=== PATIENT | female | born 1955 | race Caucasian/White ===

== ENCOUNTER → 2017-04-06 | Outpatient (CLI) | payer MEDICARE ==
--- NOTE | 2017-04-06 09:39 | CT ---
EXAMINATION TYPE: CT abdomen w con DATE OF EXAM: 04/06/2017 COMPARISON: Outside CT 10/23/2016 HISTORY: 62 year-old female liver abscess TECHNIQUE: Contiguous axial scanning of the abdomen following administration of 100 ml Omnipaque 300 IV contrast. Delayed images through the kidneys and coronal/sagittal reconstructions performed. CT DLP: 757.60 mGycm Automated exposure control for dose reduction was used. FINDINGS: The heart is normal size without pericardial effusion. Lung bases clear without pleural effusion. The previously seen inflammatory hypodense lesion anterior segment 2/3 of the left hepatic lobe has l argely resolved. There is minimal residual parenchymal hypodensity anteriorly measuring 1 cm. The adj acent inflammatory changes in the omentum and abnormal wall thickening of the adjacent mid transverse colon have also resolved. No other focal liver lesion seen. Portal venous system is patent. No bilia ry ductal dilatation. Gallbladder, adrenal glands, kidneys, spleen, and pancreas appear within normal limits. Small diverticulum of the second portion of the duodenum projecting into the pancreatic head region. No dilated small bowel, free fluid, or free air. Scattered nonenlarged mesenteric lymph nodes are see n. Scattered mild stool. Mild diverticulosis of the visualized descending colon. Bones: Degenerative changes lower lumbar spine. No osseous destructive process. IMPRESSION: 1. THE PREVIOUS INFLAMMATORY LESION/ABSCESS IN THE LEFT LIVER LOBE HAS LARGELY RESOLVED. THERE IS MIN IMAL RESIDUAL 1 CM HYPODENSITY IN THIS AREA THAT COULD REPRESENT TRACE RESIDUAL INFLAMMATION OR SCARR ING. 2. THE PREVIOUSLY SEEN PERIHEPATIC INFLAMMATION AND ABNORMAL WALL THICKENING OF THE ADJACENT MID LITTLE SVERSE COLON HAVE ALSO RESOLVED. 3. LEFT HEMICOLONIC DIVERTICULOSIS.
== END | disposition home or self-care (01) ==
LOC: RADCTMAIN 08:12
PROVIDERS: ATTEND Family Medicine
DX: K57.30 Diverticulosis of large intestine without perforation or abscess without bleeding (principal)
CPT/HCPCS: 74160; Q9967

== ENCOUNTER 2018-03-01 09:56 | Inpatient (IN) | payer MEDICARE ==
[2018-03-01] MEDS ORDERED: KETOROLAC 30 MG/ML 1 ML VIAL IVP STA (10:19)
[2018-03-01] MEDS ORDERED: SODIUM CHLORIDE 0.9% 1,000 ML IV STA (10:19)
--- NOTE | 2018-03-01 10:33 | ED ---
Abdominal Pain HPI - General Chief Complaint: Abdominal Pain Stated Complaint: POSS DIVERTICULITIS Time Seen by Provider: 03/01/18 10:12 Source: patient, RN notes reviewed Mode of arrival: ambulatory Limitations: no limitations - History of Present Illness Initial Comments: This is a 62-year-old female presents emergency Department chief complaint of left lower abdominal pain. Patient has a history of diverticulitis with abscess in her liver. She states she had a CAT scan last March which showed everything cleared. Patient had no surgery regarding this. Patient states that over the last couple days she's noticed increased pain and change in bowel habits. She does admit that she has IBS but she feels this is not her IBS this time. Patient reports no fever no chills no night sweats. Patient states pain is nonradiating at this time. She has no dysuria no hematuria denies any nausea vomiting. Patient also complains of gout of her right foot. - Related Data Home Medications Medication Instructions Recorded Confirmed Colchicine [Colcrys] 0.6 mg PO DAILY PRN 03/01/18 03/01/18 Escitalopram [Lexapro] 20 mg PO DAILY 03/01/18 03/01/18 Ibuprofen [Advil] 200 mg PO Q6HR PRN 03/01/18 03/01/18 Levothyroxine Sodium [Synthroid] 137 mcg PO DAILY 03/01/18 03/01/18 Omeprazole 40 mg PO DAILY 03/01/18 03/01/18 amLODIPine BESYLATE/BENAZEPRIL 1 cap PO DAILY 03/01/18 03/01/18 [Lotrel 5-10 mg Capsule] buPROPion HCL [Wellbutrin XL] 300 mg PO DAILY 03/01/18 03/01/18 Allergies Allergy/AdvReac Type Severity Reaction Status Date / Time apple Allergy Unknown Verified 03/01/18 10:33 peach Allergy Unknown Verified 03/01/18 10:33 pear Allergy Unknown Verified 03/01/18 10:33 TREE FRUIT (NON-CITRUS) Allergy Unknown Uncoded 03/01/18 10:33 Review of Systems ROS Statement: Those systems with pertinent positive or pertinent negative responses have been documented in the HPI. ROS Other: All systems not noted in ROS Statement are negative. Past Medical History Past Medical History: Hypertension, Thyroid Disorder Additional Past Medical History / Comment(s): diverticulitis, liver abcess History of Any Multi-Drug Resistant Organisms: None Reported Past Surgical History: Joint Replacement Additional Past Surgical History / Comment(s): partial thyroidectomy Past Psychological History: Depression Smoking Status: Former smoker Past Alcohol Use History: Occasional Past Drug Use History: None Reported General Exam Limitations: no limitations General appearance: alert, in no apparent distress Head exam: Present: atraumatic, normocephalic, normal inspection Respiratory exam: Present: normal lung sounds bilaterally. Absent: respiratory distress, wheezes, rales, rhonchi, stridor Cardiovascular Exam: Present: regular rate, normal rhythm, normal heart sounds. Absent: systolic murmur, diastolic murmur, rubs, gallop, clicks GI/Abdominal exam: Present: soft, tenderness (Moderate tenderness left side, left lower quadrant), normal bowel sounds. Absent: distended, guarding, rebound , rigid Extremities exam: Present: other (Right foot first MTP there is moderate swelling and mild erythema and tenderness) Back exam: Absent: CVA tenderness (R), CVA tenderness (L) Skin exam: Present: warm, dry Course Vital Signs 03/01/18 10:09 Temperature 98.3 F Pulse Rate 91 Respiratory 18 Rate Blood Pressure 151/85 O2 Sat by Pulse 97 Oximetry Medical Decision Making - Medical Decision Making 62-year-old female presents from for abdominal pain. Patient's found to have diverticulitis with probable abscess. Patient was started on Levaquin and Flagyl and admitted with consult to surgery. - Lab Data Result diagrams: 03/01/18 10:29 03/01/18 10:29 Lab Results 03/01/18 03/01/18 03/01/18 Range/Units 10:29 10:29 10:29 WBC 8.7 (3.8-10.6) k/uL RBC 4.91 (3.80-5.40) m/uL Hgb 14.0 (11.4-16.0) gm/dL Hct 43.0 (34.0-46.0) % MCV 87.6 (80.0-100.0) fL MCH 28.5 (25.0-35.0) pg MCHC 32.6 (31.0-37.0) g/dL RDW 12.7 (11.5-15.5) % Plt Count 291 (150-450) k/uL Neutrophils % 75 % Lymphocytes % 17 % Monocytes % 5 % Eosinophils % 2 % Basophils % 1 % Neutrophils # 6.5 (1.3-7.7) k/uL Lymphocytes # 1.5 (1.0-4.8) k/uL Monocytes # 0.5 (0-1.0) k/uL Eosinophils # 0.1 (0-0.7) k/uL Basophils # 0.1 (0-0.2) k/uL Sodium 140 (137-145) mmol/L Potassium 3.9 (3.5-5.1) mmol/L Chloride 100 (98-107) mmol/L Carbon Dioxide 26 (22-30) mmol/L Anion Gap 14 mmol/L BUN 12 (7-17) mg/dL Creatinine 0.63 (0.52-1.04) mg/dL Est GFR (CKD-EPI)AfAm >90 (>60 ml/min/1.73 sqM) Est GFR (CKD-EPI)NonAf >90 (>60 ml/min/1.73 sqM) Glucose 94 (74-99) mg/dL Uric Acid 5.6 (3.7-7.4) mg/dL Calcium 9.3 (8.4-10.2) mg/dL Total Bilirubin 0.4 (0.2-1.3) mg/dL AST 19 (14-36) U/L ALT 29 (9-52) U/L Alkaline Phosphatase 71 (38-126) U/L Total Protein 6.9 (6.3-8.2) g/dL Albumin 4.3 (3.5-5.0) g/dL Amylase 74 (30-110) U/L Lipase 166 (23-300) U/L Urine Color Yellow Urine Appearance Clear (Clear) Urine pH 6.0 (5.0-8.0) Ur Specific [place] 1.010 (1.001-1.035) Urine Protein Negative (Negative) Urine Glucose (UA) Negative (Negative) Urine Ketones Trace H (Negative) Urine Blood Negative (Negative) Urine Nitrite Negative (Negative) Urine Bilirubin Negative (Negative) Urine Urobilinogen <2.0 (<2.0) mg/dL Ur Leukocyte Esterase Negative (Negative) Disposition Clinical Impression: Diverticulitis of intestine with abscess Disposition: ADMITTED IP TO THIS HOSP Condition: Stable Referrals: Kelly Nguyễn MD [Primary Care Provider] - 1-2 days
[2018-03-01 10:47] LABS: Appearance,Urine Clear (Clear); Bilirubin,Urine Negative (Negative); Blood,Urine Negative (Negative); Color,Urine Yellow; Glucose,Urine (UA) Negative (Negative); Ketones,Urine Trace (Negative); Leukocyte Esterase,Urine Negative (Negative); Nitrite,Urine Negative (Negative); Protein,Urine Negative (Negative); Urobilinogen,Urine <2.0 mg/dL (<2.0)
[2018-03-01 10:48] LABS: Basophils # (A) 0.1 k/uL (0-0.2); Basophils % (A) 1 %; Eosinophils # (A) 0.1 k/uL (0-0.7); Eosinophils % (A) 2 %; Lymphocytes # (A) 1.5 k/uL (1.0-4.8); Lymphocytes % (A) 17 %; MCH 28.5 pg (25.0-35.0); MCHC 32.6 g/dL (31.0-37.0); MCV 87.6 fL (80.0-100.0); Mean Platelet Volume 7.2; Monocytes # (A) 0.5 k/uL (0-1.0); Monocytes % (A) 5 %; Neutrophils # (A) 6.5 k/uL (1.3-7.7); Neutrophils % (A) 75 %; Platelet Count 291 k/uL (150-450); RBC 4.91 m/uL (3.80-5.40); RDW 12.7 % (11.5-15.5); WBC 8.7 k/uL (3.8-10.6)
[2018-03-01 10:56] LABS: ALT 29 U/L (9-52); AST 19 U/L (14-36); Albumin 4.3 g/dL (3.5-5.0); Alkaline Phosphatase 71 U/L (38-126); Amylase 74 U/L (30-110); Anion Gap 14 mmol/L; Blood Urea Nitrogen 12 mg/dL (7-17); Calcium 9.3 mg/dL (8.4-10.2); Carbon Dioxide 26 mmol/L (22-30); Chloride 100 mmol/L (98-107); Glucose 94 mg/dL (74-99); Lipase 166 U/L (23-300); Potassium 3.9 mmol/L (3.5-5.1); Sodium 140 mmol/L (137-145); Total Bilirubin 0.4 mg/dL (0.2-1.3); Total Protein 6.9 g/dL (6.3-8.2); Uric Acid 5.6 mg/dL (3.7-7.4)
--- NOTE | 2018-03-01 11:32 | CT ---
EXAMINATION TYPE: CT abdomen pelvis w con DATE OF EXAM: 03/01/2018 COMPARISON: 04/06/2017 HISTORY: Patient complains of LLQ pain, nausea, and diarrhea. CT DLP: 1564 mGycm Automated exposure control for dose reduction was used. CONTRAST: CT scan of the abdomen pelvis is performed with IV Contrast, patient injected with 100 mL of Isovue 3 00. FINDINGS- LUNG BASES- No significant abnormality is appreciated. LIVER/GB- No gross abnormality is appreciated. PANCREAS- No gross abnormality is seen. SPLEEN- No gross abnormality is seen. ADRENALS-stable 1 cm left adrenal nodule. KIDNEYS/BLADDER- no hydronephrosis nephrolithiasis or renal mass. BOWEL-there are numerous diverticula within the sigmoid colon with marked wall thickening and surroun ding pericolonic inflammatory change. Small amount of free fluid seen. Findings are most typical of d iverticulitis. A colitis would also be in the differential diagnosis. Follow to resolution to exclude underlying mucosal lesion. The appendix is normal. There is some fatty replacement of the wall of the right:. This is a nonspeci fic finding. There is a small hiatal hernia. LYMPH NODES- No greater than 1cm abdominal or pelvic lymph nodes are appreciated. OSSEOUS STRUCTURES-hypertrophic and degenerative changes of the spine are noted. OTHER- tiny periumbilical hernia noted. Atherosclerotic changes aorta but no evidence of aneurysm. IMPRESSION- 1. Marked wall thickening sigmoid colon and rectosigmoid junction with pericolonic inflammatory hilliard e and small amount of free fluid. Diverticulitis and colitis in the differential diagnosis. Would inc lude colitis given the inflammation appears more centered around the rectosigmoid junction rather ne[place] n the diverticulum. However, given the significant presence of diverticulum in the region diverticuli tis should be considered. Tiny 7 mm fluid density adjacent to the rectum most likely is related to an incidental tiny ovarian follicle. Tiny abscess not entirely excluded and could be followed on a shor t-term basis. Recommend follow up to resolution of the colonic findings to exclude underlying mucosal lesion.
[2018-03-01] MEDS ORDERED: LEVOFLOXACIN 750MG-D5W PMX 750 MG in DEXTROSE/WATER 1 150ML.BAG IVPB STA (11:47)
[2018-03-01] MEDS ORDERED: metroNIDAZOLE-NS PMX 500 MG in SALINE 1 100ML.BAG IVPB STA (11:50)
[2018-03-01] MEDS ORDERED: NALOXONE 0.4 MG/ML 1 ML VIAL IV PRN (11:50)
[2018-03-01] MEDS ORDERED: ONDANSETRON 4 MG/2 ML VIAL IVP PRN (11:50)
[2018-03-01] MEDS ORDERED: ACETAMINOPHEN TAB 325 MG TAB PO PRN (11:50)
[2018-03-01] MEDS: SODIUM CHLORIDE 0.9% 1,000 ML IV SCH (12:13)
[2018-03-01] MEDS ORDERED: COLCHICINE 0.6 MG EACH PO PRN (13:16)
[2018-03-01] MEDS ORDERED: IBUPROFEN 200 MG TAB PO PRN (13:16)
--- NOTE | 2018-03-01 13:33 | P.HPIM ---
History of Present Illness H&P Date: 03/01/18 Chief Complaint: Abdominal pain Desi Wiseman is a 62 year old female patient of Dr Nguyễn, who presented to [facility] ER with a chief complaint of abdominal pain, patient stated that her pain started 3 weeks ago, she tried to stay on clear liquid diet and treat her symptoms on her own, however she started having worsening severe pain in the left lower quadrant she try to contact Dr. Nguyễn' s office, and then she decided to come to emergency room. She has known history of acute diverticulitis in the past with multiple exacerbations requiring prolonged courses of antibiotics, she denies ever having any abdominal surgery. She was evaluated in the emergency room computed tomography scan revealed evidence of acute diverticulitis with possible abscess formation she was started on IV antibiotics and admitted to medical floor surgical consultation was requested. Past medical history: Patient has known history of episodes of acute diverticulitis in the past, she had a history of thyroid adenoma requiring partial thyroidectomy, she has known history of gout, otherwise she denies any significant past medical history, there is no history of coronary artery disease no history of congestive heart failure she denies any history of lung disease or kidney disease. Social history: Patient used to smoke she quit 20 years ago, she drinks alcohol rarely, she denies any kind of illicit drug use, she lives independently and able to take care of her daily needs. Family history: Sister and aunt were diagnosed with breast cancer otherwise no significant history could be obtained Past surgical history significant for partial thyroidectomy otherwise patient denies any symptoms Past Medical History Past Medical History: GERD/Reflux, Hyperlipidemia, Hypertension, Thyroid Disorder Additional Past Medical History / Comment(s): IBS, diverticulitis, past liver abscess, R foot gout, hypothyroid History of Any Multi-Drug Resistant Organisms: None Reported Past Surgical History: Joint Replacement Additional Past Surgical History / Comment(s): Partial thyroidectomy for adenoma , EGD/colonoscopy with benign polypectomy, diagnostic laparoscopy-fallopian tubes "blocked", Past Anesthesia/Blood Transfusion Reactions: Postoperative Nausea & Vomiting ( PONV) Smoking Status: Former smoker - Past Family History Father Family Medical History: Congestive Heart Failure (CHF), Coronary Artery Disease (CAD), Diabetes Mellitus Additional Family Medical History / Comment(s): Father at the age of 72 yrs. Mother Family Medical History: No Reported History Additional Family Medical History / Comment(s): Mother was healthy and lived to be 96 yrs old. Medications and Allergies Home Medications Medication Instructions Recorded Confirmed Type Colchicine [Colcrys] 0.6 mg PO DAILY PRN 03/01/18 03/01/18 History Escitalopram [Lexapro] 20 mg PO DAILY 03/01/18 03/01/18 History Ibuprofen [Advil] 200 mg PO Q6HR PRN 03/01/18 03/01/18 History Levothyroxine Sodium [Synthroid] 137 mcg PO DAILY 03/01/18 03/01/18 History Omeprazole 40 mg PO DAILY 03/01/18 03/01/18 History amLODIPine BESYLATE/BENAZEPRIL 1 cap PO DAILY 03/01/18 03/01/18 History [Lotrel 5-10 mg Capsule] buPROPion HCL [Wellbutrin XL] 300 mg PO DAILY 03/01/18 03/01/18 History Allergies Allergy/AdvReac Type Severity Reaction Status Date / Time apple Allergy Unknown Verified 03/01/18 10:33 peach Allergy Unknown Verified 03/01/18 10:33 pear Allergy Unknown Verified 03/01/18 10:33 TREE FRUIT (NON-CITRUS) Allergy Unknown Uncoded 03/01/18 10:33 Physical Exam Vitals: Vital Signs Temp Pulse Pulse Resp BP BP Pulse Ox 03/01/18 12:40 98 F 75 18 133/80 97 03/01/18 12:13 99.1 F 83 18 149/68 99 03/01/18 10:09 98.3 F 91 18 151/85 97 Intake and Output 02/28/18 03/01/18 03/01/18 22:59 06:59 14:59 Other: Weight 80.739 kg In general patient is alert and oriented 3 in no apparent distress HEENT head normocephalic and atraumatic Neck is supple no JVD no goiter no lymphadenopathy Chest exam reveals a few scattered crackles bilaterally no wheezing Cardiac exam reveals regular heart sounds S1 and S2 no gallops no murmurs Abdomen is soft with severe tenderness in the left lower quadrant no rigidity there is some rebound normal bowel sounds in all 4 quadrants Extremity exam reveals no edema there is erythema and tenderness at the base of the right big toe Results CBC & Chem 7: 03/01/18 10:29 03/01/18 10:29 Labs: Abnormal Lab Results - Last 24 Hours (Table) 03/01/18 Range/Units 10:29 Urine Ketones Trace H (Negative) Thrombosis Risk Factor Assmnt - Choose All That Apply Any of the Below Risk Factors Present?: Yes Each Factor Represents 1 point: Hx of IBD, Obesity (BMI >25) Other Risk Factors: Yes Each Risk Factor Represents 2 Points: Age 61-74 years Other congenital or acquired thrombophilia - If yes, enter type in comment: No Thrombosis Risk Factor Assessment Total Risk Factor Score: 4 Thrombosis Risk Factor Assessment Level: Moderate Risk Assessment and Plan Plan: #1 acute diverticulitis, with possible small abscess patient is admitted to medical floor, she was started on IV antibiotic Levaquin and Flagyl, surgical consultation was requested. #2 acute gout exacerbation, patient is maintained on colchicine will continue, will check uric acid level #3 underlying history of hypothyroidism, status post partial thyroidectomy for adenoma, continue with Synthroid 137 g daily #4 underlying history of hypertension continue current medications #5 underlying history of depression maintained on Lexapro and bupropion will continue Medication and labs were reviewed, computed tomography scan reviewed Will recheck labs in a.m. Add Lovenox 40 mg subcu daily for DVT prophylaxis continue with omeprazole 40 mg by mouth daily for GI prophylaxis
--- NOTE | 2018-03-01 14:28 | P.GSCN ---
History of Present Illness Consult date: 03/01/18 Reason for Consult: Abdominal pain History of present illness: 62-year-old female who presented to the emergency room with a chief complaint of developing left lower quadrant abdominal pain. Patient stated it started approximately 3 weeks ago. Patient states that she did start a clear liquid diet on her own trying to control the discomfort did not work. Patient states she does have a history of diverticulosis has been treated in the past for diverticulitis. Additionally reports has been treated several years ago for a liver abscess had to be on prolonged IV antibiotics Given the above clinical presentation surgical consultation has been requested. Patient states that she has a history of irritable bowel syndrome and diverticulosis. Has been following closely a diverticulosis diet. Patient states her last colonoscopy was approximately 2 years ago a polyp was removed. The colonoscopy was done in [place]. Patient states that she's had multiple exacerbations requiring long IV antibiotic use. In the emergency room patient did have a CAT scan of the abdomen pelvis with contrast to evaluate the left lower quadrant pain. Reviewing the report pancreas no gross abnormality liver no gross abnormality. The bowel numerous diverticuli within the sigmoid colon marked wall thickening small amount of free fluid seen findings are typical of diverticulitis. Appendix appears normal a small hiatal hernia. Review of Systems Essentially unremarkable except as mentioned in the present illness Past Medical History Past Medical History: GERD/Reflux, Hyperlipidemia, Hypertension, Thyroid Disorder Additional Past Medical History / Comment(s): IBS, diverticulitis, past liver abscess, R foot gout, hypothyroid History of Any Multi-Drug Resistant Organisms: None Reported Past Surgical History: Joint Replacement Additional Past Surgical History / Comment(s): Partial thyroidectomy for adenoma , EGD/colonoscopy with benign polypectomy, diagnostic laparoscopy-fallopian tubes "blocked", Past Anesthesia/Blood Transfusion Reactions: Postoperative Nausea & Vomiting ( PONV) Smoking Status: Former smoker - Past Family History Father Family Medical History: Congestive Heart Failure (CHF), Coronary Artery Disease (CAD), Diabetes Mellitus Additional Family Medical History / Comment(s): Father at the age of 72 yrs. Mother Family Medical History: No Reported History Additional Family Medical History / Comment(s): Mother was healthy and lived to be 96 yrs old. Medications and Allergies Home Medications Medication Instructions Recorded Confirmed Type Colchicine [Colcrys] 0.6 mg PO DAILY PRN 03/01/18 03/01/18 History Escitalopram [Lexapro] 20 mg PO DAILY 03/01/18 03/01/18 History Ibuprofen [Advil] 200 mg PO Q6HR PRN 03/01/18 03/01/18 History Levothyroxine Sodium [Synthroid] 137 mcg PO DAILY 03/01/18 03/01/18 History Omeprazole 40 mg PO DAILY 03/01/18 03/01/18 History amLODIPine BESYLATE/BENAZEPRIL 1 cap PO DAILY 03/01/18 03/01/18 History [Lotrel 5-10 mg Capsule] buPROPion HCL [Wellbutrin XL] 300 mg PO DAILY 03/01/18 03/01/18 History Allergies Allergy/AdvReac Type Severity Reaction Status Date / Time apple Allergy Unknown Verified 03/01/18 10:33 peach Allergy Unknown Verified 03/01/18 10:33 pear Allergy Unknown Verified 03/01/18 10:33 TREE FRUIT (NON-CITRUS) Allergy Unknown Uncoded 03/01/18 10:33 Surgical - Exam Vital Signs Temp Pulse Resp BP Pulse Ox 98.3 F 91 18 151/85 97 03/01/18 10:09 03/01/18 10:09 03/01/18 10:09 03/01/18 10:09 03/01/18 10:09 GENERAL APPEARANCE: 62-year-old female sitting up in bed is alert, oriented, in no acute distress. VITAL SIGNS: Reviewed HEENT: Head is normocephalic and atraumatic. Pupils are equal and reactive. The nares are patent. Oropharynx is clear without lesions. NECK: Supple without lymphadenopathy. Traches midline. HEART: S1, S2. Regular rate and rhythm. Denying chest pain LUNGS: No crackles or wheezes are heard. Adequate air movement bilaterally on room air no shortness of breath ABDOMEN: Soft, tenderness to the left lower quadrant nondistended with good bowel sounds. No peritoneal signs. No palpable organomegaly or masses. Reports a nausea sensation no emesis states had a bowel movement passing gas EXTREMITIES: Normal skin color and turgor. No cyanosis, rash, ulceration, clubbing or edema. Radial pedal pulses are 2/4 bilaterally. NEUROLOGICAL: No focal deficits. Strength and sensation are grossly intact. Results - Labs 03/01/18 10:29 03/01/18 10:29 Abnormal Lab Results - Last 24 Hours (Table) 03/01/18 Range/Units 10:29 Urine Ketones Trace H (Negative) Diabetes panel 03/01/18 Range/Units 10:29 Sodium 140 (137-145) mmol/L Potassium 3.9 (3.5-5.1) mmol/L Chloride 100 (98-107) mmol/L Carbon Dioxide 26 (22-30) mmol/L BUN 12 (7-17) mg/dL Creatinine 0.63 (0.52-1.04) mg/dL Glucose 94 (74-99) mg/dL Calcium 9.3 (8.4-10.2) mg/dL AST 19 (14-36) U/L ALT 29 (9-52) U/L Alkaline Phosphatase 71 (38-126) U/L Total Protein 6.9 (6.3-8.2) g/dL Albumin 4.3 (3.5-5.0) g/dL Calcium panel 03/01/18 Range/Units 10:29 Calcium 9.3 (8.4-10.2) mg/dL Albumin 4.3 (3.5-5.0) g/dL Pituitary panel 03/01/18 Range/Units 10:29 Sodium 140 (137-145) mmol/L Potassium 3.9 (3.5-5.1) mmol/L Chloride 100 (98-107) mmol/L Carbon Dioxide 26 (22-30) mmol/L BUN 12 (7-17) mg/dL Creatinine 0.63 (0.52-1.04) mg/dL Glucose 94 (74-99) mg/dL Calcium 9.3 (8.4-10.2) mg/dL Adrenal panel 03/01/18 Range/Units 10:29 Sodium 140 (137-145) mmol/L Potassium 3.9 (3.5-5.1) mmol/L Chloride 100 (98-107) mmol/L Carbon Dioxide 26 (22-30) mmol/L BUN 12 (7-17) mg/dL Creatinine 0.63 (0.52-1.04) mg/dL Glucose 94 (74-99) mg/dL Calcium 9.3 (8.4-10.2) mg/dL Total Bilirubin 0.4 (0.2-1.3) mg/dL AST 19 (14-36) U/L ALT 29 (9-52) U/L Alkaline Phosphatase 71 (38-126) U/L Total Protein 6.9 (6.3-8.2) g/dL Albumin 4.3 (3.5-5.0) g/dL Assessment and Plan Assessment: Impression Present on admission left lower quadrant abdominal pain suspect due to acute diverticulitis Computed tomography scan of abdomen and pelvis show evidence of an acute diverticulitis possible small abscess History of a liver abscess treated with IV antibiotics 2 years prior Depressive disorder History of irritable bowel syndrome History of prior acute diverticulitis exacerbations requiring admission with IV antibiotic Plan Continue IV antibiotic Levaquin and Flagyl as ordered IV fluid for hydration pain control DVT and GI prophylaxis Maintain clear liquid diet Home meds as appropriate Will follow with you with further surgical recommendations pending clinical course Surgical consultation note dictated for The above impression and plan of care have been discussed and directed by signing physician. Kamla Gregory nurse practitioner acting as scribe for signing physician.
[2018-03-01] MEDS: metroNIDAZOLE-NS PMX 500 MG in SALINE 1 100ML.BAG IVPB SCH ×2 (15:40→21:51)
[2018-03-01] MEDS: KETOROLAC 30 MG/ML 1 ML VIAL IVP PRN (18:22)
[2018-03-02] MEDS: HYDROcodone/APAP 5-325MG 1 EACH TAB PO PRN ×4 (00:29→21:12)
[2018-03-02] MEDS: metroNIDAZOLE-NS PMX 500 MG in SALINE 1 100ML.BAG IVPB SCH ×4 (05:02→21:12)
[2018-03-02] MEDS: SODIUM CHLORIDE 0.9% 1,000 ML IV SCH ×2 (05:03→12:49)
[2018-03-02] MEDS: LEVOTHYROXINE 137 MCG TAB PO SCH (05:38)
[2018-03-02] MEDS: amLODIPine 10 MG TAB PO SCH (09:25)
[2018-03-02] MEDS: PANTOPRAZOLE 40 MG TABLET PO SCH (09:25)
[2018-03-02] MEDS: buPROPion XL 300 MG TAB.ER.24H PO SCH (09:26)
[2018-03-02] MEDS: LEVOFLOXACIN 500MG-D5W PMX 500 MG in DEXTROSE/WATER 1 100ML.BAG IVPB SCH (09:27)
[2018-03-02] MEDS: ENOXAPARIN 40 MG/0.4 ML SYRINGE SQ SCH (09:27)
[2018-03-02] MEDS: KETOROLAC 30 MG/ML 1 ML VIAL IVP PRN (09:27)
[2018-03-02] MEDS: LISINOPRIL 10 MG TAB PO SCH (09:27)
[2018-03-02] MEDS: ESCITALOPRAM 20 MG TAB PO SCH (09:27)
--- NOTE | 2018-03-02 10:04 | P.PN ---
Progress Note - Text Progress Note Date: 03/02/18 The patient feels better. She has less abdominal pain. On exam her vital signs are still. Her abdomen soft. Resolving diverticulitis. Patient will have her diet advanced. She'll most likely be discharged home tomorrow.
[2018-03-02 11:37] VITALS: BMI 29.6
--- NOTE | 2018-03-02 11:58 | P.PN ---
Subjective Progress Note Date: 03/02/18 Desi Wiseman is a 62 year old female patient of Dr Nguyễn, who presented to [facility] ER with a chief complaint of abdominal pain, patient stated that her pain started 3 weeks ago, she tried to stay on clear liquid diet and treat her symptoms on her own, however she started having worsening severe pain in the left lower quadrant she try to contact Dr. Nguyễn' s office, and then she decided to come to emergency room. She has known history of acute diverticulitis in the past with multiple exacerbations requiring prolonged courses of antibiotics, she denies ever having any abdominal surgery. She was evaluated in the emergency room computed tomography scan revealed evidence of acute diverticulitis with possible abscess formation she was started on IV antibiotics and admitted to medical floor surgical consultation was requested. On 03/02/2018 patient is alert and oriented 3 in no apparent distress she is still complaining of pain in the left lower quadrant but less severe than yesterday otherwise she denies any complaints there is no fever or chills no headache or dizziness no chest pain no shortness of breath no cough no nausea or vomiting no diarrhea and no urinary symptoms. Objective - Vital Signs Vital signs: Vital Signs Temp 98.4 F 03/02/18 05:00 Pulse 66 03/02/18 05:00 Resp 16 03/02/18 05:00 BP 149/72 03/02/18 05:00 Pulse Ox 93 L 03/02/18 05:00 Intake & Output 03/01/18 03/02/18 03/02/18 18:59 06:59 18:59 Intake Total 3100 Balance 3100 Weight 80.739 kg 80.739 kg Intake: Intake, IV Titration 2100 Amount Sodium Chloride 0.9% 1, 2000 000 ml @ 125 mls/hr IV . Q8H [facility] Rx#:[id number] metroNIDAZOLE-NS PMX 500 100 mg In Saline 1 100ml.bag @ 100 mls/hr IVPB Q6H [facility] Rx#:[id number] Oral 1000 Other: # Voids 2 - Exam In general patient is alert and oriented 3 in no apparent distress HEENT head normocephalic and atraumatic Neck is supple no JVD no goiter no lymphadenopathy Chest exam reveals a few scattered crackles bilaterally no wheezing Cardiac exam reveals regular heart sounds S1 and S2 no gallops no murmurs Abdomen is soft with tenderness in the left lower quadrant, improved since yesterday no rigidity no rebound normal bowel sounds in all 4 quadrants Extremity exam reveals no edema there is erythema and tenderness at the base of the right big toe - Labs CBC & Chem 7: 03/01/18 10:29 03/01/18 10:29 Assessment and Plan Plan: #1 acute diverticulitis, with possible small abscess patient is admitted to medical floor, she was started on IV antibiotic Levaquin and Flagyl, surgical consultation was requested. Will advance diet to full liquid diet #2 acute gout exacerbation, patient is maintained on colchicine will continue, will check uric acid level #3 underlying history of hypothyroidism, status post partial thyroidectomy for adenoma, continue with Synthroid 137 g daily #4 underlying history of hypertension continue current medications #5 underlying history of depression maintained on Lexapro and bupropion will continue Medication and labs were reviewed, computed tomography scan reviewed Lovenox 40 mg subcu daily for DVT prophylaxis continue with omeprazole 40 mg by mouth daily for GI prophylaxis
[2018-03-02] MEDS: ZOLPIDEM 5 MG TAB PO PRN (22:58)
[2018-03-03] MEDS: metroNIDAZOLE-NS PMX 500 MG in SALINE 1 100ML.BAG IVPB SCH ×4 (03:04→21:44)
[2018-03-03] MEDS: LEVOTHYROXINE 137 MCG TAB PO SCH (05:37)
[2018-03-03] MEDS: HYDROcodone/APAP 5-325MG 1 EACH TAB PO PRN ×3 (06:21→21:43)
[2018-03-03] MEDS: SODIUM CHLORIDE 0.9% 1,000 ML IV SCH ×2 (07:22→14:55)
[2018-03-03] MEDS: ENOXAPARIN 40 MG/0.4 ML SYRINGE SQ SCH (07:24)
[2018-03-03] MEDS: amLODIPine 10 MG TAB PO SCH (07:26)
[2018-03-03] MEDS: PANTOPRAZOLE 40 MG TABLET PO SCH (07:26)
[2018-03-03] MEDS: LISINOPRIL 10 MG TAB PO SCH (07:27)
[2018-03-03] MEDS: buPROPion XL 300 MG TAB.ER.24H PO SCH (07:27)
[2018-03-03] MEDS: ESCITALOPRAM 20 MG TAB PO SCH (07:27)
[2018-03-03] MEDS: LEVOFLOXACIN 500MG-D5W PMX 500 MG in DEXTROSE/WATER 1 100ML.BAG IVPB SCH (07:27)
[2018-03-03 07:43] LABS: Basophils % (A) 1 %; Eosinophils # (A) 0.1 k/uL (0-0.7); Eosinophils % (A) 3 %; HCT 38.2 % (34.0-46.0); HGB 12.3 gm/dL (11.4-16.0); Lymphocytes # (A) 1.2 k/uL (1.0-4.8); Lymphocytes % (A) 30 %; MCH 28.5 pg (25.0-35.0); MCHC 32.3 g/dL (31.0-37.0); MCV 88.5 fL (80.0-100.0); Mean Platelet Volume 7.2; Monocytes # (A) 0.3 k/uL (0-1.0); Monocytes % (A) 7 %; Neutrophils # (A) 2.2 k/uL (1.3-7.7); Neutrophils % (A) 57 %; Platelet Count 249 k/uL (150-450); RBC 4.32 m/uL (3.80-5.40); RDW 12.7 % (11.5-15.5); WBC 3.9 k/uL (3.8-10.6)
[2018-03-03 08:04] LABS: ALT 27 U/L (9-52); AST 16 U/L (14-36); Albumin 3.5 g/dL (3.5-5.0); Alkaline Phosphatase 55 U/L (38-126); Anion Gap 10 mmol/L; Blood Urea Nitrogen 3 mg/dL (7-17); Calcium 9.4 mg/dL (8.4-10.2); Carbon Dioxide 28 mmol/L (22-30); Chloride 102 mmol/L (98-107); Glucose 88 mg/dL (74-99); Potassium 4.1 mmol/L (3.5-5.1); Sodium 140 mmol/L (137-145); Total Bilirubin 0.2 mg/dL (0.2-1.3)
--- NOTE | 2018-03-03 09:18 | P.PN ---
Progress Note - Text Progress Note Date: 03/03/18 The patient feels better. She has minimal complaints of pain. On exam her vital signs are stable. Her abdomen soft. Resolving diverticulitis. Patient is stable for discharge. She may follow-up next week in the office.
--- NOTE | 2018-03-03 15:31 | P.PN ---
Subjective Progress Note Date: 03/03/18 Desi Wiseman is a 62 year old female patient of Dr Nguyễn, who presented to [facility] ER with a chief complaint of abdominal pain, patient stated that her pain started 3 weeks ago, she tried to stay on clear liquid diet and treat her symptoms on her own, however she started having worsening severe pain in the left lower quadrant she try to contact Dr. Nguyễn' s office, and then she decided to come to emergency room. She has known history of acute diverticulitis in the past with multiple exacerbations requiring prolonged courses of antibiotics, she denies ever having any abdominal surgery. She was evaluated in the emergency room computed tomography scan revealed evidence of acute diverticulitis with possible abscess formation she was started on IV antibiotics and admitted to medical floor surgical consultation was requested. On 03/02/2018 patient is alert and oriented 3 in no apparent distress she is still complaining of pain in the left lower quadrant but less severe than yesterday otherwise she denies any complaints there is no fever or chills no headache or dizziness no chest pain no shortness of breath no cough no nausea or vomiting no diarrhea and no urinary symptoms. 03/13/2018 patient is alert and oriented still complaining of pain and tenderness in the left lower quadrant otherwise she denies any complaints she is tolerating full liquid diet well there is no fever or chills no headache or dizziness no chest pain or shortness of breath no cough no vomiting no diarrhea and no urinary symptoms Objective - Vital Signs Vital signs: Vital Signs Temp 98.8 F 03/03/18 14:08 Pulse 82 03/03/18 14:08 Resp 18 03/03/18 14:08 BP 123/73 03/03/18 14:08 Pulse Ox 96 03/03/18 14:08 Intake & Output 03/02/18 03/03/18 03/03/18 18:59 06:59 18:59 Intake Total 500 Balance 500 Weight 80.739 kg Intake: Intake, IV Titration 500 Amount Sodium Chloride 0.9% 1, 500 000 ml @ 125 mls/hr IV . Q8H [facility] Rx#:[id number] Other: # Voids 5 1 # Bowel Movements 1 1 - Exam In general patient is alert and oriented 3 in no apparent distress HEENT head normocephalic and atraumatic Neck is supple no JVD no goiter no lymphadenopathy Chest exam reveals a few scattered crackles bilaterally no wheezing Cardiac exam reveals regular heart sounds S1 and S2 no gallops no murmurs Abdomen is soft with tenderness in the left lower quadrant, improved since yesterday no rigidity no rebound normal bowel sounds in all 4 quadrants Extremity exam reveals no edema there is erythema and tenderness at the base of the right big toe - Labs CBC & Chem 7: 03/03/18 06:52 03/03/18 06:52 Labs: Abnormal Lab Results - Last 24 Hours (Table) 03/03/18 Range/Units 06:52 BUN 3 L (7-17) mg/dL Creatinine 0.50 L (0.52-1.04) mg/dL Total Protein 6.0 L (6.3-8.2) g/dL Assessment and Plan Plan: #1 acute diverticulitis, with possible small abscess patient is admitted to medical floor, she was started on IV antibiotic Levaquin and Flagyl, surgical consultation was requested. Will advance diet to full liquid diet #2 acute gout exacerbation, patient is maintained on colchicine will continue, will check uric acid level #3 underlying history of hypothyroidism, status post partial thyroidectomy for adenoma, continue with Synthroid 137 g daily #4 underlying history of hypertension continue current medications #5 underlying history of depression maintained on Lexapro and bupropion will continue Medication and labs were reviewed, computed tomography scan reviewed Lovenox 40 mg subcu daily for DVT prophylaxis continue with omeprazole 40 mg by mouth daily for GI prophylaxis Will advance diet to regular diet will recheck labs in a.m.
[2018-03-03] MEDS: ZOLPIDEM 5 MG TAB PO PRN (23:37)
[2018-03-04] MEDS: metroNIDAZOLE-NS PMX 500 MG in SALINE 1 100ML.BAG IVPB SCH ×2 (03:51→11:35)
[2018-03-04 05:56] VITALS: BP 128/72; PULSE 75; RESP 16
[2018-03-04] MEDS: amLODIPine 10 MG TAB PO SCH (08:08)
[2018-03-04] MEDS: buPROPion XL 300 MG TAB.ER.24H PO SCH (08:08)
[2018-03-04] MEDS: PANTOPRAZOLE 40 MG TABLET PO SCH (08:08)
[2018-03-04] MEDS: ESCITALOPRAM 20 MG TAB PO SCH (08:08)
[2018-03-04] MEDS: LISINOPRIL 10 MG TAB PO SCH (08:08)
[2018-03-04] MEDS: ENOXAPARIN 40 MG/0.4 ML SYRINGE SQ SCH ×2 (08:08→08:10)
[2018-03-04] MEDS: LEVOTHYROXINE 137 MCG TAB PO SCH (08:08)
[2018-03-04] MEDS: KETOROLAC 30 MG/ML 1 ML VIAL IVP PRN (08:22)
[2018-03-04 08:37] VITALS: TEMP 98
[2018-03-04] MEDS: LEVOFLOXACIN 500MG-D5W PMX 500 MG in DEXTROSE/WATER 1 100ML.BAG IVPB SCH (08:45)
[2018-03-04 09:09] LABS: Basophils % (A) 1 %; Eosinophils # (A) 0.1 k/uL (0-0.7); Eosinophils % (A) 4 %; HCT 38.6 % (34.0-46.0); HGB 12.4 gm/dL (11.4-16.0); Lymphocytes # (A) 1.1 k/uL (1.0-4.8); Lymphocytes % (A) 34 %; MCH 28.2 pg (25.0-35.0); MCHC 32.2 g/dL (31.0-37.0); MCV 87.6 fL (80.0-100.0); Mean Platelet Volume 7.4; Monocytes # (A) 0.2 k/uL (0-1.0); Monocytes % (A) 6 %; Neutrophils # (A) 1.7 k/uL (1.3-7.7); Neutrophils % (A) 53 %; Platelet Count 263 k/uL (150-450); RDW 12.8 % (11.5-15.5); WBC 3.1 k/uL (3.8-10.6)
[2018-03-04 09:23] LABS: Anion Gap 11 mmol/L; Blood Urea Nitrogen 6 mg/dL (7-17); Carbon Dioxide 29 mmol/L (22-30); Chloride 103 mmol/L (98-107); Glucose 120 mg/dL (74-99); Potassium 4.7 mmol/L (3.5-5.1); Sodium 143 mmol/L (137-145)
[2018-03-04 09:24] LABS: Calcium 9.3 mg/dL (8.4-10.2)
--- NOTE | 2018-03-04 11:03 | P.PN ---
Subjective Progress Note Date: 03/04/18 62-year-old female seen and examined at bedside reports that she ate this morning after eating developed tenderness left lower quadrant palpitation left anterior abdominal wall patient states feels tender. Reports of nausea vomiting. Patient states she's anxious to be discharged home. The white count this morning 3.1 electrolytes within normal limits Objective - Vital Signs Vital signs: Vital Signs Temp 98 F 03/04/18 05:30 Pulse 75 03/04/18 05:30 Resp 16 03/04/18 05:30 BP 128/72 03/04/18 05:30 Pulse Ox 95 03/04/18 05:30 Intake & Output 03/03/18 03/04/18 03/04/18 18:59 06:59 18:59 Intake Total 500 780 Balance 500 780 Weight 80.739 kg Intake: Intake, IV Titration 500 Amount Sodium Chloride 0.9% 1, 500 000 ml @ 125 mls/hr IV . Q8H [facility] Rx#:[id number] Oral 780 Other: # Voids 2 # Bowel Movements 1 - Exam Physical exam 61-year-old female sitting up in bed appears in no acute distress Lungs adequate air movement bilaterally no shortness of breath Heart S1-S2 audible regular Abdomen mild tenderness to the left lower quadrant not distended bowel tones present no nausea no vomiting tolerating a diet Extremities no edema noted - Labs CBC & Chem 7: 03/04/18 08:47 03/04/18 08:47 Labs: Abnormal Lab Results - Last 24 Hours (Table) 03/04/18 03/04/18 Range/Units 08:47 08:47 WBC 3.1 L (3.8-10.6) k/uL BUN 6 L (7-17) mg/dL Glucose 120 H (74-99) mg/dL Assessment and Plan Assessment: Impression Present on admission left lower quadrant abdominal pain suspect due to acute diverticulitis Computed tomography scan of abdomen and pelvis show evidence of an acute diverticulitis possible small abscess History of a liver abscess treated with IV antibiotics 2 years prior Depressive disorder History of irritable bowel syndrome History of prior acute diverticulitis exacerbations requiring admission with IV antibiotic Plan Continue antibiotic Levaquin and Flagyl as ordered pain control DVT and GI prophylaxis Okay to be discharged home with follow-up outpatient setting with Home meds as appropriate note dictated for The above impression and plan of care have been discussed and directed by signing physician. Kamla Gregory nurse practitioner acting as scribe for signing physician.
--- NOTE | 2018-03-04 12:05 | P.DS ---
Providers Date of admission: 03/01/18 12:17 Expected date of discharge: 03/04/18 Attending physician: Sudeep Campos Consults: 03/01/18 12:55 Consult Physician Routine Consulting Provider: Saul Haney Consult Reason/Comments: Diverticulitis Do you want consulting provider notified?: Yes Primary care physician: Kelly Nguyễn Hospital Course: Discharge diagnosis #1 acute diverticulitis, with possible small abscess patient is admitted to medical floor, she was started on IV antibiotic Levaquin and Flagyl, surgical consultation was requested. Discharge clearance from surgical services patient follow-up outpatient with Dr. Haney in 1 week. Patient will be discharged home on Levaquin and Flagyl by mouth for 10 days #2 acute gout exacerbation, patient is maintained on colchicine will continue. Uric acid level 5.6 #3 underlying history of hypothyroidism, status post partial thyroidectomy for adenoma, continue with Synthroid 137 g daily #4 underlying history of hypertension continue current medications #5 underlying history of depression maintained on Lexapro and bupropion will continue #6 leukocytosis. White blood cell count 3.1 this morning. Will order repeat labs in one week and be managed by primary care provider. Hospital Course Desi Wiseman is a 62 year old female patient of Dr Nguyễn, who presented to [facility] ER with a chief complaint of abdominal pain, patient stated that her pain started 3 weeks ago, she tried to stay on clear liquid diet and treat her symptoms on her own, however she started having worsening severe pain in the left lower quadrant she try to contact Dr. Nguyễn' s office, and then she decided to come to emergency room. She has known history of acute diverticulitis in the past with multiple exacerbations requiring prolonged courses of antibiotics, she denies ever having any abdominal surgery. She was evaluated in the emergency room computed tomography scan revealed evidence of acute diverticulitis with possible abscess formation she was started on IV antibiotics and admitted to medical floor surgical consultation was requested. On 03/02/2018 patient is alert and oriented 3 in no apparent distress she is still complaining of pain in the left lower quadrant but less severe than yesterday otherwise she denies any complaints there is no fever or chills no headache or dizziness no chest pain no shortness of breath no cough no nausea or vomiting no diarrhea and no urinary symptoms. 03/03/2018 patient is alert and oriented still complaining of pain and tenderness in the left lower quadrant otherwise she denies any complaints she is tolerating full liquid diet well there is no fever or chills no headache or dizziness no chest pain or shortness of breath no cough no vomiting no diarrhea and no urinary symptoms On 03/04/2018 patient is alert and oriented times x 3. Patient's anxious to go home. Patient did complain of some abdominal pain after eating this morning but states that it was mild and subsided quickly . Patient states that she is able to better manage her diet at home. Discussed case with surgical services. Patient has been cleared for discharge per surgical services. Be discharged home on antibiotics Levaquin and Flagyl for 10 days. Patient Condition at Discharge: Stable Plan - Discharge Summary Discharge Rx Participant: No New Discharge Prescriptions: New Levofloxacin [Levaquin] 500 mg PO DAILY 10 Days #10 tab metroNIDAZOLE [Flagyl] 500 mg PO TID 10 Days #30 tab Continue buPROPion HCL [Wellbutrin XL] 300 mg PO DAILY Levothyroxine Sodium [Synthroid] 137 mcg PO DAILY Ibuprofen [Advil] 200 mg PO Q6HR PRN PRN Reason: Pain Escitalopram [Lexapro] 20 mg PO DAILY Colchicine [Colcrys] 0.6 mg PO DAILY PRN PRN Reason: GOUT amLODIPine BESYLATE/BENAZEPRIL [Lotrel 5-10 mg Capsule] 1 cap PO DAILY Omeprazole 40 mg PO DAILY Discharge Medication List Colchicine [Colcrys] 0.6 mg PO DAILY PRN 03/01/18 [History] Escitalopram [Lexapro] 20 mg PO DAILY 03/01/18 [History] Ibuprofen [Advil] 200 mg PO Q6HR PRN 03/01/18 [History] Levothyroxine Sodium [Synthroid] 137 mcg PO DAILY 03/01/18 [History] Omeprazole 40 mg PO DAILY 03/01/18 [History] amLODIPine BESYLATE/BENAZEPRIL [Lotrel 5-10 mg Capsule] 1 cap PO DAILY 03/01/18 [History] buPROPion HCL [Wellbutrin XL] 300 mg PO DAILY 03/01/18 [History] Levofloxacin [Levaquin] 500 mg PO DAILY 10 Days #10 tab 03/04/18 [Rx] metroNIDAZOLE [Flagyl] 500 mg PO TID 10 Days #30 tab 03/04/18 [Rx] Follow up Appointment(s)/Referral(s): Kelly Nguyễn MD [Primary Care Provider] - 1-2 days Saul Haney MD [STAFF PHYSICIAN] - 1 Week
== END 2018-03-04 13:20 | disposition home or self-care (01) | DRG 392 ==
LOC: EC 09:56 → 5MS5E 12:17
PROVIDERS: ADMIT Internal Medicine; ATTEND Internal Medicine
DX: K57.20 Diverticulitis of large intestine with perforation and abscess without bleeding (principal); I10 Essential (primary) hypertension; M10.9 Gout, unspecified; E89.0 Postprocedural hypothyroidism; F32.9 Major depressive disorder, single episode, unspecified; E78.5 Hyperlipidemia, unspecified; K21.9 Gastro-esophageal reflux disease without esophagitis; K58.9 Irritable bowel syndrome, unspecified; Z79.899 Other long term (current) drug therapy; Z79.890 Hormone replacement therapy; Z91.018 Allergy to other foods; Z87.891 Personal history of nicotine dependence; Z82.49 Family history of ischemic heart disease and other diseases of the circulatory system; Z83.3 Family history of diabetes mellitus; Z98.890 Other specified postprocedural states; Z86.010 Personal history of colon polyps
CPT/HCPCS: 36415; 74177; 80048; 80053; 81003; 82150; 83690; 84550; 85025; 96361; 96374; 99285

== ENCOUNTER 2018-03-19 14:50 | Emergency (ER) | payer MEDICARE ==
[2018-03-19 14:54] VITALS: RESP 18
[2018-03-19] MEDS ORDERED: PROPARACAINE 0.5% OPHTH DROPS 15 ML BTL BOTH EYES STA (15:11)
--- NOTE | 2018-03-19 15:24 | ED ---
General Adult HPI - General Chief complaint: Eye Problems Stated complaint: Eye problem Time Seen by Provider: 03/19/18 14:58 Source: patient, RN notes reviewed, old records reviewed Mode of arrival: ambulatory Limitations: no limitations - History of Present Illness Initial comments: This is a 63-year-old female the ER for evaluation. Patient presents for evaluation regarding visual changes. Patient has history of contact lens wearing but no other medical history. Patient has of high blood pressure low blood pressures currently normal. Taking all medications as prescribed. No trauma. Patient states she was driving today and noticed floaters and flashes in her right eye. Symptoms prior to arrival. Patient states that the light and she tried to break and await his symptoms do not go away she comes ER now for evaluation - Related Data Home Medications Medication Instructions Recorded Confirmed Colchicine [Colcrys] 0.6 mg PO DAILY PRN 03/01/18 03/01/18 Escitalopram [Lexapro] 20 mg PO DAILY 03/01/18 03/01/18 Ibuprofen [Advil] 200 mg PO Q6HR PRN 03/01/18 03/01/18 Levothyroxine Sodium [Synthroid] 137 mcg PO DAILY 03/01/18 03/01/18 Omeprazole 40 mg PO DAILY 03/01/18 03/01/18 amLODIPine BESYLATE/BENAZEPRIL 1 cap PO DAILY 03/01/18 03/01/18 [Lotrel 5-10 mg Capsule] buPROPion HCL [Wellbutrin XL] 300 mg PO DAILY 03/01/18 03/01/18 Previous Rx's Medication Instructions Recorded Levofloxacin [Levaquin] 500 mg PO DAILY 10 Days #10 tab 03/04/18 metroNIDAZOLE [Flagyl] 500 mg PO TID 10 Days #30 tab 03/04/18 Allergies Allergy/AdvReac Type Severity Reaction Status Date / Time apple Allergy Unknown Verified 03/19/18 14:54 peach Allergy Unknown Verified 03/19/18 14:54 pear Allergy Unknown Verified 03/19/18 14:54 TREE FRUIT (NON-CITRUS) Allergy Unknown Uncoded 03/19/18 14:54 Review of Systems ROS Statement: Those systems with pertinent positive or pertinent negative responses have been documented in the HPI. ROS Other: All systems not noted in ROS Statement are negative. Past Medical History Past Medical History: GERD/Reflux, Hyperlipidemia, Hypertension, Thyroid Disorder Additional Past Medical History / Comment(s): IBS, diverticulitis, past liver abscess, R foot gout, hypothyroid History of Any Multi-Drug Resistant Organisms: None Reported Past Surgical History: Joint Replacement Additional Past Surgical History / Comment(s): Partial thyroidectomy for adenoma , EGD/colonoscopy with benign polypectomy, diagnostic laparoscopy-fallopian tubes "blocked", Past Anesthesia/Blood Transfusion Reactions: Postoperative Nausea & Vomiting ( PONV) Past Psychological History: Anxiety, Depression Smoking Status: Former smoker Past Alcohol Use History: Occasional Past Drug Use History: None Reported - Past Family History Father Family Medical History: Congestive Heart Failure (CHF), Coronary Artery Disease (CAD), Diabetes Mellitus Additional Family Medical History / Comment(s): Father at the age of 72 yrs. Mother Family Medical History: No Reported History Additional Family Medical History / Comment(s): Mother was healthy and lived to be 96 yrs old. General Exam - General Exam Comments Initial Comments: Bilateral pressures 16 and 14 respectively Limitations: no limitations General appearance: alert, in no apparent distress Head exam: Present: atraumatic, normocephalic, normal inspection Eye exam: Present: normal appearance, PERRL, EOMI. Absent: scleral icterus, conjunctival injection, periorbital swelling ENT exam: Present: normal exam, mucous membranes moist Neck exam: Present: normal inspection. Absent: tenderness, meningismus, lymphadenopathy Respiratory exam: Present: normal lung sounds bilaterally. Absent: respiratory distress, wheezes, rales, rhonchi, stridor Cardiovascular Exam: Present: regular rate, normal rhythm, normal heart sounds. Absent: systolic murmur, diastolic murmur, rubs, gallop, clicks GI/Abdominal exam: Present: soft, normal bowel sounds. Absent: distended, tenderness, guarding, rebound, rigid Extremities exam: Present: normal inspection, full ROM, normal capillary refill. Absent: tenderness, pedal edema, joint swelling, calf tenderness Back exam: Present: normal inspection Neurological exam: Present: alert, oriented X3, CN II-XII intact Psychiatric exam: Present: normal affect, normal mood Skin exam: Present: warm, dry, intact, normal color. Absent: rash Course Vital Signs 03/19/18 03/19/18 14:51 15:39 Temperature 99.3 F 99.1 F Pulse Rate 95 84 Respiratory 18 18 Rate Blood Pressure 127/64 110/59 O2 Sat by Pulse 97 95 Oximetry - Reevaluation(s) Reevaluation #1: Spoke with on-call ophthalmology will see patient in the office as soon as possible Medical Decision Making - Medical Decision Making 63 female the ER for evaluation, positive likely vitreous versus medical testing , patient will be sent to ophthalmology for evaluation Disposition Clinical Impression: Vitreous hemorrhage Disposition: HOME SELF-CARE Condition: Good Instructions: Visual Floaters (ED) Is patient prescribed a controlled substance at d/c from ED?: No Referrals: Kenia Shelton MD [STAFF PHYSICIAN] - 1-2 days
[2018-03-19 15:40] VITALS: BP 110/59; PULSE 84; TEMP 99.1
== END 2018-03-19 15:39 | disposition home or self-care (01) ==
LOC: EC 14:50
DX: H43.11 Vitreous hemorrhage, right eye (principal); K21.9 Gastro-esophageal reflux disease without esophagitis; I10 Essential (primary) hypertension; M10.9 Gout, unspecified; E03.9 Hypothyroidism, unspecified; F41.9 Anxiety disorder, unspecified; F32.9 Major depressive disorder, single episode, unspecified; Z87.891 Personal history of nicotine dependence; Z90.89 Acquired absence of other organs; Z79.899 Other long term (current) drug therapy; Z91.018 Allergy to other foods
CPT/HCPCS: 99283

== ENCOUNTER → 2018-04-10 | Outpatient (CLI) | payer MEDICARE ==
--- NOTE | 2018-04-17 11:23 | MM ---
Reason for exam: screening (asymptomatic). History: Patient is postmenopausal. Family history of breast cancer in sister at age 46. Physical Findings: A clinical breast exam by your physician is recommended on an annual basis and results should be correlated with mammographic findings. MG 3D Screening Mammo W/Cad Bilateral CC and MLO view(s) were taken. The breast tissue is heterogeneously dense. This may lower the sensitivity of mammography. There is chronic nodularity in the left breast. No significant changes when compared with prior studies. ASSESSMENT: Benign, BI-RAD 2 RECOMMENDATION: Routine screening mammogram of both breasts in 1 year.
== END | disposition home or self-care (01) ==
LOC: RADMAMWWP 09:39
PROVIDERS: ATTEND Family Medicine
DX: Z12.31 Encounter for screening mammogram for malignant neoplasm of breast (principal)
CPT/HCPCS: 77063; 77067

== ENCOUNTER 2018-04-16 06:17 | Day surgery (SDC) | payer MEDICARE ==
[2018-04-12 12:17] VITALS: BMI 28.3
[~2018-04-16 06:17] MED LIST: LACTATED RINGERS 1,000 ML IV SCH; LIDOCAINE 1% 20 ML VIAL (10MG/ML) FOR IV START INTRADERMA PRN; MIDAZOLAM 2 MG/2 ML VIAL IV PRN
[2018-04-16 06:43] VITALS: TEMP 99
[2018-04-16] MEDS ORDERED: LACTATED RINGERS 1,000 ML IV ONE ×2 (06:52)
--- NOTE | 2018-04-16 07:18 | P.GSHP ---
History of Present Illness H&P Date: 04/16/18 Chief Complaint: Diverticulitis This is a 63-year-old female who presents today for colonoscopy. She's had issues with diverticulitis. Past Medical History Past Medical History: GERD/Reflux, Hyperlipidemia, Hypertension, Thyroid Disorder Additional Past Medical History / Comment(s): IBS, diverticulitis, past liver abscess, R foot gout, hypothyroid History of Any Multi-Drug Resistant Organisms: None Reported Past Surgical History: Joint Replacement Additional Past Surgical History / Comment(s): Partial thyroidectomy for adenoma , EGD/colonoscopy with benign polypectomy, diagnostic laparoscopy-fallopian tubes "blocked",rt rotator cuff repair Past Anesthesia/Blood Transfusion Reactions: Postoperative Nausea & Vomiting ( PONV) Smoking Status: Former smoker - Past Family History Father Family Medical History: Congestive Heart Failure (CHF), Coronary Artery Disease (CAD), Diabetes Mellitus Additional Family Medical History / Comment(s): Father at the age of 72 yrs. Mother Family Medical History: No Reported History Additional Family Medical History / Comment(s): Mother was healthy and lived to be 96 yrs old. Sister(s) Family Medical History: Cancer Additional Family Medical History / Comment(s): 1-sister breast cancer, 1- sister "bleeding disorder" Medications and Allergies Home Medications Medication Instructions Recorded Confirmed Type Colchicine [Colcrys] 0.6 mg PO DAILY PRN 03/01/18 04/12/18 History Escitalopram [Lexapro] 20 mg PO DAILY 03/01/18 04/12/18 History Ibuprofen [Advil] 200 mg PO Q6HR PRN 03/01/18 04/12/18 History Levothyroxine Sodium [Synthroid] 137 mcg PO DAILY 03/01/18 04/12/18 History Omeprazole 40 mg PO DAILY 03/01/18 04/12/18 History buPROPion HCL [Wellbutrin XL] 300 mg PO DAILY 03/01/18 04/12/18 History Temazepam [Restoril] 7.5 mg PO HS 04/12/18 04/12/18 History amLODIPine BESYLATE/BENAZEPRIL 1 cap PO DAILY 04/12/18 04/12/18 History [Lotrel 5-10 mg Capsule] Allergies Allergy/AdvReac Type Severity Reaction Status Date / Time apple Allergy Unknown Verified 04/12/18 11:13 peach Allergy Unknown Verified 04/12/18 11:13 pear Allergy Unknown Verified 04/12/18 11:13 TREE FRUIT (NON-CITRUS) Allergy Unknown Uncoded 04/12/18 11:13 Surgical - Exam Vital Signs Temp Pulse Resp BP Pulse Ox 99.0 F 92 18 147/82 97 04/16/18 06:42 04/16/18 06:42 04/16/18 06:42 04/16/18 06:42 04/16/18 06:42 - General well developed, no distress - Eyes PERRL - ENT normal pinna - Neck no masses - Respiratory normal expansion - Cardiovascular Rhythm: regular - Abdomen Abdomen: soft, non tender Assessment and Plan Assessment: Diverticulitis. We'll perform colonoscopy.
--- NOTE | 2018-04-16 07:27 | P.OP ---
Date of Procedure: 04/16/18 Preoperative Diagnosis: Diverticulitis Postoperative Diagnosis: Diverticulitis Procedure(s) Performed: Colonoscopy Anesthesia: CÉSAR CHANCE Surgeon: Saul Haney Pathology: none sent Condition: stable Disposition: PACU Description of Procedure: The patient's placed on the operating table in the lateral position. She received IV sedation. Digital rectal exam was performed which revealed no abnormalities. Flexible colonoscope was then placed patient anus and passed throughout the colon. The sigmoid colon appeared quite inflamed. The scope was not passed beyond the sigmoid colon secondary to inflammation. The scope was then withdrawn. The rectum appeared normal. Scope was withdrawn for patient.
[2018-04-16] MEDS ORDERED: PROPOFOL 10 MG/ML 20 ML VIAL IV ONE (07:48)
[2018-04-16] MEDS ORDERED: MIDAZOLAM 2 MG/2 ML VIAL ONE (07:48)
[2018-04-16] MEDS ORDERED: LIDOCAINE 1% INJ 10MG/ML (20 ML MDV) ONE (07:48)
[2018-04-16 07:52] VITALS: BP 127/77; PULSE 77; RESP 18
[2018-04-16 09:07] LABS: ALT 28 U/L (9-52); AST 22 U/L (14-36); Alkaline Phosphatase 63 U/L (38-126); Anion Gap 8 mmol/L; Blood Urea Nitrogen 6 mg/dL (7-17); Calcium 9.7 mg/dL (8.4-10.2); Carbon Dioxide 29 mmol/L (22-30); Chloride 104 mmol/L (98-107); Glucose 109 mg/dL (74-99); Potassium 4.2 mmol/L (3.5-5.1); Sodium 141 mmol/L (137-145); Total Bilirubin 0.5 mg/dL (0.2-1.3); Total Protein 6.9 g/dL (6.3-8.2)
[2018-04-16 09:09] LABS: HCT 41.3 % (34.0-46.0); HGB 12.5 gm/dL (11.4-16.0); Hypochromasia Slight; MCH 26.6 pg (25.0-35.0); MCHC 30.4 g/dL (31.0-37.0); MCV 87.7 fL (80.0-100.0); Mean Platelet Volume 7.4; Platelet Count 277 k/uL (150-450); RDW 13.9 % (11.5-15.5); WBC 7.7 k/uL (3.8-10.6)
== END 2018-04-16 08:34 | disposition home or self-care (01) ==
LOC: ORWHC2ENDO 06:17
PROVIDERS: ATTEND Surgery
DX: K57.32 Diverticulitis of large intestine without perforation or abscess without bleeding (principal); K58.9 Irritable bowel syndrome, unspecified; K21.9 Gastro-esophageal reflux disease without esophagitis; E78.5 Hyperlipidemia, unspecified; I10 Essential (primary) hypertension; E07.9 Disorder of thyroid, unspecified; M10.9 Gout, unspecified; E03.9 Hypothyroidism, unspecified; F32.9 Major depressive disorder, single episode, unspecified; Z87.891 Personal history of nicotine dependence; Z79.890 Hormone replacement therapy; Z79.899 Other long term (current) drug therapy; Z91.018 Allergy to other foods
CPT/HCPCS: 80053; 85027; 45330; J2250; J2001; J2704

== ENCOUNTER 2018-04-17 07:30 | Inpatient (IN) | payer MEDICARE ==
[2018-04-12 11:30] VITALS: BMI 28.3
[~2018-04-17 07:30] MED LIST changes: +DEXAMETHASONE SOD PHOSPHATE 10 MG/ML 1 ML VIAL IV ONE; -LACTATED RINGERS 1,000 ML IV SCH; -MIDAZOLAM 2 MG/2 ML VIAL IV PRN; +ceFAZolin IN SWFI 2 GM/20 ML SYRINGE IVP ONE; +metroNIDAZOLE-NS PMX 500 MG in SALINE 1 100ML.BAG IVPB ONE
--- NOTE | 2018-04-17 13:32 | P.GSHP ---
History of Present Illness H&P Date: 04/17/18 Chief Complaint: Diverticulitis This is a 63-year-old female who's had a chronic history of diverticulitis. Patient resents today for low anterior resection. Patient with risks of surgery including wound infection, bleeding and possible colostomy. Past Medical History Past Medical History: GERD/Reflux, Hyperlipidemia, Hypertension, Thyroid Disorder Additional Past Medical History / Comment(s): IBS, diverticulitis, past liver abscess, R foot gout, hypothyroid History of Any Multi-Drug Resistant Organisms: None Reported Past Surgical History: Joint Replacement Additional Past Surgical History / Comment(s): Partial thyroidectomy for adenoma , EGD/colonoscopy with benign polypectomy, diagnostic laparoscopy-fallopian tubes "blocked",rt rotator cuff repair Past Anesthesia/Blood Transfusion Reactions: Postoperative Nausea & Vomiting ( PONV) Smoking Status: Former smoker - Past Family History Father Family Medical History: Congestive Heart Failure (CHF), Coronary Artery Disease (CAD), Diabetes Mellitus Additional Family Medical History / Comment(s): Father at the age of 72 yrs. Mother Family Medical History: No Reported History Additional Family Medical History / Comment(s): Mother was healthy and lived to be 96 yrs old. Sister(s) Family Medical History: Cancer Additional Family Medical History / Comment(s): 1-sister breast cancer, 1- sister "bleeding disorder" Medications and Allergies Home Medications Medication Instructions Recorded Confirmed Type Colchicine [Colcrys] 0.6 mg PO DAILY PRN 03/01/18 04/12/18 History Escitalopram [Lexapro] 20 mg PO DAILY 03/01/18 04/12/18 History Ibuprofen [Advil] 200 mg PO Q6HR PRN 03/01/18 04/12/18 History Levothyroxine Sodium [Synthroid] 137 mcg PO DAILY 03/01/18 04/12/18 History Omeprazole 40 mg PO DAILY 03/01/18 04/12/18 History buPROPion HCL [Wellbutrin XL] 300 mg PO DAILY 03/01/18 04/12/18 History Temazepam [Restoril] 7.5 mg PO HS 04/12/18 04/12/18 History amLODIPine BESYLATE/BENAZEPRIL 1 cap PO DAILY 04/12/18 04/12/18 History [Lotrel 5-10 mg Capsule] Allergies Allergy/AdvReac Type Severity Reaction Status Date / Time apple Allergy Unknown Verified 04/17/18 13:32 peach Allergy Unknown Verified 04/17/18 13:32 pear Allergy Unknown Verified 04/17/18 13:32 TREE FRUIT (NON-CITRUS) Allergy Unknown Uncoded 04/17/18 13:32 Surgical - Exam - General well developed, well nourished, no distress - Eyes PERRL - ENT normal pinna - Neck no masses - Respiratory normal expansion - Cardiovascular Rhythm: regular - Abdomen Abdomen: soft, non tender Assessment and Plan Assessment: Diverticulitis. We'll perform low anterior resection.
[2018-04-17] MEDS: LACTATED RINGERS 1,000 ML IV SCH ×3 (13:50→17:43)
[2018-04-17] MEDS: fentaNYL (PF) 50 MCG/ML 2 ML AMP IV PRN ×2 (13:54→13:56)
[2018-04-17] MEDS: MIDAZOLAM 2 MG/2 ML VIAL IV PRN ×2 (13:54→13:56)
[2018-04-17] MEDS ORDERED: NALOXONE 0.4 MG/ML 1 ML VIAL IV PRN (14:03)
[2018-04-17] MEDS: ONDANSETRON 4 MG/2 ML VIAL IVP ONE ×2 (14:06→17:43)
[2018-04-17] MEDS: HEPARIN SODIUM,PORCINE 5,000 UNIT/ML 1 ML VIAL SQ ONE ×2 (14:07→17:42)
[2018-04-17] MEDS ORDERED: fentaNYL (PF) 50 MCG/ML 2 ML AMP ONE (14:26)
[2018-04-17] MEDS ORDERED: MIDAZOLAM 2 MG/2 ML VIAL ONE (14:26)
[2018-04-17] MEDS ORDERED: ROCURONIUM BROMIDE 10 MG/ML 10 ML VIAL IV ONE (14:26)
[2018-04-17] MEDS ORDERED: ePHEDrine SULFATE/0.9% NACL/PF 50 MG/5 ML SYRINGE IV ONE (14:26)
[2018-04-17] MEDS ORDERED: GLYCOPYRROLATE 0.2 MG/ML 2 ML VIAL ONE (14:26)
[2018-04-17] MEDS ORDERED: NEOSTIGMINE 1 MG/ML 10 ML VIAL ONE (14:26)
[2018-04-17] MEDS ORDERED: PROPOFOL 10 MG/ML 20 ML VIAL IV ONE (14:26)
[2018-04-17] MEDS ORDERED: SUCCINYLCHOLINE CHLORIDE 100 MG/5 ML SYR IV ONE (14:26)
[2018-04-17] MEDS ORDERED: LIDOCAINE 1% INJ 10MG/ML (20 ML MDV) ONE (14:26)
[2018-04-17] MEDS ORDERED: LACTATED RINGERS 1,000 ML IV ONE (15:54)
[2018-04-17] MEDS ORDERED: METOCLOPRAMIDE 5 MG/ML 2 ML VIAL IVP PRN (15:59)
[2018-04-17] MEDS ORDERED: ONDANSETRON 4 MG/2 ML VIAL IVP PRN (15:59)
--- NOTE | 2018-04-17 16:06 | P.OP ---
Date of Procedure: 04/17/18 Preoperative Diagnosis: Diverticulitis Postoperative Diagnosis: Diverticulitis Sigmoid colon mass Procedure(s) Performed: Low anterior resection Anesthesia: MERON Surgeon: Saul Haney Estimated Blood Loss (ml): 150 Pathology: other (Sigmoid colon) Condition: stable Disposition: PACU Description of Procedure: DESCRIPTION OF PROCEDURE: The patient was placed on the operating table in the supine position. Patient received a general anesthesia. Patient was then placed in the dorsal lithotomy position. The patients abdomen was prepped and draped in the usual sterile fashion. Through a low midline incision, the abdomen was entered. The Candelario retractor was placed in the wound. The stomach appeared normal. The small bowel appeared normal. The liver appeared normal. The right colon and transverse colon appeared normal. On the left colon, there was an extensive diverticulosis noted. The distal sigmoid appeared to have a mass. The sigmoid colon was then mobilized by dividing the white line of Toldt with electrocautery. At this point, the proximal sigmoid colon was transected with a GI stapler after a window had been made in the mesentery. The distal sigmoid colon was then dissected. Mesentery was taken down between Connie clamps and ligated with #0 silk ties and the Enseal device. At a point beyond the lesion, the bowel was then transected with a Proximate stapler. This was then removed. The splenic flexure was then taken down in order to provide adequate lengthening of the sigmoid colon. At this point, the auto purse-string suture device was placed across the proximal colon and fired. The colon was then opened. The 29 mm EEA anvil was then placed into the colon and then the purse-string was secured. The EEA stapler device was then placed in the patients anus and passed into the rectum. The nail for the EEA was then brought out through the distal rectum and then attached to the anvil. The EEA stapler device was then fired. The anastomosis was inspected. There were 2 good donuts of tissue removed from the EEA stapler. The anastomosis was then tested under water and there was no air leak seen. At this point the abdomen was then irrigated. There was no bleeding seen. The fascia was then closed with double stranded #1 PDS. The skin was closed with travon. The patient tolerated the procedure well.
[2018-04-17] MEDS: ROPIVACAINE 250 MG, HYDROMORPHONE (PF) 5 MG in SODIUM CHLORIDE 0.9% 200 ML EPIDURAL PRN ×2 (16:14→16:49)
[2018-04-17 16:58] LABS: Basophils % (A) 0 %; Eosinophils % (A) 0 %; HCT 40.7 % (34.0-46.0); HGB 12.3 gm/dL (11.4-16.0); Hypochromasia Moderate; Lymphocytes # (A) 0.7 k/uL (1.0-4.8); Lymphocytes % (A) 8 %; MCH 26.2 pg (25.0-35.0); MCHC 30.1 g/dL (31.0-37.0); MCV 87.2 fL (80.0-100.0); Mean Platelet Volume 7.1; Monocytes # (A) 0.2 k/uL (0-1.0); Monocytes % (A) 2 %; Neutrophils # (A) 7.5 k/uL (1.3-7.7); Neutrophils % (A) 89 %; Platelet Count 246 k/uL (150-450); RBC 4.67 m/uL (3.80-5.40); RDW 13.6 % (11.5-15.5); WBC 8.5 k/uL (3.8-10.6)
[2018-04-17 17:07] LABS: Anion Gap 7 mmol/L; Blood Urea Nitrogen 8 mg/dL (7-17); Carbon Dioxide 26 mmol/L (22-30); Chloride 105 mmol/L (98-107); Glucose 119 mg/dL (74-99); Potassium 3.9 mmol/L (3.5-5.1); Sodium 138 mmol/L (137-145)
[2018-04-17] MEDS: HEPARIN SODIUM,PORCINE 5,000 UNIT/ML 1 ML VIAL SQ SCH ×2 (17:43→23:24)
[2018-04-17] MEDS: diphenhydrAMINE 50 MG/ML 1 ML VIAL IVP PRN (19:30)
[2018-04-17] MEDS: PANTOPRAZOLE 40 MG/10 ML VIAL IVP SCH (20:18)
[2018-04-17] MEDS: D5-0.45% NACL WITH KCL 20MEQ/L 1,000 ML IV SCH ×2 (20:21→23:22)
[2018-04-17] MEDS ORDERED: TEMAZEPAM 7.5 MG CAP PO SCH (21:00)
[2018-04-17] MEDS: ALVIMOPAN 12 MG CAPSULE PO SCH (21:15)
[2018-04-17] MEDS: TEMAZEPAM 7.5 MG CAP PO SCH (21:16)
[2018-04-17] MEDS: FAMOTIDINE 20 MG/2 ML VIAL IV SCH (21:16)
[2018-04-18] MEDS: diphenhydrAMINE 50 MG/ML 1 ML VIAL IVP PRN ×3 (00:40→19:37)
[2018-04-18 06:06] LABS: Glucose,Whole Blood 129 mg/dL (75-99)
--- NOTE | 2018-04-18 08:16 | P.PN ---
Progress Note - Text Date: 04/18/2018 Time: 07:04 The patient is status post, low anterior resection, postoperative day number 1 The patient has no complaints of nausea vomiting or headache. The patient does not complain of any lower extremity numbness or weakness. The epidural is running at 8 mL per hour. VAS 0-10 The epidural will be maintained and adjusted as needed.
[2018-04-18] MEDS: FAMOTIDINE 20 MG/2 ML VIAL IV SCH ×2 (09:06→20:45)
[2018-04-18] MEDS: HEPARIN SODIUM,PORCINE 5,000 UNIT/ML 1 ML VIAL SQ SCH ×3 (09:06→23:43)
[2018-04-18] MEDS: PANTOPRAZOLE 40 MG/10 ML VIAL IVP SCH (09:06)
[2018-04-18] MEDS: D5-0.45% NACL WITH KCL 20MEQ/L 1,000 ML IV SCH ×3 (09:07→23:34)
[2018-04-18] MEDS: ALVIMOPAN 12 MG CAPSULE PO SCH ×2 (09:07→20:45)
[2018-04-18] MEDS: LACTATED RINGERS 1,000 ML IV SCH (09:09)
[2018-04-18] MEDS ORDERED: COLCHICINE 0.6 MG EACH PO PRN (11:02)
[2018-04-18] MEDS: LEVOTHYROXINE 137 MCG TAB PO SCH (12:06)
[2018-04-18] MEDS: ESCITALOPRAM 20 MG TAB PO SCH (12:10)
[2018-04-18] MEDS: buPROPion XL 300 MG TAB.ER.24H PO SCH (12:10)
--- NOTE | 2018-04-18 12:46 | P.CONS ---
History of Present Illness - Reason for Consult Consult date: 04/18/18 Medical management Requesting physician: Saul Haney - Chief Complaint Status post lower anterior resection - History of Present Illness This is a 63-year-old female, patient of Dr. Nguyễn. She has a known past medical history of recurrent diverticulitis, irritable bowel syndrome, GERD, hyperlipidemia, hypertension and hypothyroidism. She also had a history of a liver abscess that required treatment with antibiotics. Patient resented to the hospital for lower anterior resection. She was admitted to the surgical service. We've been consulted for medical management. Yesterday patient underwent a lower anterior resection for diverticulitis and a sigmoid colon mass. Estimated blood loss 150 mL. Patient has epidural in place and Holland catheter. She denies any abdominal pain. Denies any nausea or vomiting. She denies any chest pain or shortness of breath. Denies any fever chills or sweats. She has not passed gas or had bowel movement yet. She has belched. Patient did have some hypotension earlier yesterday. Blood pressure has shown improvement. We'll restart home blood pressure medications. Review of Systems Please refer to HPI otherwise unremarkable Past Medical History Past Medical History: GERD/Reflux, Hyperlipidemia, Hypertension, Thyroid Disorder Additional Past Medical History / Comment(s): IBS, diverticulitis, past liver abscess, R foot gout, hypothyroid History of Any Multi-Drug Resistant Organisms: None Reported Past Surgical History: Joint Replacement Additional Past Surgical History / Comment(s): Partial thyroidectomy for adenoma , EGD/colonoscopy with benign polypectomy, diagnostic laparoscopy-fallopian tubes "blocked",rt rotator cuff repair Past Anesthesia/Blood Transfusion Reactions: Postoperative Nausea & Vomiting ( PONV) Past Psychological History: Depression Additional Psychological History / Comment(s): Pt resides with her spouse. She states she is on a medication for her depression that works well. She is independent. She does use a cane when her gout is flared up. Smoking Status: Former smoker Past Alcohol Use History: Occasional Additional Past Alcohol Use History / Comment(s): Pt started smoking in 1970 < 1ppd and quit in 2002. Past Drug Use History: None Reported - Past Family History Father Family Medical History: Congestive Heart Failure (CHF), Coronary Artery Disease (CAD), Diabetes Mellitus Additional Family Medical History / Comment(s): Father at the age of 72 yrs. Mother Family Medical History: No Reported History Additional Family Medical History / Comment(s): Mother was healthy and lived to be 96 yrs old. Sister(s) Family Medical History: Cancer Additional Family Medical History / Comment(s): 1-sister breast cancer, 1- sister "bleeding disorder" Medications and Allergies Home Medications Medication Instructions Recorded Confirmed Type Colchicine [Colcrys] 0.6 mg PO DAILY PRN 03/01/18 04/17/18 History Escitalopram [Lexapro] 20 mg PO DAILY 03/01/18 04/17/18 History Ibuprofen [Advil] 200 mg PO Q6HR PRN 03/01/18 04/17/18 History Levothyroxine Sodium [Synthroid] 137 mcg PO DAILY 03/01/18 04/17/18 History Omeprazole 40 mg PO DAILY 03/01/18 04/17/18 History buPROPion HCL [Wellbutrin XL] 300 mg PO DAILY 03/01/18 04/17/18 History Temazepam [Restoril] 7.5 mg PO HS 04/12/18 04/17/18 History amLODIPine BESYLATE/BENAZEPRIL 1 cap PO DAILY 04/12/18 04/17/18 History [Lotrel 5-10 mg Capsule] Allergies Allergy/AdvReac Type Severity Reaction Status Date / Time apple Allergy Unknown Verified 04/17/18 16:32 peach Allergy Unknown Verified 04/17/18 16:32 pear Allergy Unknown Verified 04/17/18 16:32 TREE FRUIT (NON-CITRUS) Allergy Unknown Uncoded 04/17/18 13:32 Physical Exam Vitals: Vital Signs Temp Pulse Pulse Pulse Resp BP BP 04/18/18 08:50 16 04/18/18 08:47 98.1 F 72 16 128/67 04/18/18 00:34 98.3 F 79 16 106/66 04/17/18 19:00 88 101/64 04/17/18 18:45 83 86/58 04/17/18 18:30 81 95/58 04/17/18 18:15 82 99/54 04/17/18 18:00 88 108/54 04/17/18 17:53 90 16 04/17/18 17:45 81 99/64 04/17/18 17:30 87 95/53 04/17/18 17:15 83 103/56 04/17/18 17:00 98.3 F 83 16 106/67 04/17/18 16:38 90 16 113/60 04/17/18 16:23 83 16 117/57 04/17/18 16:08 97 F L 90 16 117/57 04/17/18 14:10 85 24 120/66 04/17/18 13:40 97.6 F 89 18 131/66 Pulse Ox 04/18/18 08:50 04/18/18 08:47 98 04/18/18 00:34 94 L 04/17/18 19:00 04/17/18 18:45 04/17/18 18:30 04/17/18 18:15 04/17/18 18:00 04/17/18 17:53 04/17/18 17:45 04/17/18 17:30 04/17/18 17:15 04/17/18 17:00 93 L 04/17/18 16:38 92 L 04/17/18 16:23 99 04/17/18 16:08 97 04/17/18 14:10 99 04/17/18 13:40 98 Intake and Output 04/17/18 04/18/18 04/18/18 22:59 06:59 14:59 Intake Total 930 1000 240 Output Total 450 600 Balance 480 400 240 Intake: IV 305 Intake, IV Titration 625 1000 Amount D5-0.45% NaCl with KCl 625 1000 20Meq/l 1,000 ml @ 125 mls/hr IV .Q8H [facility] Rx#: [id number] Oral 240 Output: Urine 100 600 Estimated Blood Loss 350 Other: Voiding Method Indwelling Catheter Indwelling Catheter Weight 77.111 kg Head normocephalic Neck supple Lungs clear to auscultation bilaterally no wheezing or crackles Heart regular rate and rhythm S1-S2, no rub or gallop Abdomen is soft nondistended dressing clean dry and intact. Hypoactive bowel sounds. Extremities no edema Neuro alert and orientated to 3 Results CBC & Chem 7: 04/17/18 16:42 04/17/18 16:42 Labs: Abnormal Lab Results - Last 24 Hours (Table) 04/17/18 04/17/18 04/18/18 Range/Units 16:42 16:42 05:47 MCHC 30.1 L (31.0-37.0) g/dL Lymphocytes # 0.7 L (1.0-4.8) k/uL Glucose 119 H (74-99) mg/dL POC Glucose (mg/dL) 129 H (75-99) mg/dL Assessment and Plan Assessment: 1. Status post lower anterior resection for diverticulitis and sigmoid colon mass. Surgery completed April 17 2018. 2. Essential hypertension: Patient did have some hypotension yesterday likely expected due to surgery and anesthesia. Blood pressures are improving. We will resume her Norvasc and lisinopril 3. Hypothyroidism continue her Synthroid 4. Generalized anxiety disorder continue Lexapro GI prophylaxis Pepcid and DVT prophylaxis subcu heparin Thank you for this consultation. We'll continue to follow along during patient' s hospitalization. We'll check routine labs tomorrow morning CBC and CMP Time with Patient: Greater than 30 (Greater than 60% of the total time spent in counseling and coordination of care.I performed an examination of the patient and discussed their management with the physician Rubbish Collection Supervisor. I have reviewed the Physician Rubbish Collection Supervisor's notes and agree with the documented findings and plan of care)
--- NOTE | 2018-04-18 12:48 | P.PN ---
Subjective Progress Note Date: 04/18/18 63-year-old female seen at the bedside this morning states pain medication effective for pain control epidural per anesthesiology service per protocol. Denying any numbness or tingling in the lower extremities Surgical dressing sites dry soft nondistended. Surgical tenderness appropriate indwelling Holland catheter in place tolerating liquid diet postop April 17 low anterior resection for diverticulitis Objective - Vital Signs Vital signs: Vital Signs Temp 98.1 F 04/18/18 08:47 Pulse 72 04/18/18 08:47 Resp 16 04/18/18 08:50 BP 128/67 04/18/18 08:47 Pulse Ox 98 04/18/18 08:47 Intake & Output 04/17/18 04/18/18 04/18/18 18:59 06:59 18:59 Intake Total 1305 1625 240 Output Total 450 600 Balance 855 1025 240 Weight 77.111 kg Intake: IV 1305 Intake, IV Titration 1625 Amount D5-0.45% NaCl with KCl 1625 20Meq/l 1,000 ml @ 125 mls/hr IV .Q8H [facility] Rx#: [id number] Oral 240 Output: Urine 100 600 Estimated Blood Loss 350 Other: Voiding Method Indwelling Catheter Indwelling Catheter Indwelling Catheter - Exam Physical exam 63-year-old female sitting up in bed appears in no acute distress Lungs adequate air movement bilaterally on room air sats 98% Heart S1-S2 audible regular Abdomen soft surgical tenderness appropriate distended. Hypoactive bowel tones surgical dressing dry indwelling Holland catheter in place tolerating liquid diet no nausea no vomiting Extremities Venodyne's on to the bilateral lower extremities - Labs CBC & Chem 7: 04/17/18 16:42 04/17/18 16:42 Labs: Abnormal Lab Results - Last 24 Hours (Table) 04/17/18 04/17/18 04/18/18 Range/Units 16:42 16:42 05:47 MCHC 30.1 L (31.0-37.0) g/dL Lymphocytes # 0.7 L (1.0-4.8) k/uL Glucose 119 H (74-99) mg/dL POC Glucose (mg/dL) 129 H (75-99) mg/dL Assessment and Plan Assessment: Impression Status post low anterior resection for a sigmoid colon mass diverticulitis done April 17 History of chronic diverticulitis Plan Continue postop surgical care Pain control Increase activity Keep indwelling Holland catheter until epidural for pain is removed per protocol Continue clear liquid diet DVT and GI prophylaxis The above impression and plan of care have been discussed and directed by signing physician. Kamla Gregory nurse practitioner acting as scribe for signing physician.
[2018-04-18] MEDS: ROPIVACAINE 250 MG, HYDROMORPHONE (PF) 5 MG in SODIUM CHLORIDE 0.9% 200 ML EPIDURAL PRN (13:50)
[2018-04-18] MEDS: HYDROmorphone 1 MG/ML 1 ML SYRINGE IM PRN (14:53)
[2018-04-18] MEDS: TEMAZEPAM 7.5 MG CAP PO SCH (20:45)
[2018-04-19] MEDS: HYDROmorphone 1 MG/ML 1 ML SYRINGE IM PRN ×2 (00:26→07:27)
[2018-04-19] MEDS: LEVOTHYROXINE 137 MCG TAB PO SCH (06:29)
[2018-04-19 09:00] LABS: Basophils % (A) 0 %; Eosinophils # (A) 0.1 k/uL (0-0.7); Eosinophils % (A) 2 %; HCT 36.6 % (34.0-46.0); Hypochromasia Moderate; Lymphocytes # (A) 1.7 k/uL (1.0-4.8); Lymphocytes % (A) 30 %; MCH 26.3 pg (25.0-35.0); MCV 87.5 fL (80.0-100.0); Mean Platelet Volume 7.3; Monocytes # (A) 0.4 k/uL (0-1.0); Monocytes % (A) 7 %; Neutrophils # (A) 3.5 k/uL (1.3-7.7); Neutrophils % (A) 60 %; Platelet Count 232 k/uL (150-450); RBC 4.18 m/uL (3.80-5.40); RDW 13.6 % (11.5-15.5); WBC 5.7 k/uL (3.8-10.6)
[2018-04-19 09:10] LABS: ALT 23 U/L (9-52); AST 21 U/L (14-36); Albumin 3.4 g/dL (3.5-5.0); Alkaline Phosphatase 48 U/L (38-126); Anion Gap 4 mmol/L; Blood Urea Nitrogen 4 mg/dL (7-17); Calcium 9.4 mg/dL (8.4-10.2); Carbon Dioxide 29 mmol/L (22-30); Chloride 107 mmol/L (98-107); Glucose 84 mg/dL (74-99); Potassium 4.9 mmol/L (3.5-5.1); Sodium 140 mmol/L (137-145); Total Bilirubin 0.3 mg/dL (0.2-1.3)
[2018-04-19] MEDS: PANTOPRAZOLE 40 MG/10 ML VIAL IVP SCH (09:12)
[2018-04-19] MEDS: ESCITALOPRAM 20 MG TAB PO SCH (09:12)
[2018-04-19] MEDS: HEPARIN SODIUM,PORCINE 5,000 UNIT/ML 1 ML VIAL SQ SCH ×3 (09:12→23:33)
[2018-04-19] MEDS: LISINOPRIL 10 MG TAB PO SCH (09:12)
[2018-04-19] MEDS: FAMOTIDINE 20 MG/2 ML VIAL IV SCH ×2 (09:12→21:00)
[2018-04-19] MEDS: ALVIMOPAN 12 MG CAPSULE PO SCH ×2 (09:12→21:00)
[2018-04-19] MEDS: buPROPion XL 300 MG TAB.ER.24H PO SCH (09:12)
[2018-04-19] MEDS: amLODIPine 5 MG TAB PO SCH (09:13)
[2018-04-19] MEDS: LACTATED RINGERS 1,000 ML IV SCH (09:25)
--- NOTE | 2018-04-19 09:28 | P.PN ---
Subjective Progress Note Date: 04/19/18 63-year-old female seen this morning sitting up in bed. Epidural in place per anesthesiologist for pain control. Indwelling Holland catheter in place. States passing gas no nausea vomiting tolerating clear liquid. Surgical dressing dry abdomen not distended. White count 5.7 postop April 17 low anterior resection for diverticulitis Objective - Vital Signs Vital signs: Vital Signs Temp 98.9 F 04/19/18 07:21 Pulse 82 04/19/18 07:21 Resp 16 04/19/18 07:21 BP 134/84 04/19/18 07:21 Pulse Ox 97 04/19/18 07:21 Intake & Output 04/18/18 04/19/18 04/19/18 18:59 06:59 18:59 Intake Total 240 1827 Output Total 650 2600 Balance -410 -773 Weight 77.111 kg Intake: Intake, IV Titration 1375 Amount D5-0.45% NaCl with KCl 1375 20Meq/l 1,000 ml @ 125 mls/hr IV .Q8H [facility] Rx#: [id number] Oral 240 452 Output: Urine 650 2600 Uretheral (Holland) 650 Other: Voiding Method Indwelling Catheter Indwelling Catheter - Exam Physical exam 63-year-old female sitting up in bed appears in no acute distress states has been up ambulating to the bathroom Lungs adequate air movement bilaterally on room air sats 98% Heart S1-S2 audible regular Abdomen soft surgical tenderness appropriate distended. Hypoactive bowel tones surgical dressing dry indwelling Holland catheter in place tolerating liquid diet no nausea no vomiting states passing gas no stool Extremities Venodyne's on to the bilateral lower extremities - Labs CBC & Chem 7: 04/19/18 08:28 04/19/18 08:28 Labs: Abnormal Lab Results - Last 24 Hours (Table) 04/19/18 04/19/18 Range/Units 08:28 08:28 Hgb 11.0 L (11.4-16.0) gm/dL MCHC 30.0 L (31.0-37.0) g/dL BUN 4 L (7-17) mg/dL Total Protein 6.0 L (6.3-8.2) g/dL Albumin 3.4 L (3.5-5.0) g/dL Assessment and Plan Assessment: Impression Status post low anterior resection for a sigmoid colon mass diverticulitis done April 17 History of chronic diverticulitis Plan Continue postop surgical care Pain control Increase activity Keep indwelling Holland catheter until epidural for pain is removed per protocol Continue clear liquid diet DVT and GI prophylaxis The above impression and plan of care have been discussed and directed by signing physician. Kamla Gregory nurse practitioner acting as scribe for signing physician.
[2018-04-19] MEDS: D5-0.45% NACL WITH KCL 20MEQ/L 1,000 ML IV SCH ×3 (10:36→19:27)
[2018-04-19] MEDS: HYDROcodone/APAP 5-325MG 1 EACH TAB PO PRN ×4 (10:36→23:33)
--- NOTE | 2018-04-19 11:43 | P.PN ---
Subjective Progress Note Date: 04/19/18 This is a 63-year-old female, patient of Dr. Nguyễn. She has a known past medical history of recurrent diverticulitis, irritable bowel syndrome, GERD, hyperlipidemia, hypertension and hypothyroidism. She also had a history of a liver abscess that required treatment with antibiotics. Patient resented to the hospital for lower anterior resection. She was admitted to the surgical service. We've been consulted for medical management. Yesterday patient underwent a lower anterior resection for diverticulitis and a sigmoid colon mass. Estimated blood loss 150 mL. Patient has epidural in place and Holland catheter. She denies any abdominal pain. Denies any nausea or vomiting. She denies any chest pain or shortness of breath. Denies any fever chills or sweats. She has not passed gas or had bowel movement yet. She has belched. Patient did have some hypotension earlier yesterday. Blood pressure has shown improvement. We'll restart home blood pressure medications. 04/19/2018 patient standing up in room. Reports pain is controlled. Apparently epidural may have been leaking last night. Epidural scheduled to be removed this morning and patient started on [place]. She is also scheduled to have the Holland catheter discontinued. Patient has not passed gas or had bowel movement yet. Has been started on a clear liquid diet per surgical service. Denies any chest pain or shortness of breath. Objective - Vital Signs Vital signs: Vital Signs Temp 98.9 F 04/19/18 07:21 Pulse 82 04/19/18 07:21 Resp 16 04/19/18 07:21 BP 134/84 04/19/18 07:21 Pulse Ox 97 04/19/18 07:21 Intake & Output 04/18/18 04/19/18 04/19/18 18:59 06:59 18:59 Intake Total 240 1827 Output Total 650 2600 Balance -410 -773 Weight 77.111 kg Intake: Intake, IV Titration 1375 Amount D5-0.45% NaCl with KCl 1375 20Meq/l 1,000 ml @ 125 mls/hr IV .Q8H [facility] Rx#: [id number] Oral 240 452 Output: Urine 650 2600 Uretheral (Holland) 650 Other: Voiding Method Indwelling Catheter Indwelling Catheter Indwelling Catheter - Exam Head normocephalic Neck supple Lungs few crackles at bases Heart regular rate and rhythm S1-S2, no rub or gallop Abdomen is soft nontender nondistended hypoactive positive bowel sounds no hepatosplenomegaly Extremities no edema Neuro alert and orientated to 3 - Labs CBC & Chem 7: 04/19/18 08:28 18 08:28 Labs: Abnormal Lab Results - Last 24 Hours (Table) 04/19/18 04/19/18 Range/Units 08:28 08:28 Hgb 11.0 L (11.4-16.0) gm/dL MCHC 30.0 L (31.0-37.0) g/dL BUN 4 L (7-17) mg/dL Total Protein 6.0 L (6.3-8.2) g/dL Albumin 3.4 L (3.5-5.0) g/dL Assessment and Plan Assessment: 1. Status post lower anterior resection for diverticulitis and sigmoid colon mass. Surgery completed April 17 2018. 2. Essential hypertension: Patient did have some hypotension yesterday likely expected due to surgery and anesthesia. Blood pressures improved. Continue the Norvasc and lisinopril 3. Hypothyroidism continue her Synthroid 4. Generalized anxiety disorder continue Lexapro GI prophylaxis Pepcid and DVT prophylaxis subcu heparin I performed an examination of the patient and discussed their management with the physician Furnace Packer. I have reviewed the Physician Furnace Packer's notes and agree with the documented findings and plan of care
[2018-04-19] MEDS: HYDROmorphone 1 MG/ML 1 ML SYRINGE IVP PRN (11:46)
[2018-04-19] MEDS: TEMAZEPAM 7.5 MG CAP PO SCH (21:00)
[2018-04-20] MEDS: HYDROcodone/APAP 5-325MG 1 EACH TAB PO PRN ×4 (03:26→23:52)
[2018-04-20] MEDS: LEVOTHYROXINE 137 MCG TAB PO SCH (05:28)
[2018-04-20 07:14] LABS: Basophils % (A) 0 %; Eosinophils # (A) 0.2 k/uL (0-0.7); Eosinophils % (A) 4 %; HCT 35.4 % (34.0-46.0); Hypochromasia Slight; Lymphocytes # (A) 1.3 k/uL (1.0-4.8); Lymphocytes % (A) 21 %; MCH 26.7 pg (25.0-35.0); MCV 86.4 fL (80.0-100.0); Monocytes # (A) 0.4 k/uL (0-1.0); Monocytes % (A) 7 %; Neutrophils # (A) 4.2 k/uL (1.3-7.7); Neutrophils % (A) 67 %; Platelet Count 224 k/uL (150-450); RDW 13.8 % (11.5-15.5); WBC 6.2 k/uL (3.8-10.6)
[2018-04-20 07:31] LABS: ALT 36 U/L (9-52); AST 31 U/L (14-36); Albumin 3.2 g/dL (3.5-5.0); Alkaline Phosphatase 61 U/L (38-126); Anion Gap 4 mmol/L; Blood Urea Nitrogen 2 mg/dL (7-17); Calcium 9.5 mg/dL (8.4-10.2); Carbon Dioxide 31 mmol/L (22-30); Chloride 108 mmol/L (98-107); Glucose 96 mg/dL (74-99); Potassium 4.9 mmol/L (3.5-5.1); Sodium 143 mmol/L (137-145); Total Bilirubin 0.3 mg/dL (0.2-1.3); Total Protein 5.8 g/dL (6.3-8.2)
[2018-04-20] MEDS: D5-0.45% NACL WITH KCL 20MEQ/L 1,000 ML IV SCH ×2 (09:06→21:54)
[2018-04-20] MEDS: amLODIPine 5 MG TAB PO SCH (09:11)
[2018-04-20] MEDS: ESCITALOPRAM 20 MG TAB PO SCH (09:11)
[2018-04-20] MEDS: buPROPion XL 300 MG TAB.ER.24H PO SCH (09:11)
[2018-04-20] MEDS: HEPARIN SODIUM,PORCINE 5,000 UNIT/ML 1 ML VIAL SQ SCH ×3 (09:11→23:51)
[2018-04-20] MEDS: ALVIMOPAN 12 MG CAPSULE PO SCH ×2 (09:11→20:56)
[2018-04-20] MEDS: FAMOTIDINE 20 MG/2 ML VIAL IV SCH ×2 (09:11→20:57)
[2018-04-20] MEDS: LISINOPRIL 10 MG TAB PO SCH (09:12)
[2018-04-20] MEDS: HYDROmorphone 1 MG/ML 1 ML SYRINGE IVP PRN ×2 (10:39→20:55)
[2018-04-20] MEDS: PANTOPRAZOLE 40 MG/10 ML VIAL IVP SCH (10:43)
--- NOTE | 2018-04-20 13:20 | P.PN ---
Subjective Progress Note Date: 04/20/18 The patient status post sigmoid colectomy for diverticulitis. Her is at bedside. She's not pass flatus. She reports some small bowel movements from the rectum without flatus. Her pain is controlled. Objective - Vital Signs Vital signs: Vital Signs Temp 98.9 F 04/20/18 07:31 Pulse 74 04/20/18 07:31 Resp 16 04/20/18 07:31 BP 138/79 04/20/18 07:31 Pulse Ox 95 04/20/18 07:31 Intake & Output 04/19/18 04/20/18 04/20/18 18:59 06:59 18:59 Intake Total 240 Balance 240 Weight 77.111 kg Intake: Oral 240 Other: Voiding Method Indwelling Catheter Toilet # Voids 3 3 1 # Bowel Movements 1 - Exam GENERAL: Well developed and in no acute distress. Pleasant. HEENT: No sclera icterus. Extraocular movements grossly intact. Moist buccal mucosa. Head is atraumatic, normocephalic. Hears conversational speech. No nasal drainage. NECK: Supple without lymphadenopathy. CHEST: Non-labored respirations and equal bilateral excursions. CARDIOVASCULAR: Regular rate and rhythm. Palpable 2+ radial pulses. ABDOMEN: Soft, nontender. Nondistended. Dressing clean dry and intact MUSCULOSKELETAL: No clubbing, cyanosis or edema. NEUROLOGIC: No focal or lateralizing signs. PSYCH: Appropriate affect. Alert and oriented to person, place and time. SKIN: Good skin turgor. Well perfused. - Labs CBC & Chem 7: 04/20/18 06:39 04/20/18 06:39 Labs: Abnormal Lab Results - Last 24 Hours (Table) 04/20/18 04/20/18 Range/Units 06:39 06:39 Hgb 11.0 L (11.4-16.0) gm/dL Chloride 108 H (98-107) mmol/L Carbon Dioxide 31 H (22-30) mmol/L BUN 2 L (7-17) mg/dL Total Protein 5.8 L (6.3-8.2) g/dL Albumin 3.2 L (3.5-5.0) g/dL Assessment and Plan (1) Diverticulitis Current Visit: Yes Status: Acute Code(s): K57.92 - DVTRCLI OF INTEST, PART UNSP, W/O PERF OR ABSCESS W/O BLEED SNOMED Code(s): 156664343 (2) S/P colon resection Current Visit: Yes Status: Acute Code(s): Z90.49 - ACQUIRED ABSENCE OF OTHER SPECIFIED PARTS OF DIGESTIVE TRACT SNOMED Code(s): 568593694 Plan: 1. Continue hospitalization. 2. Continue full liquid diet. 3. She was encouraged to use her incentive spirometer.
--- NOTE | 2018-04-20 14:58 | P.PN ---
Subjective Progress Note Date: 04/20/18 This is a 63-year-old female, patient of Dr. Nguyễn. She has a known past medical history of recurrent diverticulitis, irritable bowel syndrome, GERD, hyperlipidemia, hypertension and hypothyroidism. She also had a history of a liver abscess that required treatment with antibiotics. Patient resented to the hospital for lower anterior resection. She was admitted to the surgical service. We've been consulted for medical management. Yesterday patient underwent a lower anterior resection for diverticulitis and a sigmoid colon mass. Estimated blood loss 150 mL. Patient has epidural in place and Holland catheter. She denies any abdominal pain. Denies any nausea or vomiting. She denies any chest pain or shortness of breath. Denies any fever chills or sweats. She has not passed gas or had bowel movement yet. She has belched. Patient did have some hypotension earlier yesterday. Blood pressure has shown improvement. We'll restart home blood pressure medications. 04/19/2018 patient standing up in room. Reports pain is controlled. Apparently epidural may have been leaking last night. Epidural scheduled to be removed this morning and patient started on [place]. She is also scheduled to have the Holland catheter discontinued. Patient has not passed gas or had bowel movement yet. Has been started on a clear liquid diet per surgical service. Denies any chest pain or shortness of breath. On 04/20/2018 patient is alert and oriented 3 she is feeling better tolerating clear liquid diet well no nausea or vomiting, still having some abdominal pain, has been ambulating, has not passed any gas yet, there is no chest pain or shortness of breath and no urinary symptoms. Objective - Vital Signs Vital signs: Vital Signs Temp 98.9 F 04/20/18 07:31 Pulse 74 04/20/18 07:31 Resp 16 04/20/18 07:31 BP 138/79 04/20/18 07:31 Pulse Ox 95 04/20/18 07:31 Intake & Output 04/19/18 04/20/18 04/20/18 18:59 06:59 18:59 Intake Total 240 1000 Balance 240 1000 Weight 77.111 kg Intake: IV 1000 D5-0.45% NaCl with KCl 1000 20Meq/l 1,000 ml @ 125 mls/hr IV .Q8H [facility] Rx#: [id number] Oral 240 Other: Voiding Method Indwelling Catheter Toilet # Voids 3 3 4 # Bowel Movements 1 - Exam Head normocephalic and atraumatic Neck supple no JVD no goiter Lungs few crackles at bases no wheezing Heart regular rate and rhythm S1-S2, no rub or gallop Abdomen is soft nontender nondistended hypoactive positive bowel sounds no hepatosplenomegaly Extremities no edema no cyanosis or clubbing Neuro alert and orientated to 3 - Labs CBC & Chem 7: 04/20/18 06:39 04/20/18 06:39 Labs: Abnormal Lab Results - Last 24 Hours (Table) 04/20/18 04/20/18 Range/Units 06:39 06:39 Hgb 11.0 L (11.4-16.0) gm/dL Chloride 108 H (98-107) mmol/L Carbon Dioxide 31 H (22-30) mmol/L BUN 2 L (7-17) mg/dL Total Protein 5.8 L (6.3-8.2) g/dL Albumin 3.2 L (3.5-5.0) g/dL Assessment and Plan Plan: 1. Status post lower anterior resection for diverticulitis and sigmoid colon mass. Surgery completed April 17 2018. 2. Essential hypertension: Patient did have some hypotension yesterday likely expected due to surgery and anesthesia. Blood pressures improved. Continue the Norvasc and lisinopril 3. Hypothyroidism continue her Synthroid 4. Generalized anxiety disorder continue Lexapro GI prophylaxis Pepcid and DVT prophylaxis subcu heparin Continue current management recheck labs in
[2018-04-20] MEDS: LACTATED RINGERS 1,000 ML IV SCH (17:40)
[2018-04-20] MEDS: TEMAZEPAM 7.5 MG CAP PO SCH (20:57)
[2018-04-21] MEDS: D5-0.45% NACL WITH KCL 20MEQ/L 1,000 ML IV SCH ×4 (01:17→21:49)
[2018-04-21] MEDS: HYDROmorphone 1 MG/ML 1 ML SYRINGE IVP PRN ×2 (02:40→09:42)
[2018-04-21] MEDS: LEVOTHYROXINE 137 MCG TAB PO SCH (06:20)
[2018-04-21 06:42] LABS: Basophils % (A) 1 %; Eosinophils # (A) 0.3 k/uL (0-0.7); Eosinophils % (A) 4 %; HCT 39.7 % (34.0-46.0); HGB 12.4 gm/dL (11.4-16.0); Hypochromasia Slight; Lymphocytes # (A) 1.6 k/uL (1.0-4.8); Lymphocytes % (A) 22 %; MCH 26.8 pg (25.0-35.0); MCHC 31.3 g/dL (31.0-37.0); MCV 85.6 fL (80.0-100.0); Mean Platelet Volume 7.6; Monocytes # (A) 0.4 k/uL (0-1.0); Monocytes % (A) 5 %; Neutrophils % (A) 67 %; Platelet Count 270 k/uL (150-450); RBC 4.63 m/uL (3.80-5.40); RDW 13.8 % (11.5-15.5); WBC 7.4 k/uL (3.8-10.6)
[2018-04-21 06:55] LABS: ALT 42 U/L (9-52); AST 38 U/L (14-36); Albumin 3.8 g/dL (3.5-5.0); Alkaline Phosphatase 76 U/L (38-126); Anion Gap 9 mmol/L; Blood Urea Nitrogen 3 mg/dL (7-17); Carbon Dioxide 30 mmol/L (22-30); Chloride 100 mmol/L (98-107); Glucose 99 mg/dL (74-99); Potassium 5.3 mmol/L (3.5-5.1); Sodium 139 mmol/L (137-145); Total Bilirubin 0.4 mg/dL (0.2-1.3); Total Protein 6.6 g/dL (6.3-8.2)
[2018-04-21] MEDS: LISINOPRIL 10 MG TAB PO SCH (08:20)
[2018-04-21] MEDS: PANTOPRAZOLE 40 MG/10 ML VIAL IVP SCH (08:20)
[2018-04-21] MEDS: amLODIPine 5 MG TAB PO SCH (08:20)
[2018-04-21] MEDS: buPROPion XL 300 MG TAB.ER.24H PO SCH (08:20)
[2018-04-21] MEDS: ALVIMOPAN 12 MG CAPSULE PO SCH ×2 (08:20→21:47)
[2018-04-21] MEDS: ESCITALOPRAM 20 MG TAB PO SCH (08:20)
[2018-04-21] MEDS: HEPARIN SODIUM,PORCINE 5,000 UNIT/ML 1 ML VIAL SQ SCH ×2 (08:21→15:13)
[2018-04-21] MEDS: FAMOTIDINE 20 MG/2 ML VIAL IV SCH ×2 (08:21→21:48)
--- NOTE | 2018-04-21 11:44 | P.PN ---
Subjective Progress Note Date: 04/21/18 This is a 63-year-old female, patient of Dr. Nguyễn. She has a known past medical history of recurrent diverticulitis, irritable bowel syndrome, GERD, hyperlipidemia, hypertension and hypothyroidism. She also had a history of a liver abscess that required treatment with antibiotics. Patient resented to the hospital for lower anterior resection. She was admitted to the surgical service. We've been consulted for medical management. Yesterday patient underwent a lower anterior resection for diverticulitis and a sigmoid colon mass. Estimated blood loss 150 mL. Patient has epidural in place and Holland catheter. She denies any abdominal pain. Denies any nausea or vomiting. She denies any chest pain or shortness of breath. Denies any fever chills or sweats. She has not passed gas or had bowel movement yet. She has belched. Patient did have some hypotension earlier yesterday. Blood pressure has shown improvement. We'll restart home blood pressure medications. 04/19/2018 patient standing up in room. Reports pain is controlled. Apparently epidural may have been leaking last night. Epidural scheduled to be removed this morning and patient started on [place]. She is also scheduled to have the Holland catheter discontinued. Patient has not passed gas or had bowel movement yet. Has been started on a clear liquid diet per surgical service. Denies any chest pain or shortness of breath. On 04/20/2018 patient is alert and oriented 3 she is feeling better tolerating clear liquid diet well no nausea or vomiting, still having some abdominal pain, has been ambulating, passed some gas and had a small bowel movement today, there is no chest pain or shortness of breath and no urinary symptoms. She will be reevaluated by surgery for possible discharge today or tomorrow. Objective - Vital Signs Vital signs: Vital Signs Temp 98.9 F 04/21/18 07:00 Pulse 78 04/21/18 07:00 Resp 16 04/21/18 07:00 BP 112/70 04/21/18 07:00 Pulse Ox 98 04/21/18 07:00 Intake & Output 04/20/18 04/21/18 04/21/18 18:59 06:59 18:59 Intake Total 1000 1830 Balance 1000 1830 Intake: IV 1000 D5-0.45% NaCl with KCl 1000 20Meq/l 1,000 ml @ 125 mls/hr IV .Q8H [facility] Rx#: [id number] Intake, IV Titration 750 Amount D5-0.45% NaCl with KCl 750 20Meq/l 1,000 ml @ 125 mls/hr IV .Q8H [facility] Rx#: [id number] Oral 1080 Other: Voiding Method Toilet # Voids 4 1 # Bowel Movements 1 # [place] 0 - Exam Head normocephalic and atraumatic Neck supple no JVD no goiter Lungs few crackles at bases no wheezing Heart regular rate and rhythm S1-S2, no rub or gallop Abdomen is soft nontender nondistended hypoactive positive bowel sounds no hepatosplenomegaly Extremities no edema no cyanosis or clubbing Neuro alert and orientated to 3 - Labs CBC & Chem 7: 04/21/18 06:15 04/21/18 06:15 Labs: Abnormal Lab Results - Last 24 Hours (Table) 04/21/18 Range/Units 06:15 Potassium 5.3 H (3.5-5.1) mmol/L BUN 3 L (7-17) mg/dL AST 38 H (14-36) U/L Assessment and Plan Plan: 1. Status post lower anterior resection for diverticulitis and sigmoid colon mass. Surgery completed April 17 2018. 2. Essential hypertension: Patient did have some hypotension yesterday likely expected due to surgery and anesthesia. Blood pressures improved. Continue the Norvasc and lisinopril 3. Hypothyroidism continue her Synthroid 4. Generalized anxiety disorder continue Lexapro GI prophylaxis Pepcid and DVT prophylaxis subcu heparin Continue current management, surgery will decide on discharge
[2018-04-21] MEDS: LACTATED RINGERS 1,000 ML IV SCH (12:42)
--- NOTE | 2018-04-21 13:27 | P.PN ---
Subjective Progress Note Date: 04/21/18 The patient is status post sigmoid colectomy for diverticulitis. Her is at bedside. She is now passing flatus. She is eager to go home. Per discussion with her nurse, she still requires IV Dilaudid including oral pain meds. Objective - Vital Signs Vital signs: Vital Signs Temp 98.9 F 04/21/18 07:00 Pulse 78 04/21/18 07:00 Resp 16 04/21/18 07:00 BP 112/70 04/21/18 07:00 Pulse Ox 98 04/21/18 07:00 Intake & Output 04/20/18 04/21/18 04/21/18 18:59 06:59 18:59 Intake Total 1000 1830 Balance 1000 1830 Intake: IV 1000 D5-0.45% NaCl with KCl 1000 20Meq/l 1,000 ml @ 125 mls/hr IV .Q8H [facility] Rx#: [id number] Intake, IV Titration 750 Amount D5-0.45% NaCl with KCl 750 20Meq/l 1,000 ml @ 125 mls/hr IV .Q8H [facility] Rx#: [id number] Oral 1080 Other: Voiding Method Toilet # Voids 4 1 # Bowel Movements 1 # [place] 0 - Exam GENERAL: Well developed and in no acute distress. Pleasant. HEENT: No sclera icterus. Extraocular movements grossly intact. Moist buccal mucosa. Head is atraumatic, normocephalic. Hears conversational speech. No nasal drainage. NECK: Supple without lymphadenopathy. CHEST: Non-labored respirations and equal bilateral excursions. CARDIOVASCULAR: Regular rate and rhythm. Palpable 2+ radial pulses. ABDOMEN: Soft, dressing intact. Mild serosanguineous drainage. No peritonitis. MUSCULOSKELETAL: No clubbing, cyanosis or edema. NEUROLOGIC: No focal or lateralizing signs. PSYCH: Appropriate affect. Alert and oriented to person, place and time. SKIN: Good skin turgor. Well perfused. - Labs CBC & Chem 7: 04/21/18 06:15 04/21/18 06:15 Labs: Abnormal Lab Results - Last 24 Hours (Table) 04/21/18 Range/Units 06:15 Potassium 5.3 H (3.5-5.1) mmol/L BUN 3 L (7-17) mg/dL AST 38 H (14-36) U/L Assessment and Plan (1) Diverticulitis Current Visit: Yes Status: Acute Code(s): K57.92 - DVTRCLI OF INTEST, PART UNSP, W/O PERF OR ABSCESS W/O BLEED SNOMED Code(s): 021747796 (2) S/P colon resection Current Visit: Yes Status: Acute Code(s): Z90.49 - ACQUIRED ABSENCE OF OTHER SPECIFIED PARTS OF DIGESTIVE TRACT SNOMED Code(s): 730606372 Plan: 1. Soft diet. 2. Continue hospitalization.
[2018-04-21] MEDS: HYDROcodone/APAP 5-325MG 1 EACH TAB PO PRN ×2 (15:13→21:48)
[2018-04-21] MEDS: TEMAZEPAM 7.5 MG CAP PO SCH (21:48)
[2018-04-22] MEDS: HEPARIN SODIUM,PORCINE 5,000 UNIT/ML 1 ML VIAL SQ SCH ×2 (00:08→08:36)
[2018-04-22] MEDS: HYDROcodone/APAP 5-325MG 1 EACH TAB PO PRN ×3 (05:20→13:57)
[2018-04-22] MEDS: LEVOTHYROXINE 137 MCG TAB PO SCH (05:20)
[2018-04-22 07:05] LABS: Basophils % (A) 1 %; Eosinophils # (A) 0.3 k/uL (0-0.7); Eosinophils % (A) 4 %; HCT 39.3 % (34.0-46.0); HGB 11.8 gm/dL (11.4-16.0); Hypochromasia Slight; Lymphocytes # (A) 1.2 k/uL (1.0-4.8); Lymphocytes % (A) 20 %; MCHC 30.1 g/dL (31.0-37.0); MCV 86.3 fL (80.0-100.0); Mean Platelet Volume 7.2; Monocytes # (A) 0.5 k/uL (0-1.0); Monocytes % (A) 8 %; Neutrophils # (A) 4.2 k/uL (1.3-7.7); Neutrophils % (A) 66 %; Platelet Count 274 k/uL (150-450); RBC 4.55 m/uL (3.80-5.40); RDW 13.5 % (11.5-15.5); WBC 6.4 k/uL (3.8-10.6)
[2018-04-22 07:24] LABS: ALT 45 U/L (9-52); AST 35 U/L (14-36); Albumin 3.4 g/dL (3.5-5.0); Alkaline Phosphatase 74 U/L (38-126); Anion Gap 9 mmol/L; Blood Urea Nitrogen 5 mg/dL (7-17); Calcium 9.5 mg/dL (8.4-10.2); Carbon Dioxide 29 mmol/L (22-30); Chloride 101 mmol/L (98-107); Glucose 95 mg/dL (74-99); Potassium 4.6 mmol/L (3.5-5.1); Sodium 139 mmol/L (137-145); Total Bilirubin 0.3 mg/dL (0.2-1.3); Total Protein 6.1 g/dL (6.3-8.2)
[2018-04-22 08:04] VITALS: PULSE 80; RESP 16
[2018-04-22] MEDS: PANTOPRAZOLE 40 MG/10 ML VIAL IVP SCH (08:35)
[2018-04-22] MEDS: amLODIPine 5 MG TAB PO SCH (08:36)
[2018-04-22] MEDS: LISINOPRIL 10 MG TAB PO SCH (08:36)
[2018-04-22] MEDS: ALVIMOPAN 12 MG CAPSULE PO SCH (08:36)
[2018-04-22] MEDS: FAMOTIDINE 20 MG/2 ML VIAL IV SCH (08:36)
[2018-04-22] MEDS: buPROPion XL 300 MG TAB.ER.24H PO SCH (08:36)
[2018-04-22] MEDS: ESCITALOPRAM 20 MG TAB PO SCH (08:36)
[2018-04-22] MEDS: D5-0.45% NACL WITH KCL 20MEQ/L 1,000 ML IV SCH (08:43)
[2018-04-22] MEDS: LACTATED RINGERS 1,000 ML IV SCH (08:43)
[2018-04-22 10:51] VITALS: BP 125/64; TEMP 98.7
--- NOTE | 2018-04-22 11:04 | P.DS ---
Providers Date of admission: 04/17/18 13:22 Expected date of discharge: 04/22/18 Attending physician: Saul Haney Consults: 04/17/18 15:59 Consult Physician Routine Consulting Provider: Beth Parmar Consult Reason/Comments: Medical management Do you want consulting provider notified?: Yes Primary care physician: Stated None Hospital Course: 63-year-old presented to undergo a low anterior resection with has a history of chronic diverticulitis failed outpatient treatment On April 17 underwent a low anterior resection for sigmoid colon mass / diverticulitis There were no postop events patient was tolerating pain medication and diet was felt to be hemodynamically stable and appropriate to proceed with a discharge Impression Status post low anterior resection for a sigmoid colon mass diverticulitis done April 17 History of chronic diverticulitis Hypothyroid on supplements essential hypertension Anxiety disorder nonspecified Sigmoid colon path report diverticulosis The above impression and plan of care have been discussed and directed by signing physician. Kamla Gregory nurse practitioner acting as scribe for signing physician. Plan - Discharge Summary Discharge Rx Participant: Yes New Discharge Prescriptions: New HYDROcodone/APAP 5-325MG [[place] 5-325] 1 each PO Q4HR PRN #20 tab PRN Reason: Pain Continue buPROPion HCL [Wellbutrin XL] 300 mg PO DAILY Levothyroxine Sodium [Synthroid] 137 mcg PO DAILY Ibuprofen [Advil] 200 mg PO Q6HR PRN PRN Reason: Pain Escitalopram [Lexapro] 20 mg PO DAILY Colchicine [Colcrys] 0.6 mg PO DAILY PRN PRN Reason: GOUT Omeprazole 40 mg PO DAILY Temazepam [Restoril] 7.5 mg PO HS amLODIPine BESYLATE/BENAZEPRIL [Lotrel 5-10 mg Capsule] 1 cap PO DAILY Discharge Medication List Colchicine [Colcrys] 0.6 mg PO DAILY PRN 03/01/18 [History] Escitalopram [Lexapro] 20 mg PO DAILY 03/01/18 [History] Ibuprofen [Advil] 200 mg PO Q6HR PRN 03/01/18 [History] Levothyroxine Sodium [Synthroid] 137 mcg PO DAILY 03/01/18 [History] Omeprazole 40 mg PO DAILY 03/01/18 [History] buPROPion HCL [Wellbutrin XL] 300 mg PO DAILY 03/01/18 [History] Temazepam [Restoril] 7.5 mg PO HS 04/12/18 [History] amLODIPine BESYLATE/BENAZEPRIL [Lotrel 5-10 mg Capsule] 1 cap PO DAILY 04/12/18 [History] HYDROcodone/APAP 5-325MG [[place] 5-325] 1 each PO Q4HR PRN #20 tab 04/22/18 [Rx] Follow up Appointment(s)/Referral(s): Saul Haney MD [STAFF PHYSICIAN] - 1 Week Activity/Diet/Wound Care/Special Instructions: No tub bath for six weeks. Shower daily. No lifting over 10 pounds for the next 6 weeks. May use ice packs to surgical site. No driving while taking narcotic for pain. Discharge Disposition: HOME SELF-CARE
--- NOTE | 2018-04-22 11:48 | P.PN ---
Subjective Progress Note Date: 04/22/18 This is a 63-year-old female, patient of Dr. Nguyễn. She has a known past medical history of recurrent diverticulitis, irritable bowel syndrome, GERD, hyperlipidemia, hypertension and hypothyroidism. She also had a history of a liver abscess that required treatment with antibiotics. Patient resented to the hospital for lower anterior resection. She was admitted to the surgical service. We've been consulted for medical management. Yesterday patient underwent a lower anterior resection for diverticulitis and a sigmoid colon mass. Estimated blood loss 150 mL. Patient has epidural in place and Holland catheter. She denies any abdominal pain. Denies any nausea or vomiting. She denies any chest pain or shortness of breath. Denies any fever chills or sweats. She has not passed gas or had bowel movement yet. She has belched. Patient did have some hypotension earlier yesterday. Blood pressure has shown improvement. We'll restart home blood pressure medications. 04/19/2018 patient standing up in room. Reports pain is controlled. Apparently epidural may have been leaking last night. Epidural scheduled to be removed this morning and patient started on [place]. She is also scheduled to have the Holland catheter discontinued. Patient has not passed gas or had bowel movement yet. Has been started on a clear liquid diet per surgical service. Denies any chest pain or shortness of breath. On 04/20/2018 patient is alert and oriented 3 she is feeling better tolerating clear liquid diet well no nausea or vomiting, still having some abdominal pain, has been ambulating, passed some gas and had a small bowel movement today, there is no chest pain or shortness of breath and no urinary symptoms. She will be reevaluated by surgery for possible discharge today or tomorrow. On 04/22/2018 patient is alert and oriented 3. Patient has been tolerating a low fiber diet. Patient denies nausea or vomiting. Does state she has minimal abdominal pain that is adequately controlled with the [place]. Patient does state she had a bowel movement. Patient has been up walking the halls. Patient is eager to go home. Patient denies chest pain or shortness of breath. Denies any urinary burning or frequency. Patient has been cleared for discharge from surgical standpoint. Objective - Vital Signs Vital signs: Vital Signs Temp 98.7 F 04/22/18 10:50 Pulse 80 04/22/18 08:04 Resp 16 04/22/18 08:04 BP 125/64 04/22/18 10:50 Pulse Ox 95 04/22/18 08:04 Intake & Output 04/21/18 04/22/18 04/22/18 18:59 06:59 18:59 Intake Total 3345 Balance 3345 Intake: IV 1175 D5-0.45% NaCl with KCl 1175 20Meq/l 1,000 ml @ 125 mls/hr IV .Q8H [facility] Rx#: [id number] Oral 2170 Other: Voiding Method Toilet # Voids 3 3 # Bowel Movements 3 # [place] 0 - Exam Head normocephalic Neck supple Lungs clear to auscultation bilaterally no wheezing or crackles Heart regular rate and rhythm S1-S2, no rub or gallop Abdomen is soft nontender nondistended positive bowel sounds no hepatosplenomegaly Extremities no edema Neuro alert and orientated to 3 - Labs CBC & Chem 7: 04/22/18 06:24 04/22/18 06:24 Labs: Abnormal Lab Results - Last 24 Hours (Table) 04/22/18 04/22/18 Range/Units 06:24 06:24 MCHC 30.1 L (31.0-37.0) g/dL BUN 5 L (7-17) mg/dL Total Protein 6.1 L (6.3-8.2) g/dL Albumin 3.4 L (3.5-5.0) g/dL Assessment and Plan Assessment: 1. Status post lower anterior resection for diverticulitis and sigmoid colon mass. Surgery completed April 17 2018. Patient has been tolerating a low-fat diet per surgical services. Patient has been having a bowel movement and walking the halls. Patient has been cleared for discharge from surgical standpoint. 2. Essential hypertension: Patient did have some hypotension yesterday likely expected due to surgery and anesthesia. Blood pressures improved. Continue the Norvasc and lisinopril. Patient states she has a blood pressure cuff at home. Advised patient to take pressure every a.m. prior to medication administration. Patient follow-up with primary care provider. Current blood pressure 125/64 3. Hypothyroidism continue her Synthroid 4. Generalized anxiety disorder continue Lexapro GI prophylaxis Pepcid and DVT prophylaxis subcu heparin I performed an examination of the patient and discussed their management with the Nurse Practitioner. I have reviewed the Nurse Practitioner's notes and agree with the documented findings and plan of care
== END 2018-04-22 14:15 | disposition home or self-care (01) | DRG 331 ==
LOC: 2ORMAIN 13:22 → 3SUR 16:24
PROVIDERS: ADMIT Surgery; ATTEND Surgery
PROC: 0DBN0ZZ Excision of Sigmoid Colon, Open Approach (ICD-10-PCS; principal; 2018-04-17 15:00)
DX: K57.32 Diverticulitis of large intestine without perforation or abscess without bleeding (principal); E78.5 Hyperlipidemia, unspecified; F41.1 Generalized anxiety disorder; I10 Essential (primary) hypertension; K21.9 Gastro-esophageal reflux disease without esophagitis; K58.9 Irritable bowel syndrome, unspecified; Z80.3 Family history of malignant neoplasm of breast; Z82.49 Family history of ischemic heart disease and other diseases of the circulatory system; Z83.2 Family history of diseases of the blood and blood-forming organs and certain disorders involving the immune mechanism; Z83.3 Family history of diabetes mellitus; Z87.891 Personal history of nicotine dependence; Z79.899 Other long term (current) drug therapy; M10.9 Gout, unspecified; Z79.1 Long term (current) use of non-steroidal anti-inflammatories (NSAID); Z79.890 Hormone replacement therapy; Z91.018 Allergy to other foods; E89.0 Postprocedural hypothyroidism; I95.9 Hypotension, unspecified
CPT/HCPCS: 80048; 80053; 85025; 86850; 86900; 86901; 88307

== ENCOUNTER → 2019-08-26 | Outpatient (CLI) | payer MEDICARE ==
[2019-08-26 12:27] LABS: Basophils % (A) 1 %; Eosinophils # (A) 0.2 k/uL (0-0.7); Eosinophils % (A) 4 %; HCT 43.8 % (34.0-46.0); HGB 14.4 gm/dL (11.4-16.0); Lymphocytes # (A) 1.8 k/uL (1.0-4.8); Lymphocytes % (A) 27 %; MCH 30.3 pg (25.0-35.0); MCHC 32.9 g/dL (31.0-37.0); Mean Platelet Volume 8.3; Monocytes # (A) 0.3 k/uL (0-1.0); Monocytes % (A) 5 %; Neutrophils % (A) 62 %; Platelet Count 199 k/uL (150-450); RBC 4.76 m/uL (3.80-5.40); RDW 12.5 % (11.5-15.5); WBC 6.5 k/uL (3.8-10.6)
== END | disposition home or self-care (01) ==
LOC: LABPAT 11:31
PROVIDERS: ATTEND Surgery
DX: Z01.812 Encounter for preprocedural laboratory examination (principal); Z01.818 Encounter for other preprocedural examination; K43.0 Incisional hernia with obstruction, without gangrene
CPT/HCPCS: 36415; 85025; 93005

== ENCOUNTER 2019-09-02 08:51 | Day surgery (SDC) | payer MEDICARE ==
[2019-08-25 14:11] VITALS: BMI 28.2
[~2019-09-02 08:51] MED LIST changes: +HEPARIN SODIUM,PORCINE 5,000 UNIT/ML 1 ML VIAL SQ ONE; +HYDROmorphone 0.5 MG/0.5 ML SYRINGE IVP PRN; +MIDAZOLAM 2 MG/2 ML VIAL IV PRN; +ONDANSETRON 4 MG/2 ML VIAL IVP ONE; +SCOPOLAMINE 1.5MG/72HR PATCH TRANSDERM ONE; -ceFAZolin IN SWFI 2 GM/20 ML SYRINGE IVP ONE; -metroNIDAZOLE-NS PMX 500 MG in SALINE 1 100ML.BAG IVPB ONE
[2019-09-02] MEDS: LACTATED RINGERS 1,000 ML IV SCH ×2 (09:38→12:30)
--- NOTE | 2019-09-02 09:53 | P.GSHP ---
History of Present Illness H&P Date: 09/02/19 Chief Complaint: Incisional hernia This a 64-year-old female who presents today for laparoscopic robotic-assisted repair of incisional hernia. Patient developed a hernia at the superior portion of her low midline scar. The hernia measured prostate 5 cm in diameter. Past Medical History Past Medical History: GERD/Reflux, Hyperlipidemia, Hypertension, Osteoarthritis (OA), Pneumonia, Thyroid Disorder Additional Past Medical History / Comment(s): IBS, diarrhea, diverticulitis, past liver abscess, hx gout, varicose veins, hiatal hernia, hx ulcers, History of Any Multi-Drug Resistant Organisms: None Reported Past Surgical History: Bowel Resection, Joint Replacement, Orthopedic Surgery, Tonsillectomy Additional Past Surgical History / Comment(s): Partial thyroidectomy, diagnostic laparoscopy, rt rotator cuff repair, Past Anesthesia/Blood Transfusion Reactions: Motion Sickness Smoking Status: Former smoker - Past Family History Father Family Medical History: Congestive Heart Failure (CHF), Coronary Artery Disease (CAD), Diabetes Mellitus Additional Family Medical History / Comment(s): Father at the age of 72 yrs. Mother Family Medical History: No Reported History Additional Family Medical History / Comment(s): Mother was healthy and lived to be 96 yrs old. Sister(s) Family Medical History: Cancer Additional Family Medical History / Comment(s): 1-sister breast cancer, 1-sister "bleeding disorder" Medications and Allergies Home Medications Medication Instructions Recorded Confirmed Type Escitalopram [Lexapro] 20 mg PO DAILY 03/01/18 09/02/19 History Ibuprofen [Advil] 200 mg PO Q6HR PRN 03/01/18 09/02/19 History Omeprazole 40 mg PO DAILY 03/01/18 09/02/19 History buPROPion HCL [Wellbutrin XL] 300 mg PO DAILY 03/01/18 09/02/19 History amLODIPine BESYLATE/BENAZEPRIL 1 cap PO DAILY 04/12/18 09/02/19 History [Lotrel 5-10 MG] Cholecalciferol (Vitamin D3) 5,000 unit PO DAILY 08/25/19 09/02/19 History [Vitamin D3] Levothyroxine Sodium 150 mcg PO QAM 08/25/19 09/02/19 History Montelukast [Singulair] 10 mg PO DAILY PRN 08/25/19 09/02/19 History Allergies Allergy/AdvReac Type Severity Reaction Status Date / Time apple Allergy throat Verified 09/02/19 09:18 swelling peach Allergy throat Verified 09/02/19 09:18 swelling pear Allergy throat Verified 09/02/19 09:18 sweliing pet dander Allergy watery Uncoded 09/02/19 09:18 eyes, sneezing TREE FRUIT (NON-CITRUS) Allergy throat Uncoded 09/02/19 09:18 swelling Surgical - Exam Vital Signs Temp Pulse Resp BP Pulse Ox 99.7 F H 96 18 161/80 96 09/02/19 09:27 09/02/19 09:27 09/02/19 09:27 09/02/19 09:27 09/02/19 09:27 - General well developed, well nourished, no distress - Eyes PERRL - ENT normal pinna - Neck no masses - Respiratory normal expansion - Cardiovascular Rhythm: regular - Abdomen Abdomen: soft, non tender Hernia: incisional (5 cm incisional hernia located above the umbilicus) Assessment and Plan Assessment: Incisional hernia. We'll perform laparoscopic robotic-assisted repair.
[2019-09-02] MEDS ORDERED: fentaNYL (PF) 50 MCG/ML 2 ML AMP IV ONE (09:56)
[2019-09-02] MEDS ORDERED: NEOSTIGMINE 1 MG/ML 10 ML VIAL ONE (10:13)
[2019-09-02] MEDS ORDERED: ROCURONIUM BROMIDE 10 MG/ML 10 ML VIAL IV ONE (10:13)
[2019-09-02] MEDS ORDERED: HYDROmorphone (PF) 1 MG/ML ONE (10:13)
[2019-09-02] MEDS ORDERED: ROPIVACAINE 5 MG/ML 30 ML VIAL ONE (10:13)
[2019-09-02] MEDS ORDERED: SUCCINYLCHOLINE CHLORIDE 100 MG/5 ML SYR IV ONE (10:13)
[2019-09-02] MEDS ORDERED: MIDAZOLAM 2 MG/2 ML VIAL ONE (10:13)
[2019-09-02] MEDS ORDERED: KETOROLAC 30 MG/ML 1 ML VIAL ONE (10:13)
[2019-09-02] MEDS ORDERED: fentaNYL (PF) 50 MCG/ML 2 ML AMP ONE (10:13)
[2019-09-02] MEDS ORDERED: LIDOCAINE 1% INJ 10MG/ML (20 ML MDV) ONE (10:13)
[2019-09-02] MEDS ORDERED: PROPOFOL 10 MG/ML 20 ML VIAL IV ONE (10:13)
[2019-09-02] MEDS ORDERED: GLYCOPYRROLATE 0.2 MG/ML 2 ML VIAL ONE (10:13)
[2019-09-02] MEDS ORDERED: DEXAMETHASONE SOD PHOSPHATE 4 MG/ML 1 ML VIAL ONE (10:13)
--- NOTE | 2019-09-02 10:31 | P.ANPRN ---
Procedure Note - Anesthesia - Nerve Block Performed Bilateral Transversus Abdominis Single Date of Procedure: 09/02/19 Procedure Start Time: 09:56 Procedure Stop Time: 10:06 Location of Patient: PreOp Indication: Acute Post-Operative Pain, Requested by Surgeon Sedation Type: Sedate with meaningful contact maintained Preparation: Sterile Prep Position: Supine Catheter: None Needle Types: Pajunk Needle Gauge: 21 Ultrasound used to visualize needle placement: Yes Ultrasound used to observe medication spread: Yes Injectate: 0.5% Ropivacaine (see comment for volume) (ROPIVACAINE 0.5% 20 CC + DECADRON 4MG --- PER SIDE) Blood Aspirated: No Pain Paresthesia on Injection Noted: No Resistance on Injection: Normal Image Stored and Saved: Yes Events: Uneventful and Well Tolerated
[2019-09-02] MEDS ORDERED: BUPIVACAIN-EPI 0.25%-1:200,000 30 ML VIAL SQ ONE (10:51)
[2019-09-02] MEDS ORDERED: LACTATED RINGERS 1,000 ML IV ONE (11:28)
--- NOTE | 2019-09-02 11:29 | P.OP ---
Date of Procedure: 09/02/19 Preoperative Diagnosis: Incarcerated incisional hernia Postoperative Diagnosis: Incarcerated incisional hernia Procedure(s) Performed: Laparoscopic robotic system repair of incarcerated incisional hernia Anesthesia: GETA Estimated Blood Loss (ml): 20 Pathology: none sent Condition: stable Description of Procedure: The patient was placed on the operating table in the supine position. He received general anesthesia. His abdomen was prepped and draped usual fashion. Using a 5 mm optical trocar under direct visualization the peritoneal cavity was entered in the left upper quadrant. The abdomen was then insufflated. The laparoscope was placed back into the perineal cavity. Next a 8 mm robotic trocar was placed in the left lower quadrant and a 12 mm robotic trocar was placed in the left lateral position. The original 5 mm trocar was exchanged for a 8 mm robotic trocar. The patient's placed in the left side up position. And the patient was undocked the robot. The incisional hernia was visualized. The omentum was reduced Using hook cautery the peritoneum over the umbilical hernia was excised. The fascial opening was repaired using 0V LOC suture. Next a piece of 11 cm round ventral light ST mesh was placed into the. Cavity and secured with 2 OV lock suture. The patient was undocked the robot. The needles were retrieved. The fascia of the 12 mm trocar site was closed with 0 Ethibond suture. Skin was closed interrupted 3-0 Monocryl suture. Dermabond dressings was applied. Patient top procedure well and was sent to recovery room stable condition.
[2019-09-02 11:45] VITALS: TEMP 99.2
[2019-09-02] MEDS ORDERED: HYDROcodone/APAP 5-325MG 1 EACH TAB PO ONE (12:48)
[2019-09-02 13:04] VITALS: BP 120/70; PULSE 94; RESP 17
== END 2019-09-02 13:41 | disposition home or self-care (01) ==
LOC: OR 08:51
PROVIDERS: ATTEND Surgery
DX: K43.0 Incisional hernia with obstruction, without gangrene (principal); I10 Essential (primary) hypertension; E78.5 Hyperlipidemia, unspecified; K21.9 Gastro-esophageal reflux disease without esophagitis; K44.9 Diaphragmatic hernia without obstruction or gangrene; M19.90 Unspecified osteoarthritis, unspecified site; F41.9 Anxiety disorder, unspecified; F32.9 Major depressive disorder, single episode, unspecified; D64.9 Anemia, unspecified; K58.0 Irritable bowel syndrome with diarrhea; I83.90 Asymptomatic varicose veins of unspecified lower extremity; E89.0 Postprocedural hypothyroidism; Z91.018 Allergy to other foods; Z91.09 Other allergy status, other than to drugs and biological substances; Z87.891 Personal history of nicotine dependence; Z87.19 Personal history of other diseases of the digestive system; Z79.890 Hormone replacement therapy; Z79.899 Other long term (current) drug therapy; Z98.890 Other specified postprocedural states; Z87.01 Personal history of pneumonia (recurrent); Z90.89 Acquired absence of other organs; Z90.49 Acquired absence of other specified parts of digestive tract; Z82.49 Family history of ischemic heart disease and other diseases of the circulatory system; Z83.3 Family history of diabetes mellitus; Z80.3 Family history of malignant neoplasm of breast
CPT/HCPCS: 64488; 86900; 86901; 86850; 49655; C1781; J2250; J1644; J1100 ×2; J2710; J0690; J2405; J2001; J3010; J1885; J1170 ×2; J2795; J0330; J2704

== ENCOUNTER 2020-04-28 07:03 | Emergency (ER) | payer MEDICARE ==
[2020-04-28 07:14] VITALS: BP 146/90; PULSE 88; RESP 18; TEMP 98.6
[2020-04-28] MEDS ORDERED: KETOROLAC 15 MG/ML 1 ML VIAL IM STA (07:26)
--- NOTE | 2020-04-28 07:30 | ED ---
General Adult HPI - General Chief complaint: Fall Stated complaint: Fall, right wrist injury Time Seen by Provider: 04/28/20 07:05 Source: patient, RN notes reviewed, old records reviewed Mode of arrival: ambulatory Limitations: no limitations - History of Present Illness Initial comments: This is a 65-year-old female who comes to the emergency department stating that she felt a bit hurt her right wrist. Patient states she also bumped her head but she denies being days she denies having any loss of consciousness. Patient denies being on any blood thinners. Patient denies headache per patient denies any neck pain. Patient denies any numbness or weakness. Patient's main complaint is right wrist and it is swollen and very tender to touch and it hurts with any movement. Patient denies any hand pain. Patient denies any elbow pain or shoulder pain. Patient denies any other injury at this time. Patient has good capillary refill and good sensation in her fingertips. - Related Data Home Medications Medication Instructions Recorded Confirmed Escitalopram [Lexapro] 20 mg PO DAILY 03/01/18 09/02/19 Ibuprofen [Advil] 200 mg PO Q6HR PRN 03/01/18 09/02/19 Omeprazole 40 mg PO DAILY 03/01/18 09/02/19 buPROPion HCL [Wellbutrin XL] 300 mg PO DAILY 03/01/18 09/02/19 amLODIPine BESYLATE/BENAZEPRIL 1 cap PO DAILY 04/12/18 09/02/19 [Lotrel 5-10 MG] Cholecalciferol (Vitamin D3) 5,000 unit PO DAILY 08/25/19 09/02/19 [Vitamin D3] Levothyroxine Sodium 150 mcg PO QAM 08/25/19 09/02/19 Montelukast [Singulair] 10 mg PO DAILY PRN 08/25/19 09/02/19 Previous Rx's Medication Instructions Recorded Docusate [Colace] 100 mg PO BID #20 capsule 09/02/19 HYDROcodone/APAP 5-325MG [[place] 1 tab PO Q6HR PRN #10 tab 09/02/19 5-325] Allergies Allergy/AdvReac Type Severity Reaction Status Date / Time apple Allergy throat Verified 04/28/20 07:08 swelling peach Allergy throat Verified 04/28/20 07:08 swelling pear Allergy throat Verified 04/28/20 07:08 sweliing pet dander Allergy watery Uncoded 04/28/20 07:08 eyes, sneezing TREE FRUIT (NON-CITRUS) Allergy throat Uncoded 04/28/20 07:08 swelling Review of Systems ROS Statement: Those systems with pertinent positive or pertinent negative responses have been documented in the HPI. ROS Other: All systems not noted in ROS Statement are negative. Past Medical History Past Medical History: GERD/Reflux, Hyperlipidemia, Hypertension, Osteoarthritis (OA), Pneumonia, Thyroid Disorder Additional Past Medical History / Comment(s): IBS, diarrhea, diverticulitis, past liver abscess, hx gout, varicose veins, hiatal hernia, hx ulcers, History of Any Multi-Drug Resistant Organisms: None Reported Past Surgical History: Bowel Resection, Joint Replacement, Orthopedic Surgery, Tonsillectomy Additional Past Surgical History / Comment(s): Partial thyroidectomy, diagnostic laparoscopy, rt rotator cuff repair, Past Anesthesia/Blood Transfusion Reactions: Motion Sickness Past Psychological History: Anxiety, Depression Smoking Status: Never smoker Past Alcohol Use History: Daily, Heavy Past Drug Use History: None Reported - Past Family History Father Family Medical History: Congestive Heart Failure (CHF), Coronary Artery Disease (CAD), Diabetes Mellitus Additional Family Medical History / Comment(s): Father at the age of 72 yrs. Mother Family Medical History: No Reported History Additional Family Medical History / Comment(s): Mother was healthy and lived to be 96 yrs old. Sister(s) Family Medical History: Cancer Additional Family Medical History / Comment(s): 1-sister breast cancer, 1-sister "bleeding disorder" General Exam - General Exam Comments Initial Comments: GENERAL Patient is well-developed and well-nourished. Patient is in mild distress. Patient has a hematoma the right side of forehead. Patient's cervical spine is nontender and has full range of motion without eliciting any pain EYES Patient's pupils are equal and round. Extraocular motion is intact SKIN Unremarkable NEURO The patient is alert and oriented 3 PYSCH Patient has normal interpersonal interactions. MUSCULOSKELETAL Patient's right wrist is swollen on the posterior aspect and is tender to palpation. Limitations: no limitations Course Vital Signs 04/28/20 07:09 Temperature 98.6 F Pulse Rate 88 Respiratory 18 Rate Blood Pressure 146/90 O2 Sat by Pulse 97 Oximetry Medical Decision Making - Medical Decision Making Patient received Toradol emergency department. X-ray shows a distal hairline nondisplaced fracture of the radius. I placed a splint on the patient and she will follow-up with orthopedic. Disposition Clinical Impression: Radius fracture, Traumatic hematoma of forehead Disposition: HOME SELF-CARE Instructions (If sedation given, give patient instructions): Fall Prevention (ED) Additional Instructions: Patient's take Motrin and Tylenol for pain. Is patient prescribed a controlled substance at d/c from ED?: No Referrals: Luis Delaney MD [STAFF PHYSICIAN] - 1-2 days
--- NOTE | 2020-04-28 07:49 | XR ---
EXAMINATION TYPE: XR wrist complete RT DATE OF EXAM: 04/28/2020 CLINICAL HISTORY: pain TECHNIQUE: Frontal, lateral and oblique images of the right wrist are obtained. COMPARISON: None. FINDINGS: Vague cortical lucency noted on one image out of 4 which likely reflects normal bony undulation howev er nondisplaced hairline fracture is difficult to exclude. Correlate clinically with point tenderness . IMPRESSION: As above
--- NOTE | 2020-04-29 04:14 | CDI ---
Dear Alpesh Pagan MD Please provide the type of splint apllied , required Thank you, Janie Emerson, Trimming Cutter Machine If you have any questions, please contact Wildlife Biology Technician at [phone] [facility]
== END 2020-04-28 08:14 | disposition home or self-care (01) ==
LOC: EC 07:03
DX: S52.501A Unspecified fracture of the lower end of right radius, initial encounter for closed fracture (principal); S00.83XA Contusion of other part of head, initial encounter; I10 Essential (primary) hypertension; M19.90 Unspecified osteoarthritis, unspecified site; F41.9 Anxiety disorder, unspecified; F32.9 Major depressive disorder, single episode, unspecified; K21.9 Gastro-esophageal reflux disease without esophagitis; K44.9 Diaphragmatic hernia without obstruction or gangrene; E07.9 Disorder of thyroid, unspecified; Z79.890 Hormone replacement therapy; Z79.899 Other long term (current) drug therapy; Z91.018 Allergy to other foods; Z91.09 Other allergy status, other than to drugs and biological substances; Z96.60 Presence of unspecified orthopedic joint implant; W18.2XXA Fall in (into) shower or empty bathtub, initial encounter
CPT/HCPCS: 73110; 99284; 29125; 96372; J1885

== ENCOUNTER → 2020-04-30 | Outpatient (CLI) | payer MEDICARE ==
--- NOTE | 2020-04-30 14:02 | CT ---
EXAMINATION TYPE: CT wrist RT wo con DATE OF EXAM: 04/30/2020 COMPARISON: Right wrist radiograph 04/28/2020 HISTORY: Fracture Rt Wrist CT DLP: 90.3 mGycm Automated exposure control for dose reduction was used. Contiguous axial images of the right wrist were obtained without intravenous contrast. Coronal and sa gittal reformatted images were obtained. Three-dimensional images were generated and utilized on a [employer] workstation. FINDINGS: Overlying casting material. There is comminuted fracture of the distal radius metaphysis and epiphysi s extending to the radiocarpal articular surface. No significant displacement or angulation. No evide nce of dislocation. The distal radioulnar joint space and joint spaces of the carpal bones are mainta ined. No significant soft tissue spine. IMPRESSION: Comminuted nondisplaced fracture of the distal radius extending to the radiocarpal articular surface.
== END | disposition home or self-care (01) ==
LOC: RADCTMAIN 13:12
PROVIDERS: ATTEND Orthopaedic Surgery
DX: S52.571A Other intraarticular fracture of lower end of right radius, initial encounter for closed fracture (principal)

== ENCOUNTER 2021-02-13 08:04 | Observation (INO) | payer MEDICARE ==
[2021-02-13] MEDS ORDERED: IBUPROFEN 400 MG TAB PO STA (08:19)
[2021-02-13] MEDS ORDERED: ACETAMINOPHEN TAB 325 MG TAB PO STA (08:19)
[2021-02-13] MEDS ORDERED: AMPICILLIN-SULBACTAM 3 GM in SODIUM CHLORIDE 0.9% 100 ML IVPB STA (08:20)
--- NOTE | 2021-02-13 08:25 | ED ---
General Adult HPI - General Chief complaint: Skin/Abscess/Foreign Body Stated complaint: dental infection Time Seen by Provider: 02/13/21 08:08 Source: patient, RN notes reviewed Mode of arrival: ambulatory Limitations: no limitations - History of Present Illness Initial comments: 65-year-old female with a past medical history of hyperlipidemia, hypertension, GERD, IBS presents to the emergency room for a chief complaint of dental infection. Patient reports that she had a cap removed moved on her right lower molar on January 27 because she had a cavity under this. They did drill the cavity out and replaced the cap This was done by her dentist in [place]. Patient reports that about one week ago she started to have pain in this area. She went back to the dentist on Sunday and a hole was drilled into the tooth for drainage apparently. She started on oral antibiotics and has been taking amoxicillin. Patient reports that since that time she has had worsening swelling under her chin and it does not seem to be going away. She reports she has had fevers on and off. She did take 400 of Motrin and 325 of Tylenol about an hour or 2 prior to arrival. Patient denies any difficulty breathing or swallowing.Patient has no other complaints at this time including shortness of breath, chest pain, abdominal pain, nausea or vomiting, headache, or visual changes. - Related Data Home Medications Medication Instructions Recorded Confirmed Escitalopram [Lexapro] 20 mg PO DAILY 03/01/18 09/02/19 Ibuprofen [Advil] 200 mg PO Q6HR PRN 03/01/18 09/02/19 Omeprazole 40 mg PO DAILY 03/01/18 09/02/19 buPROPion HCL [Wellbutrin XL] 300 mg PO DAILY 03/01/18 09/02/19 amLODIPine BESYLATE/BENAZEPRIL 1 cap PO DAILY 04/12/18 09/02/19 [Lotrel 5-10 MG] Cholecalciferol (Vitamin D3) 5,000 unit PO DAILY 08/25/19 09/02/19 [Vitamin D3] Levothyroxine Sodium 150 mcg PO QAM 08/25/19 09/02/19 Montelukast [Singulair] 10 mg PO DAILY PRN 08/25/19 09/02/19 Previous Rx's Medication Instructions Recorded Docusate [Colace] 100 mg PO BID #20 capsule 09/02/19 HYDROcodone/APAP 5-325MG [[place] 1 tab PO Q6HR PRN #10 tab 09/02/19 5-325] Allergies Allergy/AdvReac Type Severity Reaction Status Date / Time apple Allergy throat Verified 02/13/21 08:08 swelling peach Allergy throat Verified 02/13/21 08:08 swelling pear Allergy throat Verified 02/13/21 08:08 sweliing pet dander Allergy watery Uncoded 02/13/21 08:08 eyes, sneezing TREE FRUIT (NON-CITRUS) Allergy throat Uncoded 02/13/21 08:08 swelling Review of Systems ROS Statement: Those systems with pertinent positive or pertinent negative responses have been documented in the HPI. ROS Other: All systems not noted in ROS Statement are negative. Past Medical History Past Medical History: GERD/Reflux, Hyperlipidemia, Hypertension, Osteoarthritis (OA), Pneumonia, Thyroid Disorder Additional Past Medical History / Comment(s): IBS, diarrhea, diverticulitis, past liver abscess, hx gout, varicose veins, hiatal hernia, hx ulcers, History of Any Multi-Drug Resistant Organisms: None Reported Past Surgical History: Bowel Resection, Joint Replacement, Orthopedic Surgery, Tonsillectomy Additional Past Surgical History / Comment(s): Partial thyroidectomy, diagnostic laparoscopy, rt rotator cuff repair, Past Anesthesia/Blood Transfusion Reactions: Motion Sickness Past Psychological History: Anxiety, Depression Smoking Status: Never smoker Past Alcohol Use History: Daily Past Drug Use History: None Reported - Past Family History Father Family Medical History: Congestive Heart Failure (CHF), Coronary Artery Disease (CAD), Diabetes Mellitus Additional Family Medical History / Comment(s): Father at the age of 72 yrs. Mother Family Medical History: No Reported History Additional Family Medical History / Comment(s): Mother was healthy and lived to be 96 yrs old. Sister(s) Family Medical History: Cancer Additional Family Medical History / Comment(s): 1-sister breast cancer, 1-sister "bleeding disorder" General Exam Limitations: no limitations General appearance: alert, in no apparent distress Head exam: Present: atraumatic, normocephalic, normal inspection Eye exam: Present: normal appearance, PERRL, EOMI. Absent: scleral icterus, conjunctival injection, periorbital swelling ENT exam: Present: mucous membranes moist, other (Patient has induration with erythema in the submandibular area. no trismus). Absent: normal oropharynx (patient has cavity noted of tooth 30, no abscess. ) Neck exam: Present: normal inspection, full ROM. Absent: tenderness, meningismus, lymphadenopathy Respiratory exam: Present: normal lung sounds bilaterally. Absent: respiratory distress, wheezes, rales, rhonchi, stridor Cardiovascular Exam: Present: regular rate, normal rhythm, normal heart sounds. Absent: systolic murmur, diastolic murmur, rubs, gallop, clicks GI/Abdominal exam: Present: soft, normal bowel sounds. Absent: distended, tenderness, guarding, rebound, rigid Course Vital Signs 02/13/21 08:05 Temperature 99.6 F Pulse Rate 113 H Respiratory 18 Rate Blood Pressure 150/87 O2 Sat by Pulse 99 Oximetry Medical Decision Making - Medical Decision Making Vitals are stabl however patient is febrile with a temperature 100.5. She has previously taken 400 mg of Motrin and 325 mg of Tylenol 2 hours prior to arrival. Patient is well-appearing. No respiratory distress. No drooling. Patient does have erythema and edema and induration in the submandibular area. No sublingual edema. CBC CMP unremarkable. Lactic acid 0.9. CT soft tissue neck with contrast does show moderate inflammatory pack changer the mandible extending inferiorly. No abscess noted. Given cellulitis infection in the submandibular area and patient being on outpatient antibiotics for 4 days now we will admit for IV antibiotics. We will consult ENT. No airway compromise at this time. Dr Shankar also saw patient and agrees with treatment plan. - Lab Data Result diagrams: 02/13/21 08:39 02/13/21 08:39 Lab Results 02/13/21 02/13/21 02/13/21 Range/Units 08:39 08:39 08:39 WBC 7.7 (3.8-10.6) k/uL RBC 4.37 (3.80-5.40) m/uL Hgb 14.2 (11.4-16.0) gm/dL Hct 40.7 (34.0-46.0) % MCV 93.1 (80.0-100.0) fL MCH 32.4 (25.0-35.0) pg MCHC 34.8 (31.0-37.0) g/dL RDW 12.1 (11.5-15.5) % Plt Count 204 (150-450) k/uL MPV 8.3 Neutrophils % 80 % Lymphocytes % 12 % Monocytes % 6 % Eosinophils % 1 % Basophils % 0 % Neutrophils # 6.1 (1.3-7.7) k/uL Lymphocytes # 0.9 L (1.0-4.8) k/uL Monocytes # 0.5 (0-1.0) k/uL Eosinophils # 0.1 (0-0.7) k/uL Basophils # 0.0 (0-0.2) k/uL Sodium 137 (137-145) mmol/L Potassium 4.0 (3.5-5.1) mmol/L Chloride 101 (98-107) mmol/L Carbon Dioxide 25 (22-30) mmol/L Anion Gap 11 mmol/L BUN 8 (7-17) mg/dL Creatinine 0.55 (0.52-1.04) mg/dL Est GFR (CKD-EPI)AfAm >90 (>60 ml/min/1.73 sqM) Est GFR (CKD-EPI)NonAf >90 (>60 ml/min/1.73 sqM) Glucose 109 H (74-99) mg/dL Plasma Lactic Acid Dennis 0.9 (0.7-2.0) mmol/L Calcium 9.5 (8.4-10.2) mg/dL Total Bilirubin 0.6 (0.2-1.3) mg/dL AST 22 (14-36) U/L ALT 13 (4-34) U/L Alkaline Phosphatase 73 (38-126) U/L Total Protein 6.8 (6.3-8.2) g/dL Albumin 4.3 (3.5-5.0) g/dL Disposition Clinical Impression: Dental infection, Cellulitis of submandibular region, Failure of outpatient treatment Disposition: ADMITTED IP TO THIS HOSP Is patient prescribed a controlled substance at d/c from ED?: No Referrals: Kelly Nguyễn MD [Primary Care Provider] - 1-2 days Time of Disposition: 10:08
[2021-02-13] MEDS: SODIUM CHLORIDE 0.9% 500 ML 500 ML IV SCH ×2 (08:36→09:04)
[2021-02-13 08:53] LABS: Basophils % (A) 0 %; Eosinophils # (A) 0.1 k/uL (0-0.7); Eosinophils % (A) 1 %; HCT 40.7 % (34.0-46.0); HGB 14.2 gm/dL (11.4-16.0); Lymphocytes # (A) 0.9 k/uL (1.0-4.8); Lymphocytes % (A) 12 %; MCH 32.4 pg (25.0-35.0); MCHC 34.8 g/dL (31.0-37.0); MCV 93.1 fL (80.0-100.0); Mean Platelet Volume 8.3; Monocytes # (A) 0.5 k/uL (0-1.0); Monocytes % (A) 6 %; Neutrophils # (A) 6.1 k/uL (1.3-7.7); Neutrophils % (A) 80 %; Platelet Count 204 k/uL (150-450); RBC 4.37 m/uL (3.80-5.40); RDW 12.1 % (11.5-15.5); WBC 7.7 k/uL (3.8-10.6)
[2021-02-13 09:14] LABS: ALT 13 U/L (4-34); AST 22 U/L (14-36); African American GFR (CKD) >90 (>60 ml/min/1.73 sqM); Albumin 4.3 g/dL (3.5-5.0); Alkaline Phosphatase 73 U/L (38-126); Anion Gap 11 mmol/L; Blood Urea Nitrogen 8 mg/dL (7-17); Calcium 9.5 mg/dL (8.4-10.2); Carbon Dioxide 25 mmol/L (22-30); Chloride 101 mmol/L (98-107); Glucose 109 mg/dL (74-99); Non-African American GFR(CKD) >90 (>60 ml/min/1.73 sqM); Sodium 137 mmol/L (137-145); Total Bilirubin 0.6 mg/dL (0.2-1.3); Total Protein 6.8 g/dL (6.3-8.2)
--- NOTE | 2021-02-13 09:53 | CT ---
EXAMINATION TYPE: CT soft tissue neck w con DATE OF EXAM: 02/13/2021 HISTORY: right side facial pain and swelling, unresponsive to oral antibiotics; dental infection. COMPARISON: NONE CT DLP: 257.6 mGycm. Automated Exposure Control for Dose Reduction was Utilized. TECHNIQUE: CT scan of the neck is performed with IV Contrast, patient injected with 100 mL of Isovue 300, axial images are obtained, coronal and sagittal reformatted images are reviewed. FINDINGS: Airway: Hypoplastic or absent right thyroid lobe and isthmus. Parotid/submandibular glands: No gross abnormality seen. Carotid/Vascular Structures: Mild to moderate mixed plaque bilateral carotid bulbs extending into pro ximal internal carotid arteries without significant stenosis. Dominant left vertebral artery filling the basilar artery. Hypoplastic left P1 segment with filling of the P2 segment due to patent posterio r communicating artery. Osseous Structures: Mild to moderate disc space narrowing C3-C4, C5-C6, and C6-C7 levels with posteri or spur disc complexes efface the anterior thecal sac at these levels. Mild to moderate spurring C3-C 4 and C5-C6 levels. Other: Moderate ill-defined fluid and fat stranding over the mandible extending inferiorly. Cavitary fillings and crowns cause streak artifact from the lateral maxillary and mandibular teeth making eval uation at this level slightly suboptimal. No suspicious lucency in the bone identified. No well-forme d fluid collection or abscess clearly seen. Some prominent but subcentimeter lymph nodes throughout t he submandibular region bilaterally with some extension to the carotid space and posterior cervical t riangle. No abnormal greater than 1 cm adenopathy. Parapharyngeal fat space is maintained bilaterally . IMPRESSION: Moderate inflammatory warp changer the mandible extending inferiorly. No well-formed fluid collection or drainable abscess.
[2021-02-13] MEDS ORDERED: CLINDAMYCIN 600 MG in DEXTROSE 5% IN WATER 50 ML IVPB STA ×2 (10:03)
[2021-02-13] MEDS ORDERED: ACETAMINOPHEN TAB 325 MG TAB PO PRN (10:09)
[2021-02-13] MEDS ORDERED: NALOXONE 0.4 MG/ML 1 ML VIAL IV PRN (10:09)
[2021-02-13] MEDS ORDERED: DEXAMETHASONE SOD PHOSPHATE 10 MG/ML 1 ML VIAL IV STA (10:10)
[2021-02-13] MEDS: SODIUM CHLORIDE 0.9% 1,000 ML IV SCH ×2 (10:13→17:15)
--- NOTE | 2021-02-13 11:18 | P.HPIM ---
History of Present Illness H&P Date: 02/13/21 Chief Complaint: Submandibular cellulitis This is a 65-year-old female patient of Dr. Nguyễn. Patient presented to ER with concerns of infection to tooth. Patient reports that she had a cath removed on the right lower molar on January 27. Patient reports that one week after Removal she started to have pain in the area shunt back to the dentist and a hole was drilled into his for drainage. At that time patient reports that she was started on oral antibiotics. Patient reports that she's had significant increased pain and swelling along with on and off fever. Patient has a past medical history of hyperlipidemia, hypertension, GERD, IBS and thyroid disorder. CT of soft tissue of neck completed showing moderate inflammatory change of the mandible extending inferiorly. No well-formed fluid collection or drainable abscess. Blood cultures have been ordered. White blood cell 7.7. Lactic acid 0.9. Patient having low-grade temp 99.7. Patient has been started on c lindamycin infectious disease and ENT consulted. At this time patient is resting comfortably in bed. Patient having swelling to right side of jaw and under chin. Tender to touch. Patient denies chest pain or shortness of breath. Patient denies nausea vomiting or diarrhea. Patient denies any urinary burning or frequency Review of Systems please refer to HPI otherwise unremarkable Past Medical History Past Medical History: GERD/Reflux, Hyperlipidemia, Hypertension, Osteoarthritis (OA), Pneumonia, Thyroid Disorder Additional Past Medical History / Comment(s): IBS, diarrhea, diverticulitis, past liver abscess, hx gout, varicose veins, hiatal hernia, hx ulcers, History of Any Multi-Drug Resistant Organisms: None Reported Past Surgical History: Bowel Resection, Joint Replacement, Orthopedic Surgery, Tonsillectomy Additional Past Surgical History / Comment(s): Partial thyroidectomy, diagnostic laparoscopy, rt rotator cuff repair, Past Anesthesia/Blood Transfusion Reactions: Motion Sickness Past Psychological History: Anxiety, Depression Smoking Status: Never smoker Past Alcohol Use History: Daily Past Drug Use History: None Reported - Past Family History Father Family Medical History: Congestive Heart Failure (CHF), Coronary Artery Disease (CAD), Diabetes Mellitus Additional Family Medical History / Comment(s): Father at the age of 72 yrs. Mother Family Medical History: No Reported History Additional Family Medical History / Comment(s): Mother was healthy and lived to be 96 yrs old. Sister(s) Family Medical History: Cancer Additional Family Medical History / Comment(s): 1-sister breast cancer, 1-sister "bleeding disorder" Medications and Allergies Home Medications Medication Instructions Recorded Confirmed Type Escitalopram [Lexapro] 20 mg PO DAILY 03/01/18 02/13/21 History Omeprazole 40 mg PO DAILY 03/01/18 02/13/21 History buPROPion HCL [Wellbutrin XL] 300 mg PO DAILY 03/01/18 02/13/21 History amLODIPine BESYLATE/BENAZEPRIL 1 cap PO DAILY 04/12/18 02/13/21 History [Lotrel 5-10 MG] Levothyroxine Sodium 150 mcg PO DAILY 08/25/19 02/13/21 History HYDROcodone/APAP 5-325MG [[place] 1 tab PO Q6HR PRN #10 tab 09/02/19 02/13/21 Rx 5-325] Amoxicillin 500 mg PO QID 02/13/21 02/13/21 History Temazepam [Restoril] 15 mg PO HS PRN 02/13/21 02/13/21 History Allergies Allergy/AdvReac Type Severity Reaction Status Date / Time apple Allergy throat Verified 02/13/21 10:18 swelling peach Allergy throat Verified 02/13/21 10:18 swelling pear Allergy throat Verified 02/13/21 10:18 sweliing pet dander Allergy watery Uncoded 02/13/21 08:08 eyes, sneezing TREE FRUIT (NON-CITRUS) Allergy throat Uncoded 02/13/21 08:08 swelling Physical Exam Vitals: Vital Signs Temp Pulse Resp BP Pulse Ox 02/13/21 10:09 99.7 F H 88 16 117/65 97 02/13/21 08:05 99.6 F 113 H 18 150/87 99 Intake and Output 02/12/21 02/13/21 02/13/21 22:59 06:59 14:59 Other: Weight 77.111 kg Head normocephalic Neck supple. Edema noted to her chin area and right lower jaw Lungs clear to auscultation bilaterally no wheezing or crackles Heart regular rate and rhythm S1-S2, no rub or gallop Abdomen is soft nontender nondistended positive bowel sounds no hepatosplenomegaly Extremities no edema Neuro alert and orientated to 3 Results CBC & Chem 7: 02/13/21 08:39 02/13/21 08:39 Labs: Abnormal Lab Results - Last 24 Hours (Table) 02/13/21 02/13/21 Range/Units 08:39 08:39 Lymphocytes # 0.9 L (1.0-4.8) k/uL Glucose 109 H (74-99) mg/dL Assessment and Plan Assessment: 1. Submandibular cellulitis status post recent dental procedure. Patient started clindamycin and Unasyn. ENT and infectious disease service consulted. blood cultures ordered 2. History of hypothyroidism maintained on Synthroid 3. History of hyperlipidemia 4. History of GERD 5. History of diverticulitis 6. History of anxiety and depression DVT prophylaxis Lovenox. GI prophylaxis Pepcid Continue IV antibiotics Blood cultures ordered Continue ibuprofen and Tylenol when necessary Infectious disease and ENT service is consulted Repeat labs ordered Time with Patient: Greater than 30 (Greater than 60% of the total time spent in counseling and coordination of care)
[2021-02-13] MEDS: AMPICILLIN-SULBACTAM 3 GM in SODIUM CHLORIDE 0.9% 100 ML IVPB SCH ×2 (15:54→21:32)
[2021-02-13] MEDS ORDERED: CLINDAMYCIN 600 MG in DEXTROSE 5% IN WATER 50 ML IVPB SCH ×2 (16:00)
[2021-02-13] MEDS: HYDROcodone/APAP 5-325MG 1 EACH TAB PO PRN (16:05)
[2021-02-13] MEDS: TEMAZEPAM 15 MG CAP PO PRN (21:32)
[2021-02-13] MEDS: IBUPROFEN 400 MG TAB PO PRN (21:32)
[2021-02-14] MEDS: AMPICILLIN-SULBACTAM 3 GM in SODIUM CHLORIDE 0.9% 100 ML IVPB SCH ×4 (03:42→21:53)
[2021-02-14] MEDS: SODIUM CHLORIDE 0.9% 1,000 ML IV SCH ×3 (03:42→19:07)
[2021-02-14] MEDS: LEVOTHYROXINE 75 MCG TAB PO SCH (05:43)
--- NOTE | 2021-02-14 07:12 | CONS ---
CONSULTATION DATE OF SERVICE: 02/13/2021 REASON FOR CONSULTATION: Submandibular cellulitis. HISTORY OF PRESENT ILLNESS: The patient is a 65-year-old female who recently undergoing treatment for dental infection in this patient who did have an RCT done on Sunday. Afterwards, the patient started having increasing pain to the lower jaw area. The patient mentioned she went back to her dental surgeon who did remove some of the material from her infected area to let the area drain and has been treated with an oral amoxicillin. However, the patient noticed to having increasing swelling and pain to the lower jaw and submandibular area and the patient has been complaining of fever. Patient on presentation to the hospital did have a fever of 99.7 degrees. The patient did have a normal white count. The patient did have a CT of the soft tissue of the neck which show changes over the mandible extending inferiorly abscess. The patient has been treated with Unasyn 3 g q.6h along with clindamycin. Infectious Disease was consulted for further management for antibiotic therapy. The patient has been complaining of pain to the submandibular area to be more of a sharp and throbbing with intensity almost 7 to 8 out of 10, at times worsening, but no radiation of the pain. The patient currently did not have any open wound or any drainage. REVIEW OF SYSTEMS: Positive points have been mentioned in HPI. Rest of the systems are negative. PAST MEDICAL HISTORY: Gastroesophageal reflux disease, hypertension, hyperlipidemia, osteoarthritis, pneumonia, hypothyroidism, IBS and diverticulitis. PAST SURGICAL HISTORY: Bowel resection, joint placement, tonsillectomy, partial thyroidectomy, right rotator cuff repair. SOCIAL HISTORY: No history of smoking. Rarely drinks. No drug use. FAMILY HISTORY: Father with history of congestive heart failure and diabetes. Sister with a history of breast cancer. ALLERGIES: No known drug allergies. MEDICATIONS: The patient is currently on Tylenol, Harlan Norvasc, Unasyn, clindamycin, Wellbutrin, Lovenox, Lexapro, Motrin, Synthroid, Zestril, Narcan, Protonix and Restoril. PHYSICAL EXAMINATION: Blood pressure is 135/76, pulse of 87, temperature 98.6. T-max 99.7. She is 94% on room air. General description is a middle aged female up in the bed in no distress. No tachypnea or accessory muscles of respiration use. HEENT: Examination shows no pallor or scleral icterus. Oral mucous membranes moist. The patient did have minimal submandibular swelling. No significant redness. No fluctuation or any drainage. NECK: Trachea central. No thyromegaly. LUNGS unlabored breathing. Clear to auscultation anteriorly with no wheeze or crackles., HEART S1, S2. Regular rate and rhythm. ABDOMEN: Soft. No tenderness. No guarding. No rigidity. EXTREMITIES: No edema of the feet. SKIN: No rash or mass palpable. NEUROLOGICAL: Patient is awake, alert, oriented x3. Mood and affect normal. LABS: Hemoglobin is 14.2, white count 7.7, BUN of 8, creatinine 0.55. Electrolytes have been normal. CT report as mentioned above. DIAGNOSTIC IMPRESSION AND PLAN: Patient admitted to the hospital with fever, pain and swelling to the submandibular area in this patient did have recent infection has been treated with RCT, more likely related to the oral franklyn and need to cover for the polymicrobial franklyn usually associated with these infections. PLAN: 1. Patient to continue with Unasyn 3 grams q.6 hours. 2. Discontinue clindamycin. 3. Gentle IV fluid. 4. We will follow the clinical condition and culture to further adjust medication if needed. Thank you for this consultation. Will follow this patient along with you. MMODL / IJN: [id number] / NETTIE
[2021-02-14 07:47] LABS: Basophils % (A) 0 %; Eosinophils % (A) 0 %; HCT 35.9 % (34.0-46.0); HGB 12.2 gm/dL (11.4-16.0); Lymphocytes # (A) 0.6 k/uL (1.0-4.8); Lymphocytes % (A) 10 %; MCH 31.9 pg (25.0-35.0); MCV 93.7 fL (80.0-100.0); Mean Platelet Volume 8.3; Monocytes # (A) 0.3 k/uL (0-1.0); Monocytes % (A) 6 %; Neutrophils # (A) 4.6 k/uL (1.3-7.7); Neutrophils % (A) 82 %; Platelet Count 199 k/uL (150-450); RBC 3.83 m/uL (3.80-5.40); RDW 12.1 % (11.5-15.5); WBC 5.7 k/uL (3.8-10.6)
[2021-02-14] MEDS: PANTOPRAZOLE 40 MG TABLET PO SCH (08:02)
[2021-02-14] MEDS: ESCITALOPRAM 20 MG TAB PO SCH (08:03)
[2021-02-14] MEDS: amLODIPine 5 MG TAB PO SCH (08:03)
[2021-02-14] MEDS: lisinopriL 10 MG TAB PO SCH (08:03)
[2021-02-14] MEDS: buPROPion XL 300 MG TAB.ER.24H PO SCH (08:03)
[2021-02-14] MEDS: ENOXAPARIN 40 MG/0.4 ML SYRINGE SQ SCH (08:10)
[2021-02-14] MEDS: HYDROcodone/APAP 5-325MG 1 EACH TAB PO PRN ×2 (08:39→14:24)
[2021-02-14] MEDS: IBUPROFEN 400 MG TAB PO PRN ×3 (10:09→22:36)
[2021-02-14 10:13] LABS: African American GFR (CKD) 116.9 (60.0-200.0); Albumin 3.9 g/dL (3.80-4.90); Albumin/Globulin Ratio 1.86 (1.60-3.17); Anion Gap 9.9 mmol/L (4.00-12.00); Calcium 9.1 mg/dL (8.7-10.3); Carbon Dioxide 24.1 mmol/L (21.6-31.8); Globulin 2.1 g/dL (1.6-3.3); Non-African American GFR(CKD) 100.9 (60.0-200.0); Potassium 4.3 mmol/L (3.5-5.5); Total Bilirubin 0.2 mg/dL (0.2-1.2)
--- NOTE | 2021-02-14 13:52 | PN ---
PROGRESS NOTE DATE OF SERVICE: 02/14/2021. REASON FOR FOLLOWUP: Submandibular infection. INTERIM HISTORY: Patient is afebrile. The patient is breathing comfortably. The patient's submandibular pain and swelling has decreased. Denies any chest pain, shortness of breath. No nausea, vomiting, abdominal pain or diarrhea. PHYSICAL EXAMINATION: Blood pressure is 139/70 with a pulse of 90, temperature 98.1. She is 98% on room air. General description is a middle-aged female up in the bed in no distress. Respiratory system: Unlabored breathing, clear to auscultation anteriorly. Heart S1, S2. Regular rate and rhythm. Submandibular swelling and redness has decreased. LABS: Hemoglobin is 12.1, white count of 5.7. BUN of 8, creatinine 0.59. DIAGNOSTIC IMPRESSION AND PLAN: Patient with submandibular infection from infected right lower jaw tooth. The patient clinically responding to Unasyn to continue for another 24 hours before transition to oral antibiotics and continue supportive care. MMODL / IJN: [id number] /
--- NOTE | 2021-02-14 20:23 | P.PN ---
Subjective Progress Note Date: 02/14/21 This is a 65-year-old female patient of Dr. Nguyễn. Patient presented to ER with concerns of infection to tooth. Patient reports that she had a cath removed on the right lower molar on January 27. Patient reports that one week after Removal she started to have pain in the area shunt back to the dentist and a hole was drilled into his for drainage. At that time patient reports that she was started on oral antibiotics. Patient reports that she's had significant increased pain and swelling along with on and off fever. Patient has a past medical history of hyperlipidemia, hypertension, GERD, IBS and thyroid disorder. CT of soft tissue of neck completed showing moderate inflammatory change of the mandible extending inferiorly. No well-formed fluid collection or drainable abscess. Blood cultures have been ordered. White blood cell 7.7. Lactic acid 0.9. Patient having low-grade temp 99.7. Patient has been started on clindamycin infectious disease and ENT consulted. At this time patient is resting comfortably in bed. Patient having swelling to right side of jaw and under chin. Tender to touch. Patient denies chest pain or shortness of breath. Patient denies nausea vomiting or diarrhea. Patient denies any urinary burning or frequency On 02/14/2021 patient was seen and examined on the medical floor she is alert and oriented 3 in no distress, she is still complaining of pain and induration in the submandibular area otherwise she denies any complaints there is no fever or chills no headache or dizziness no chest pain no shortness of breath no cough no nausea or vomiting no abdominal pain no diarrhea no blood in the stools no burning with urination no frequency or urgency and no hematuria Objective - Vital Signs Vital signs: Vital Signs Temp 98.7 F 02/14/21 09:15 Pulse 98 02/14/21 09:15 Resp 18 02/14/21 09:15 BP 139/78 02/14/21 09:15 Pulse Ox 98 02/14/21 09:15 Intake & Output 02/13/21 02/14/21 02/14/21 18:59 06:59 18:59 Intake Total 800 1700 Balance 800 1700 Weight 77.111 kg Intake: Intake, IV Titration 800 1200 Amount Ampicillin-Sulbactam 3 gm 100 200 In Sodium Chloride 0.9% 100 ml @ 200 mls/hr IVPB Q6H [facility] Rx#:[id number] Clindamycin 600 mg In 50 Dextrose 5% in Water 50 ml @ 50 mls/hr IVPB Q8H [facility] Rx#:[id number] Sodium Chloride 0.9% 1, 650 1000 000 ml @ 130 mls/hr IV . Q7H42M [facility] Rx#:[id number] Oral 500 Other: Voiding Method Toilet Toilet # Voids 4 - Exam In general patient is alert and oriented x 3 in no distress HEENT there is tenderness and induration in the submandibular area mostly on the right side Neck is supple no JVD no goiter no lymphadenopathy no carotid bruit Chest examination is clear to auscultation no crackles no wheezing Cardiac exam reveals regular heart sounds S1 and S2 no gallops no murmurs Abdomen is soft nontender no organomegaly with normal bowel sounds Extremity exam reveals no edema no cyanosis or clubbing Neurological examination reveals no gross focal deficits - Labs CBC & Chem 7: 02/14/21 06:17 02/14/21 06:17 Labs: Abnormal Lab Results - Last 24 Hours (Table) 02/14/21 02/14/21 Range/Units 06:17 06:17 Lymphocytes # 0.6 L (1.0-4.8) k/uL BUN 8.0 L (9.0-27.0) mg/dL Creatinine 0.5 L (0.6-1.5) mg/dL Glucose 117 H (70-110) mg/dL Total Protein 6.0 L (6.2-8.2) g/dL Assessment and Plan Assessment: 1. Submandibular cellulitis status post recent dental procedure. Patient started clindamycin and Unasyn. ENT and infectious disease service consulted. blood cultures ordered 2. History of hypothyroidism maintained on Synthroid 3. History of hyperlipidemia 4. History of GERD 5. History of diverticulitis 6. History of anxiety and depression DVT prophylaxis Lovenox. GI prophylaxis Pepcid Continue IV antibiotics Blood cultures ordered Continue ibuprofen and Tylenol when necessary Infectious disease and ENT service is consulted Repeat labs ordered
[2021-02-14] MEDS: TEMAZEPAM 15 MG CAP PO PRN (21:53)
[2021-02-15] MEDS: HYDROcodone/APAP 5-325MG 1 EACH TAB PO PRN ×4 (01:26→22:05)
[2021-02-15] MEDS: SODIUM CHLORIDE 0.9% 1,000 ML IV SCH ×4 (02:00→22:14)
[2021-02-15] MEDS: AMPICILLIN-SULBACTAM 3 GM in SODIUM CHLORIDE 0.9% 100 ML IVPB SCH ×4 (04:09→22:06)
[2021-02-15 06:05] LABS: Basophils % (A) 1 %; Eosinophils # (A) 0.1 k/uL (0-0.7); Eosinophils % (A) 1 %; HCT 34.7 % (34.0-46.0); HGB 11.8 gm/dL (11.4-16.0); Lymphocytes # (A) 1.1 k/uL (1.0-4.8); Lymphocytes % (A) 18 %; MCH 31.9 pg (25.0-35.0); MCHC 33.9 g/dL (31.0-37.0); Mean Platelet Volume 8.2; Monocytes # (A) 0.4 k/uL (0-1.0); Monocytes % (A) 7 %; Neutrophils # (A) 4.5 k/uL (1.3-7.7); Neutrophils % (A) 73 %; Platelet Count 201 k/uL (150-450); RDW 12.3 % (11.5-15.5); WBC 6.2 k/uL (3.8-10.6)
[2021-02-15 06:17] LABS: ALT 11 U/L (4-34); AST 18 U/L (14-36); African American GFR (CKD) >90 (>60 ml/min/1.73 sqM); Albumin 3.2 g/dL (3.5-5.0); Alkaline Phosphatase 47 U/L (38-126); Anion Gap 4 mmol/L; Blood Urea Nitrogen 7 mg/dL (7-17); Calcium 8.9 mg/dL (8.4-10.2); Carbon Dioxide 30 mmol/L (22-30); Chloride 108 mmol/L (98-107); Glucose 91 mg/dL (74-99); Non-African American GFR(CKD) >90 (>60 ml/min/1.73 sqM); Sodium 142 mmol/L (137-145); Total Bilirubin 0.2 mg/dL (0.2-1.3); Total Protein 5.6 g/dL (6.3-8.2)
[2021-02-15] MEDS: LEVOTHYROXINE 75 MCG TAB PO SCH (06:20)
[2021-02-15] MEDS: PANTOPRAZOLE 40 MG TABLET PO SCH (06:21)
[2021-02-15] MEDS: IBUPROFEN 400 MG TAB PO PRN ×3 (06:22→17:53)
[2021-02-15] MEDS: ESCITALOPRAM 20 MG TAB PO SCH (09:08)
[2021-02-15] MEDS: lisinopriL 10 MG TAB PO SCH (09:08)
[2021-02-15] MEDS: amLODIPine 5 MG TAB PO SCH (09:08)
[2021-02-15] MEDS: buPROPion XL 300 MG TAB.ER.24H PO SCH (09:08)
[2021-02-15] MEDS: ENOXAPARIN 40 MG/0.4 ML SYRINGE SQ SCH (09:09)
--- NOTE | 2021-02-15 13:05 | PN ---
PROGRESS NOTE DATE OF SERVICE: 02/15/2021 REASON FOR FOLLOWUP: Submandibular infection. INTERVAL HISTORY: Patient is afebrile. The patient still complaining of some discomfort to submandibular area though has decreased in size and severity. The patient denies having any chest pain. No shortness of breath or cough. No nausea. No vomiting. No abdominal pain. No diarrhea. PHYSICAL EXAMINATION: Blood pressure 136/80 with a pulse of 87, temperature 98.4. She is 94% on room air. General description is an elderly female lying in bed in no distress. Respiratory system: Unlabored breathing. Clear to auscultation anteriorly. Heart S1, S2. Regular rate and rhythm. Abdomen soft, no tenderness. Some minimal area of swelling that has slightly decreased. LABS: Hemoglobin is 11, white count 6.2, BUN of 7, creatinine 0.49. Blood culture has been negative. DIAGNOSTIC IMPRESSION AND PLAN: Patient with submandibular infection with no evidence of any drainable abscess. The patient slowly clinically responding to Unasyn to continue for another 24 hours before transition to oral antibiotics and continue supportive care. MMODL / IJN: [id number] /
[2021-02-16] MEDS: AMPICILLIN-SULBACTAM 3 GM in SODIUM CHLORIDE 0.9% 100 ML IVPB SCH ×3 (03:46→15:05)
[2021-02-16] MEDS: HYDROcodone/APAP 5-325MG 1 EACH TAB PO PRN ×3 (05:27→15:04)
[2021-02-16] MEDS: LEVOTHYROXINE 75 MCG TAB PO SCH (05:42)
[2021-02-16] MEDS: PANTOPRAZOLE 40 MG TABLET PO SCH (06:23)
[2021-02-16] MEDS: SODIUM CHLORIDE 0.9% 1,000 ML IV SCH ×2 (07:53→09:07)
[2021-02-16] MEDS: lisinopriL 10 MG TAB PO SCH (09:06)
[2021-02-16] MEDS: ESCITALOPRAM 20 MG TAB PO SCH (09:06)
[2021-02-16] MEDS: IBUPROFEN 400 MG TAB PO PRN ×2 (09:06→15:04)
[2021-02-16] MEDS: ENOXAPARIN 40 MG/0.4 ML SYRINGE SQ SCH (09:07)
[2021-02-16] MEDS: buPROPion XL 300 MG TAB.ER.24H PO SCH (09:07)
[2021-02-16] MEDS: amLODIPine 5 MG TAB PO SCH (09:07)
--- NOTE | 2021-02-16 14:42 | P.PN ---
Progress Note - Text Progress Note Date: 02/16/21 REASON FOR FOLLOWUP: Submandibular infection. INTERVAL HISTORY: The patient denies having any fever or any chills, the patient submandibular pain and swelling has decreased, the patient denies having any chest pain shortness with a cough denies difficulty swallowing or difficulty breathing PHYSICAL EXAMINATION: Blood pressure 136/80 with a pulse of 87, temperature 98.4. She is 94% on room air. General description is an elderly female lying in bed in no distress. Respiratory system: Unlabored breathing. Clear to auscultation anteriorly. Heart S1, S2. Regular rate and rhythm. Abdomen soft, no tenderness. Some minimal area of swelling that has slightly decreased. LABS: Blood culture has been negative. DIAGNOSTIC IMPRESSION AND PLAN: Patient with submandibular infection with no evidence of any drainable abscess. The patient has shown overall clinical improvement, antibiotic will be transitioned to Augmentin 8 7 5 mg twice a day for 2 weeks prescription has been sent to the pharmacy and a close outpatient follow-up
[2021-02-16 14:45] VITALS: BP 130/73; PULSE 72; RESP 16; TEMP 97.8
--- NOTE | 2021-02-16 15:53 | P.PN ---
Subjective Progress Note Date: 02/15/21 This is a 65-year-old female patient of Dr. Nguyễn. Patient presented to ER with concerns of infection to tooth. Patient reports that she had a cath removed on the right lower molar on January 27. Patient reports that one week after Removal she started to have pain in the area shunt back to the dentist and a hole was drilled into his for drainage. At that time patient reports that she was started on oral antibiotics. Patient reports that she's had significant increased pain and swelling along with on and off fever. Patient has a past medical history of hyperlipidemia, hypertension, GERD, IBS and thyroid disorder. CT of soft tissue of neck completed showing moderate inflammatory change of the mandible extending inferiorly. No well-formed fluid collection or drainable abscess. Blood cultures have been ordered. White blood cell 7.7. Lactic acid 0.9. Patient having low-grade temp 99.7. Patient has been started on clindamycin infectious disease and ENT consulted. At this time patient is resting comfortably in bed. Patient having swelling to right side of jaw and under chin. Tender to touch. Patient denies chest pain or shortness of breath. Patient denies nausea vomiting or diarrhea. Patient denies any urinary burning or frequency On 02/14/2021 patient was seen and examined on the medical floor she is alert and oriented 3 in no distress, she is still complaining of pain and induration in the submandibular area otherwise she denies any complaints there is no fever or chills no headache or dizziness no chest pain no shortness of breath no cough no nausea or vomiting no abdominal pain no diarrhea no blood in the stools no burning with urination no frequency or urgency and no hematuria On 02/15/2021 patient was seen and examined on the medical floor she is alert and oriented 3 in no apparent distress she still have significant induration and tenderness in the submandibular area she was evaluated by Dr. Graves infectious disease and the recommendation is to continue with IV antibiotic for 1 more day will recheck in a.m.. Objective - Vital Signs Vital signs: Vital Signs Temp 98.8 F 02/15/21 14:30 Pulse 79 02/15/21 14:30 Resp 16 02/15/21 14:30 BP 142/83 02/15/21 14:30 Pulse Ox 95 02/15/21 14:30 Intake & Output 0602/15/21 02/15/21 18:59 06:59 18:59 Intake Total 200 Balance 200 Intake: Oral 200 Other: Voiding Method Toilet Toilet # Voids 2 1 4 - Exam In general patient is alert and oriented x 3 in no distress HEENT there is tenderness and induration in the submandibular area mostly on the right side Neck is supple no JVD no goiter no lymphadenopathy no carotid bruit Chest examination is clear to auscultation no crackles no wheezing Cardiac exam reveals regular heart sounds S1 and S2 no gallops no murmurs Abdomen is soft nontender no organomegaly with normal bowel sounds Extremity exam reveals no edema no cyanosis or clubbing Neurological examination reveals no gross focal deficits - Labs CBC & Chem 7: 02/15/21 05:42 02/15/21 05:42 Labs: Abnormal Lab Results - Last 24 Hours (Table) 02/15/21 02/15/21 Range/Units 05:42 05:42 RBC 3.70 L (3.80-5.40) m/uL Chloride 108 H (98-107) mmol/L Creatinine 0.49 L (0.52-1.04) mg/dL Total Protein 5.6 L (6.3-8.2) g/dL Albumin 3.2 L (3.5-5.0) g/dL Microbiology - Last 24 Hours (Table) 02/13/21 08:38 Blood Culture - Preliminary Blood No Growth after 48 hours 02/13/21 08:39 Blood Culture - Preliminary Blood No Growth after 48 hours Assessment and Plan Assessment: 1. Submandibular cellulitis status post recent dental procedure. Patient st arted clindamycin and Unasyn. ENT and infectious disease service consulted. blood cultures ordered 2. History of hypothyroidism maintained on Synthroid 3. History of hyperlipidemia 4. History of GERD 5. History of diverticulitis 6. History of anxiety and depression DVT prophylaxis Lovenox. GI prophylaxis Pepcid Continue IV antibiotics Blood cultures ordered Continue ibuprofen and Tylenol when necessary Infectious disease and ENT service is consulted Repeat labs ordered
--- NOTE | 2021-02-16 15:55 | P.DS ---
Providers Date of admission: 02/13/21 10:03 Expected date of discharge: 02/16/21 Attending physician: Sudeep Campos Consults: 02/13/21 10:53 Consult Physician Routine Consulting Provider: Willy Graves Consult Reason/Comments: submandibular cellulitis Do you want consulting provider notified?: Yes Primary care physician: Kelly Nguyễn [facility] Course: Diagnoses on discharge: This is a 65-year-old female patient of Dr. Nguyễn. Patient presented to ER with concerns of infection to tooth. Patient reports that she had a cath removed on the right lower molar on January 27. Patient reports that one week after Removal she started to have pain in the area shunt back to the dentist and a hole was drilled into his for drainage. At that time patient reports that she was started on oral antibiotics. Patient reports that she's had significant increased pain and swelling along with on and off fever. Patient has a past medical history of hyperlipidemia, hypertension, GERD, IBS and thyroid disorder. CT of soft tissue of neck completed showing moderate inflammatory change of the mandible extending inferiorly. No well-formed fluid collection or drainable abscess. Blood cultures have been ordered. White blood cell 7.7. Lactic acid 0.9. Patient having low-grade temp 99.7. Patient has been started on clindamycin infectious disease and ENT consulted. At this time patient is resting comfortably in bed. Patient having swelling to right side of jaw and under chin. Tender to touch. Patient denies chest pain or shortness of breath. Patient denies nausea vomiting or diarrhea. Patient denies any urinary burning or frequency On 02/14/2021 patient was seen and examined on the medical floor she is alert and oriented 3 in no distress, she is still complaining of pain and induration in the submandibular area otherwise she denies any complaints there is no fever or chills no headache or dizziness no chest pain no shortness of breath no cough no nausea or vomiting no abdominal pain no diarrhea no blood in the stools no burning with urination no frequency or urgency and no hematuria On 02/15/2021 patient was seen and examined on the medical floor she is alert and oriented 3 in no apparent distress she still have significant induration and tenderness in the submandibular area she was evaluated by Dr. Graves infectious disease and the recommendation is to continue with IV antibiotic for 1 more day will recheck in a.m.. On 1Patient was seen and examined on the medical floor, he is alert and oriented x 3 in no distress, he denies any complaints there is no fever or chills no headache or dizziness no chest pain no shortness of breath no palpitation no cough no nausea or vomiting no abdominal pain no diarrhea no blood in the stools no burning with urination no frequency or urgency and no hematuria, there is no weakness or numbness in any of the extremities no change in vision speech or gait. Patient has significant improvement since yesterday she was reevaluated by Dr. Graves recommendation at this time is to discharge to home on a course of Augmentin prescription was sent to pharmacy, patient is requesting pain medication she was given [place] 5/325 one every 6 hours when necessary #12 tablets she will follow-up with her primary care physician for further treatment Hospital course: 1. Submandibular cellulitis status post recent dental procedure. Patient started clindamycin and Unasyn. ENT and infectious disease service consulted. blood cultures ordered 2. History of hypothyroidism maintained on Synthroid 3. History of hyperlipidemia 4. History of GERD 5. History of diverticulitis 6. History of anxiety and depression Patient Condition at Discharge: Good Plan - Discharge Summary Discharge Rx Participant: No New Discharge Prescriptions: New Amoxicillin/Potassium Clav [Augmentin 875-125 Tablet] 1 tab PO BID 14 Days #28 tab Continue buPROPion HCL [Wellbutrin XL] 300 mg PO DAILY Escitalopram [Lexapro] 20 mg PO DAILY Omeprazole 40 mg PO DAILY amLODIPine BESYLATE/BENAZEPRIL [Lotrel 5-10 MG] 1 cap PO DAILY Levothyroxine Sodium 150 mcg PO DAILY HYDROcodone/APAP 5-325MG [[place] 5-325] 1 tab PO Q6HR PRN #10 tab PRN Reason: Pain Temazepam [Restoril] 15 mg PO HS PRN PRN Reason: Insomnia Discontinued Amoxicillin 500 mg PO QID Discharge Medication List Escitalopram [Lexapro] 20 mg PO DAILY 03/01/18 [History] Omeprazole 40 mg PO DAILY 03/01/18 [History] buPROPion HCL [Wellbutrin XL] 300 mg PO DAILY 03/01/18 [History] amLODIPine BESYLATE/BENAZEPRIL [Lotrel 5-10 MG] 1 cap PO DAILY 04/12/18 [History] Levothyroxine Sodium 150 mcg PO DAILY 08/25/19 [History] HYDROcodone/APAP 5-325MG [[place] 5-325] 1 tab PO Q6HR PRN #10 tab 09/02/19 [Rx] Temazepam [Restoril] 15 mg PO HS PRN 02/13/21 [History] Amoxicillin/Potassium Clav [Augmentin 875-125 Tablet] 1 tab PO BID 14 Days #28 tab 02/16/21 [Rx] Follow up Appointment(s)/Referral(s): Kelly Nguyễn MD [Primary Care Provider] - 02/18/21 9:30 am (Andrea. MENDIETA) Activity/Diet/Wound Care/Special Instructions: Continue diet as tolerated. fluids are encouraged. Continue antibiotics as directed and finish course as directed by physician. Start antibiotic tonight before bed 930 or 10pm. Follow up with your family physician. Appointment has been made for you. Call physician with any questions comments concerns worsening returning symptoms, fever 101, not tolerating diet or fluids, pain not controlled by medications prescribed.
== END 2021-02-16 16:29 | disposition home or self-care (01) ==
LOC: EC 08:04 → INTOOBSV 10:03 → 5NMEDONC 10:03 → 6PED 02-14 09:28 → UNDODISIN 02-16 16:29
PROVIDERS: ADMIT Internal Medicine; ATTEND Internal Medicine
DX: K12.2 Cellulitis and abscess of mouth (principal); K04.7 Periapical abscess without sinus; E78.5 Hyperlipidemia, unspecified; I10 Essential (primary) hypertension; K21.9 Gastro-esophageal reflux disease without esophagitis; K58.9 Irritable bowel syndrome, unspecified; M19.90 Unspecified osteoarthritis, unspecified site; K58.0 Irritable bowel syndrome with diarrhea; M10.9 Gout, unspecified; F41.9 Anxiety disorder, unspecified; E89.0 Postprocedural hypothyroidism; F32.9 Major depressive disorder, single episode, unspecified; Z20.822 Contact with and (suspected) exposure to COVID-19; Z87.01 Personal history of pneumonia (recurrent); Z87.19 Personal history of other diseases of the digestive system; Z79.899 Other long term (current) drug therapy; Z79.890 Hormone replacement therapy; Z91.018 Allergy to other foods; J30.81 Allergic rhinitis due to animal (cat) (dog) hair and dander; Z82.49 Family history of ischemic heart disease and other diseases of the circulatory system; Z83.3 Family history of diabetes mellitus; Z80.3 Family history of malignant neoplasm of breast; Z83.2 Family history of diseases of the blood and blood-forming organs and certain disorders involving the immune mechanism
CPT/HCPCS: 96361 ×5; 96366 ×5; 96365; 96367; 96375; 99285; 36415; 80053 ×3; 83605; 85025 ×3; 87040; 87635; 70491; G0378 ×5; J1100; J0295 ×4; Q9967

== ENCOUNTER → 2021-03-22 | Outpatient (CLI) | payer MEDICARE ==
--- NOTE | 2021-03-22 12:57 | BD ---
EXAMINATION TYPE: Axial Bone Density DATE OF EXAM: 03/22/2021 COMPARISON: NONE CLINICAL HISTORY: 66 YR OLD FEMALE....ICD-10 CODE: Z78.0 MENOPAUSAL STATE Height: 64 Weight: 171 FRAX RISK QUESTIONS: Family History (Parent hip fracture): YES Glucocorticoids (More than 3mos): NOT REGULARLY (Ex: prednisone, prednisolone, methylprednisolone, dexamethasone, and hydrocortisone). History of Fracture in Adulthood: YES RISK FACTORS HISTORY OF: HX OF FXS OF SEVERAL TOES AN ADULT History of Wrist Fracture: RT WRIST AN ADULT, Family History of Osteoporosis: YES, HER MOTHER WITH HIP FX Postmenopausal woman: YES, AT AGE 52 Hyperparathyroidism: NO Adrenal Insufficiency: NO MEDICATIONS: Prednisone or other steroids: YES, IN THE PAST FOR LUNGS AND INFECTION AND SWELLING Thyroid Medications: YES, SYNTHROID FOR ABOUT 20 YRS Additional Medications: BP MEDS, LEXAPRO AND WELLBUTRIN, REFLUX MEDS, VIT D Additional History: HYPERTENSION, REFLUX, DEPRESSION, EXAM MEASUREMENTS: Bone mineral densitometry was performed using the [employer]. Bone mineral density as measured about the Lumbar spine is: ----- L1-L4(G/cm2): 1.084 T Score Values are as follows: ----- L1: -0.9 ----- L2: -1.4 ----- L3: -0.7 ----- L4: -0.4 ----- L1-L4: -0.8 Bone mineral density FIRST DEXA SCAN....BASELINE STUDY Bone mineral density about the R hip (g/cm2): 1.012 Bone mineral density about the L hip (g/cm2): 0.970 T Score values are as follows: -----R Neck: -1.0 -----L Neck: -1.0 -----R Total: 0.0 -----L Total: -0.3 Bone mineral density BASELINE STUDY FRAX%s: THERE IS A 23.3% CHANCE FOR A MAJOR OSTEOPOROTIC FX AND A 1.5% FOR HIP......PROBABILITY F OR FX IN 10 YRS TIME IMPRESSION: No evidence for osteoporosis or osteopenia NOTE: T-SCORE=SD OF THE YOUNG ADULT MEAN.
--- NOTE | 2021-03-24 11:51 | MM ---
Reason for exam: screening (asymptomatic). Last mammogram was performed 2 years and 11 months ago. History: Patient is postmenopausal. Family history of breast cancer in sister at age 46. Physical Findings: A clinical breast exam by your physician is recommended on an annual basis and results should be correlated with mammographic findings. MG 3D Screening Mammo W/Cad Bilateral CC and MLO view(s) were taken. Prior study comparison: April 10, 2018, bilateral MG 3d screening mammo w/cad. The breast tissue is heterogeneously dense. This may lower the sensitivity of mammography. There is no discrete abnormality. No significant changes when compared with prior studies. ASSESSMENT: Negative, BI-RAD 1 RECOMMENDATION: Routine screening mammogram of both breasts in 1 year.
== END | disposition home or self-care (01) ==
LOC: RADBDWWP 10:09
PROVIDERS: ATTEND Family Medicine
DX: Z12.31 Encounter for screening mammogram for malignant neoplasm of breast (principal); Z78.0 Asymptomatic menopausal state
CPT/HCPCS: 77063; 77067; 77080

== ENCOUNTER → 2022-03-27 | Outpatient (CLI) | payer MEDICARE ==
--- NOTE | 2022-03-28 08:47 | MM ---
Reason for Exam: Screening (asymptomatic). Last mammogram was performed 1 year(s) and 1 month(s) ago. Patient History: Menarche at age 12. Postmenopausal. Sister had breast cancer, age 46. Risk Values: Kelsy 5 year model risk: 3.2%. NCI Lifetime model risk: 10.1%. Prior Study Comparison: 04/10/2018 Bilateral Screening Mammogram, [facility]. 03/22/2021 Bilateral Screening Mammogram, [facility]. Tissue Density: The breast tissue is almost entirely fat. Findings: Analyzed By CAD. There is no suspicious group of microcalcifications or new suspicious mass in either breast. Overall Assessment: Negative, BI-RAD 1 Management: Screening Mammogram of both breasts in 1 year. A clinical breast exam by your physician is recommended on an annual basis and results should be correlated with mammographic findings. Electronically signed and approved by: Rohith Retana DO
== END | disposition home or self-care (01) ==
LOC: RADMAMWWP 10:01
PROVIDERS: ATTEND Family Medicine
DX: Z12.31 Encounter for screening mammogram for malignant neoplasm of breast (principal); Z78.0 Asymptomatic menopausal state; Z80.3 Family history of malignant neoplasm of breast
CPT/HCPCS: 77063; 77067

== ENCOUNTER → 2024-05-06 | Outpatient (CLI) | payer MEDICARE ==
--- NOTE | 2024-05-07 10:03 | BD ---
EXAMINATION TYPE: Axial Bone Density DATE OF EXAM: 05/06/2024 CLINICAL HISTORY: 69 years old Female. ICD-10 CODE: Z78.0 Postmenopausal w Height: 65 Weight: 163.4 FRAX RISK QUESTIONS: Alcohol (3 or more units per day): no Family History (Parent hip fracture): mother Glucocorticoids (More than 3mos): no (Ex: prednisone, prednisolone, methylprednisolone, dexamethasone, and hydrocortisone). History of Fracture in Adulthood: yes Secondary Osteoporosis: 1. Type 1 Diabetes: no 2. Hyperthyroidism: no 3. Menopause before 45: no 4. Malnutrition: no 5. Chronic liver disease: no Rheumatoid Arthritis: no Current Tobacco Use: no RISK FACTORS HISTORY OF: Hip Fracture (Right/Left): no Spine Fracture: no History of Wrist Fracture: RT Wrist Fx 2019 Surgery to Spine/Hip(right/left)/Wrist (right/left): no MEDICATIONS: Thyroid Medications: Levothyroxine How Long: past 40 years Osteoporosis Medications: no EXAM MEASUREMENTS: Bone mineral densitometry was performed using the [employer] System. Bone mineral density as measured about the Lumbar spine is: ----- L1-L4(G/cm2): 0.951 T Score Values are as follows: ----- L1: -1.6 ----- L2: -1.9 ----- L3: -2.0 ----- L4: -2.3 ----- L1-L4: -1.9 Z Score Values are as follows: ----- L1: -0.2 ----- L2: -0.6 ----- L3: -0.6 ----- L4: -0.9 ----- L1-L4: -0.5 Bone mineral density has: decreased -12.3% since study of: 03/22/2021 Bone mineral density about the R hip (g/cm2): 0.936 Bone mineral density about the L hip (g/cm2): 0.884 T Score values are as follows: -----R Neck: -1.4 -----L Neck: -1.6 -----R Total: -0.6 -----L Total: -1.0 Z Score values are as follows: -----R Neck: 0.1 -----L Neck: -0.1 -----R Total: 0.7 -----L Total: 0.3 Bone mineral density has: decreased -8.2 % since study of: 03/22/2021 FRAX%s: The graph provided illustrates a 24.7% chance for a major osteoporotic fx and a 5.0% chance f or the hips probability for fx in 10 years time. IMPRESSION: Osteopenia (T Score between -2.5 and -1). There is slightly increased risk of fracture and the patient may be considered for treatment. Re-Screen 2-5 years. NOTE: T-SCORE=SD OF THE YOUNG ADULT MEAN.
--- NOTE | 2024-05-07 11:08 | MM ---
Reason for Exam: Screening (asymptomatic). Last mammogram was performed 2 year(s) and 1 month(s) ago. Patient History: Menarche at age 12. Patient has no children. Postmenopausal. Sister had breast cancer, age 46. Risk Values: Kelsy 5 year model risk: 3.4%. NCI Lifetime model risk: 9.7%. Prior Study Comparison: 04/10/2018 Bilateral Screening Mammogram, [facility]. 03/22/2021 Bilateral Screening Mammogram, [facility]. 03/27/2022 Bilateral MG 3D screening mammo w/cad, [facility]. Tissue Density: There are scattered areas of fibroglandular density. Findings: Analyzed By CAD. There is no suspicious group of microcalcifications or new suspicious mass in either breast. Overall Assessment: Benign, BI-RAD 2 Management: Screening Mammogram of both breasts in 1 year. . Patient should continue monthly self-breast exams. A clinical breast exam by your physician is recommended on an annual basis. This exam should not preclude additional follow-up of suspicious palpable abnormalities. Note on Kelsy scores and lifetime risk: 1. A Kelsy score greater than 3% is considered moderate risk. If this is the case, consider specialist referral to assess eligibility for a risk reducing agent. 2. If overall lifetime risk for the development of breast cancer is 20% or higher, the patient may qualify for future screening with alternating mammogram and breast MRI. Electronically signed and approved by: Jimmy Brizuela M.D. Radiologis
== END | disposition home or self-care (01) ==
LOC: RADMAMWWP 15:07
PROVIDERS: ATTEND Family Medicine
DX: Z12.31 Encounter for screening mammogram for malignant neoplasm of breast (principal); R92.323 Mammographic fibroglandular density, bilateral breasts; M85.89 Other specified disorders of bone density and structure, multiple sites; Z78.0 Asymptomatic menopausal state; Z80.3 Family history of malignant neoplasm of breast
CPT/HCPCS: 77063; 77067; 77080